=== PATIENT | female | born 1985 | race Caucasian/White ===

== ENCOUNTER 2017-03-22 01:49 | Emergency (ER) | payer MEDICARE, MEDICAID ==
[~2017-03-22] VITALS: Ht 172.7 cm; Wt 205.5 kg
[~2017-03-22 01:49] MED LIST: ADVAIR DISK28 PUFFS IN; ALBUTEROL-200 PUFFS/ IH; ALBUTEROL2.5 MG/NEB IN; ALLOPURINOL100 MG PO; AMLODIPINE10 MG PO; BUSPAR 5MG TAB5 MG PO; CELEXA PO; CLONIDINE 0.2M0.2 MG PO; COLCRYS0.6 MG GT; DULERA1 AR1 IH; FLEXERIL10 MG PO; FLONASE 50 MCG16 GM; GABAPENTIN100 M1 PO; IMITREX 25MG TA25 MG PO; INCRUSE EL62.5 MCG/A IH; KEFLEX 500MG.500 MG PO; KLONOPIN1 MG PO; LIBRIUM10 MG PO; LISINOPRIL/HCTZ1 TA3 PO; METFORMIN500 MG PO; NORCO 325 MG-51 TAB PO; NOVOLIN 70/30 710 ML SC; PATANASE0.6% NS; PREDNISONE 20MG20 MG PO; PRILOSEC40 MG PO; RANITIDINE150 M1 PO; REGLAN 5MG TABLE5 MG PO; SINGULAIR10 MG PO; SYMLIN0.6 MG/ML SC; THEO-24200 MG PO; TOPAMAX100 MG PO; TRAZODONE100 MG PO; TUDORZA PR400 MCG/Ac IH; TYLENOL W/CODEI1 TA2 PO; ZOFRAN ODT4 MG PO
[2017-03-22 03:03] LABS: LYMPH # 1.8 K/mm3 (0.7-4.5); LYMPH % 12.6 % (10-50.0)
[2017-03-22 03:12] LABS: HEMOGLOBIN 10.3 g/dL (12.2-16.2)
--- NOTE | 2017-03-22 03:45 | Emergency Room Report ---
History of Present Illness Time Seen by MD Wilson Presenting Problem in Triage Pt arrived:Wheelchair Presenting Problem:RIGHT MID QUADRANT PAIN STARTED A FEW HOURS AGO, N/V/ VOMITED TWICE. 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 N Clinical Suspician of Infection? N Mental Status: 1 - Regular (Normal Baseline) Sepsis Risk:Possible Sepsis Risk Have you (or family members/close friends) recently traveled outside the [place]? N If Yes, where/when: Have you had exposure to infectious disease within the past month? N TB? Other? Specify: Source patient, RN notes reviewed, family, old records Exam Limitations no limitations Comment pt with rt sided abd pain which pt has had in past with sl diarrhea but no rash or trauma Cardiac Chest Pain Chest pain indicative of cardiac No Timing/Duration this evening Severity moderate ALLERGIES Coded Allergies: Nuts (Food) (Severe, S-ANAPHYLAXIS 03/08/16) flaxseed (Mild, 03/08/16) latex (Mild, 03/08/16) Penicillins (08/15/16) Home Medications Active Scripts Prednisone (Prednisone 20MG) 20 MG PO BID #10 TAB Prov: 03/20/13 Ondansetron (Zofran 4MG Odt) 4 MG PO Q8HP PRN NAUSEA AND VOMITING #10 ODT Prov: 07/18/16 Reported Medications ALBUTEROL (Albuterol 0.083% Neb) 2.5 MG IN PRN Albuterol (Albuterol-Hfa Inhaler) 2 PUFFS IH PRN #1 INH [CELEXA] 1 TAB PO DAILY Trazodone Hcl (Trazodone HCl) 100 MG PO QHS Montelukast Sodium (Singulair) 10 MG PO QHS Topiramate (Topamax) 100 MG PO DAILY Sumatriptan Succinate (Imitrex 25MG Tablet) 25 MG PO PRN THEOPHYLLINE (Theophylline Anhydrous) 300 MG PO BID Clonazepam (Klonopin 1MG) 1 MG PO BID Clonidine Hydrochloride (Clonidine 0.2MG Tab) 0.1 MG PO BID Fluticasone Propionate (Flonase 50 Mcg Nasal [place]) 1 SPRAY NA BID Amlodipine Besylate (Amlodipine) 10 MG PO DAILY Allopurinol 100 MG PO TID Omeprazole (Prilosec 40mg Cap) 40 MG PO DAILY OLOPATADINE HCL (Patanase NASAL) 1 SPRAY NS BID Gabapentin (Gabapentin 100MG) 100 MG PO TID Metoclopramide Hcl (Reglan) 5 MG PO AC FLUTICASONE/SALMETEROL (Advair 500-50 Diskus) 1 PUFF IN BID UMECLIDINIUM BROMIDE (Incruse Ellipta) 62.5 MCG IH DAILY History Medical History General CAD? No Angina: No [place]: No Hypertension? Yes Hyperlipidemia? No CHF? No DVT? No PE? No COPD? No Asthma? Yes Anemia? No GERD? No Gastric ulcers? No GI Bleed? No Hernia? No Thyroid Problems? No Hypothyroidism? No CVA? No Seizures? Yes Diabetes? Yes Insulin Dependent: Yes Insulin Pump: No Home FSBS? Yes Renal Insuffiency? No End Stage Renal Disease? No UTI? No Stones? No BPH? No GB Disease: No Nephritic Syndrome? No Asplenia? No Hepatitis? No Sickle Cell Disease? No Arthritis? No Migraines? Yes Cataracts? No Glaucoma? No MRSA? No HIV? No TB? No Anxiety? No Depression? No Cancer? No More? 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 Respiratory denies cough, denies shortness of breath, denies wheezing Cardiovascular denies chest pain, denies syncope Gastrointestinal see HPI, abdominal pain, nausea Genitourinary denies: dysuria, frequency, hesitancy, hematuria. Musculoskeletal denies back pain, denies joint pain, denies joint swelling, denies neck pain Skin denies rash Psychiatric/Neurological denies headache, denies seizure Physical Exam Vital Signs Vital Signs Date Time Temp Pulse Resp B/P Pulse O2 O2 Flow FiO2 Ox Delivery Rate 03/22 0311 20 03/22 0154 97.7 104 20 153/76 94 - WBC >12,000 or <4,000 or 10% bands? 2 or more SIRS Criteria Met? B/P:153/ MAP:101 Creatinine >2.0? UA output<0.5ml/kg/hr for 2 hrs? Platelet count >100,000? Lactate >2.0mmol/1? INR >1.2 or PTT > than 60 sec? Evidence of Organ Dysfunction? Provider documented clinical suspician of infection? N Sepsis Criteria Count: 2 Sepsis Risk: Possible Sepsis Risk General Appearance no apparent distress Eye Exam - bilateral eye PERRL, bilateral eye EOMI Ear, Nose, Throat normal ENT inspection Neck limited range of motion Respiratory Status No: respiratory distress. 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 No Results/Orders Laboratory Tests 03/22/17 0255: Sodium 146 H, Potassium 3.0 L, Chloride 107, Carbon Dioxide 28, BUN 12, Creatinine 1.0, Estimated Creat Clear 262 H, Estimated GFR (MDRD) 64, Glucose 99, Calcium 8.7, Total Bilirubin 0.4, AST 12 L, ALT 18, Alkaline Phosphatase 128 H, Total Protein 7.0, Albumin 3.3 L, Globulin 3.7 H, Albumin/Globulin Ratio 0.9 L, Amylase 13 L, Lipase 98, WBC 14.1 H, RBC 4.06 L, Hgb 10.3 L, Hct 34.3 L, MCV 84.4, RDW 15.6, Plt Count 225, MPV 7.7, Gran % 83.6 H, Gran # 11.8 H, Lymphocytes % 12.6, Monocytes % 2.9, Eosinophils % 0.6, Basophils % 0.3 , Lymphocytes # 1.8, Monocytes # 0.4, Eosinophils # 0.1, Basophils # 0.1, PUBS MCHC 30.1 L, MCH 25.4 L Current Medication Orders Sig/Lola Start time Last Medication Dose Route Stop Time Status Admin Ketorolac 30 MG ONCE ONE 03/22 315 DC 03/22 Tromethamine IV 03/22 316 0311 Ondansetron HCl 4 MG ONCE ONE 03/22 315 DC 03/22 IV 03/22 316 0310 Ondansetron HCl 0 .STK-MED ONE 03/22 0308 DC .ROUTE Ketorolac 0 .STK-MED ONE 03/22 0307 DC Tromethamine .ROUTE Sodium Chloride 10 ML PRN PRN 03/22 0215 AC IV 03/23 0201 Sodium Chloride 1,000 ML .STK-MED ONE 03/22 0209 DC IV Orders Procedure Date/time Status DIET-NOTHING BY MOUTH 03/[address] ABD & PELVIS W/O CONTRAST 03/[address] SCAN REQ 03/22 020 Active IV SALINE LOCK 03/22 020 Active URINALYSIS/COMPLETE 03/22 0201 Active LIPASE 03/22 0201 Complete COMPLETE METABOLIC PANEL 03/22 0201 Complete CBC WITH AUTO DIFF 03/22 0201 Complete AMYLASE 03/22 0201 Complete XRAY/CT/US XRAY/CT/US CT abdomen, pelvis CT interpretation by discussed w/radiologist Time results known: 0342 CT Results abnormal (see report) Departure Departure Time of Disposition 034 Disposition DC Home or Self Care(routine) Clinical Impression Primary Impression: Acute flank pain Condition STABLE Patient Instructions DI for Flank Pain Additional Instructions keep apt thursday with pcp and use meds as directed Discharge Counseling Counseled pt/family regarding diagnosis, test results, medications/RX, follow up needs Prescriptions Current Visit Scripts CEPHALEXIN (Keflex 500MG Capsule) 500 MG PO Q8H #21 CAP ED Critical Care Critical Care No at 0404
[2017-03-22] MEDS ORDERED: KEFLEX 500MG.500 MG PO (04:04)
[2017-03-22 04:27] VITALS: BP 143/72
--- NOTE | 2017-03-22 09:08 | RADIOLOGY REPORT PS360 ---
CT ABD PELVIS W/O CONTRAST CLINICAL INDICATION: Right upper quadrant abdominal pain ABD PAIN ORDERING PHYSICIAN: Peri Quintero MD PATIENT AGE: 32 years COMPARISON: 09/12/2016 TECHNIQUE: Axial images obtained with sagittal and coronal reformats. PROCEDURE: Oral Contrast: None IV Contrast: None . FINDINGS: Lung bases are clear. There are old fractures of the right eighth and ninth ribs. The exam is limited secondary to patient body habitus and the field of view. The peripheral part of the liver inferiorly as well as the anterior abdominal wall is incompletely visualized. There is hepatosplenomegaly. No focal liver lesion is demonstrated however peripheral lesions may not be detected. No hydronephrosis or hydroureter. Unremarkable adrenal glands and pancreas. No intestinal obstruction or free air. No evidence of appendicitis or diverticulitis. No abnormal fluid collection is evident. No acute bony anomalies. There is mild diffuse subcutaneous edema of the lower abdomen and pelvis IMPRESSION: 1. Nondisplaced right eighth and ninth rib fractures. 2. Hepatosplenomegaly. 3. Mild anasarca
== END 2017-03-22 04:28 | disposition home or self-care (01) ==
LOC: ER 01:49
PROVIDERS: Emergency Medicine
DX: R10.9 Unspecified abdominal pain (principal); E11.9 Type 2 diabetes mellitus without complications; R56.9 Unspecified convulsions; Z79.51 Long term (current) use of inhaled steroids; Z79.899 Other long term (current) drug therapy; I10 Essential (primary) hypertension; J45.909 Unspecified asthma, uncomplicated; Z79.4 Long term (current) use of insulin
CPT/HCPCS: J2405

== ENCOUNTER 2017-04-05 18:03 | Emergency (ER) | payer MEDICARE, MEDICAID ==
[~2017-04-05] VITALS: Ht 172.7 cm; Wt 207.3 kg
--- NOTE | 2017-04-05 18:41 | Emergency Room Report ---
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 N Clinical Suspician of Infection? Y Mental Status: 1 - Regular (Normal Baseline) Sepsis Risk:Low Sepsis Risk Have you (or family members/close friends) recently traveled outside the [place]? N If Yes, where/when: Have you had exposure to infectious disease within the past month? TB? Other? Specify: 52 years old white female on her fourth visit this year because of the same complaint which is right-sided abdominal pain. She underwent 3 CT scans and the oral shows hepatomegaly and fatty liver, IN ONE CT scan showed splenomegaly. She underwent a negative ultrasound for gallbladder. Yesterday she developed RECURRENT RIGHT side of abdominal pain, associated with vomiting X 4 and diarrhea times X 4. She denies having hematemesis coffee-ground emesis is rectal bleeding or melanotic stool. He has no dysuria or hematuria. She is aware that she needs a weight reduction intervention. Source patient, RN notes reviewed, family, old records Exam Limitations no limitations ALLERGIES Coded Allergies: Nuts (Food) (Severe, S-ANAPHYLAXIS 04/05/17) flaxseed (Mild, 04/05/17) latex (Mild, 04/05/17) Penicillins (04/05/17) Home Medications Active Scripts Prednisone (Prednisone 20MG) 20 MG PO BID #10 TAB Prov: 03/20/13 CEPHALEXIN (Keflex 500MG Capsule) 500 MG PO Q8H #21 CAP Prov: 03/22/17 Ondansetron (Zofran 4MG Odt) 4 MG PO Q8HP PRN NAUSEA AND VOMITING #10 ODT Prov: 07/18/16 Reported Medications ALBUTEROL (Albuterol 0.083% Neb) 2.5 MG IN PRN Albuterol (Albuterol-Hfa Inhaler) 2 PUFFS IH PRN #1 INH [CELEXA] 1 TAB PO DAILY Trazodone Hcl (Trazodone HCl) 100 MG PO QHS Montelukast Sodium (Singulair) 10 MG PO QHS Topiramate (Topamax) 100 MG PO DAILY Sumatriptan Succinate (Imitrex 25MG Tablet) 25 MG PO PRN THEOPHYLLINE (Theophylline Anhydrous) 300 MG PO BID Clonazepam (Klonopin 1MG) 1 MG PO BID Clonidine Hydrochloride (Clonidine 0.2MG Tab) 0.1 MG PO BID Fluticasone Propionate (Flonase 50 Mcg Nasal [place]) 1 SPRAY NA BID Amlodipine Besylate (Amlodipine) 10 MG PO DAILY Allopurinol 100 MG PO TID Omeprazole (Prilosec 40mg Cap) 40 MG PO DAILY OLOPATADINE HCL (Patanase NASAL) 1 SPRAY NS BID Gabapentin (Gabapentin 100MG) 100 MG PO TID Metoclopramide Hcl (Reglan) 5 MG PO AC FLUTICASONE/SALMETEROL (Advair 500-50 Diskus) 1 PUFF IN BID UMECLIDINIUM BROMIDE (Incruse Ellipta) 62.5 MCG IH DAILY History Medical History General CAD? No Angina: No [place]: No Hypertension? Yes Hyperlipidemia? No CHF? No DVT? No PE? No COPD? No Asthma? Yes Anemia? No GERD? No Gastric ulcers? No GI Bleed? No Hernia? No Thyroid Problems? No Hypothyroidism? No CVA? No Seizures? Yes Diabetes? Yes Insulin Dependent: Yes Insulin Pump: No Home FSBS? Yes Renal Insuffiency? No End Stage Renal Disease? No UTI? No Stones? No BPH? No GB Disease: No Nephritic Syndrome? No Asplenia? No Hepatitis? No Sickle Cell Disease? No Arthritis? No Migraines? Yes Cataracts? No Glaucoma? No MRSA? No HIV? No TB? No Anxiety? No Depression? No Cancer? No More? 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 Respiratory no symptoms reported Cardiovascular no symptoms reported Gastrointestinal see HPI, abdominal pain, diarrhea, nausea, vomiting Genitourinary no symptoms reported. Musculoskeletal no symptoms reported Skin no symptoms reported Psychiatric/Neurological no symptoms reported Physical Exam Vital Signs Vital Signs Date Time Temp Pulse Resp B/P Pulse O2 O2 Flow FiO2 Ox Delivery Rate 04/05 2101 98.8 98 18 136/71 92 04/05 2008 14 04/05 1850 18 04/05 1813 98.3 89 18 137/59 98 - WBC >12,000 or <4,000 or 10% bands? 2 or more SIRS Criteria Met? B/P:137/59 MAP:85 Creatinine >2.0? UA output<0.5ml/kg/hr for 2 hrs? Platelet count >100,000? Lactate >2.0mmol/1? INR >1.2 or PTT > than 60 sec? Evidence of Organ Dysfunction? Provider documented clinical suspician of infection? Y Sepsis Criteria Count: 1 Sepsis Risk: Low Sepsis Risk General Appearance normal appearance, WD/WN Eye Exam - bilateral eye normal exam, bilateral eye PERRL, bilateral eye EOMI Ear, Nose, Throat hearing grossly normal, normal ENT inspection Neck normal inspection, non-tender, supple, full range of motion Respiratory Status Yes: trachea midline, chest symmetrical, non tender chest. No: respiratory distress. Lung Sounds bilateral: normal breath sounds, lungs clear. Cardiovascular normal exam, regular rate/rhythm, no peripheral edema, no gallop, no JVD, no murmur, no rub, normal peripheral pulses Gastrointestinal normal bowel sounds, normal exam, soft, no guarding, no rebound , tenderness, LARGE PENDULOUS ABDOMEN, THE SKIN HAS LYMPHEDEMA, TENDERNESS ON THE right UPPER QUADRANTS, NO GUARDING NO RIGIDITY, NO right LOWER QUADRANT TENDERNESS, POSITIVE BOWEL SOUNDS. 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 No Results/Orders Laboratory Tests 04/05/17 2030: Lactic Acid 1.8 04/05/17 1842: Urine Color YELLOW, Urine Appearance CLEAR, Urine pH 7.0, Ur Specific [place] 1.010, Urine Protein NEGATIVE, Urine Ketones NEGATIVE, Urine Blood NEGATIVE, Urine Nitrate NEGATIVE, Urine Bilirubin NEGATIVE, Urine Urobilinogen 4.0, Ur Leukocyte Esterase NEGATIVE, Ur Squamous Epith Cells 3-5, Urine Renal Cells 3-5, Urine Glucose NEGATIVE 04/05/171827: Sodium 139, Potassium 3.9, Chloride 104, Carbon Dioxide 29, BUN 10, Creatinine 1.1 H, Estimated Creat Clear 240 H, Estimated GFR (MDRD) 58 L, Glucose 208 H , Calcium 9.1, Total Bilirubin 0.4, AST 15, ALT 15, Alkaline Phosphatase 112, Total Protein 7.0, Albumin 3.3 L, Globulin 3.7 H, Albumin/Globulin Ratio 0.9 L, Lipase 100, WBC 14.3 H, RBC 4.25, Hgb 10.7 L, Hct 35.7 L, MCV 84.0, RDW 16.0, Plt Count 284, MPV 7.4, Gran % 86.3 H, Gran # 12.3 H, Total Counted 100, Lymphocytes % 9.7 L, Monocytes % 2.8, Eosinophils % 0.8, Basophils % 0.3, Neutrophils 85 H, Band Neutrophils 7, Lymphocytes (Manual) 8 L, Lymphocytes # 1.4, Monocytes # 0.4, Eosinophils # 0.1, Basophils # 0.1, Platelet Estimate NORMAL, Hypochromasia 3+, Poikilocytosis SL., Anisocytosis 1+, Microcytosis 1+, Rouleaux SL., PUBS MCHC 29.9 L, MCH 25.1 L Current Medication Orders Sig/Lola Start time Last Medication Dose Route Stop Time Status Admin Morphine Sulfate 4 MG ONCE ONE 04/05 2130 AC IV 04/05 2131 Promethazine HCl 25 MG ONCE ONE 04/05 2130 AC IV 04/05 2131 Sodium Chloride 25 ML ONCE ONE 04/05 2130 AC IV 04/05 2144 Trimethoprim/ 2 TABLET ONCE ONE 04/05 2130 CKDr Sulfamethoxazole PO 04/05 2131 Iopamidol 100 ML ONCE ONE 04/05 2030 UNV 04/05 IV 04/05 Sodium Chloride 10 ML ONCE ONE 04/05 2030 UNV 04/05 IV 04/05 Metronidazole 100 ML ONCE ONE 04/05 193 DC 04/05 IV 04/05 Morphine Sulfate 4 MG ONCE ONE 04/05 193 DC 04/05 IV 04/05 Sodium Chloride 1,000 ML .Q1H1M 04/05 1930 DC 04/05 IV 04/05 Sodium Chloride 10 ML PRN PRN 04/05 1930 AC IV 04/06 1921 Metronidazole 100 ML .STK-MED ONE 04/05 1929 DC IV Sodium Chloride 1,000 ML .STK-MED ONE 04/05 1929 DC IV Morphine Sulfate 0 .STK-MED ONE 04/05 1928 DC .ROUTE Ondansetron HCl 0 .STK-MED ONE 04/05 1854 DC .ROUTE Ondansetron HCl 0 .STK-MED ONE 04/05 1849 DC .ROUTE Ketorolac 0 .STK-MED ONE 04/05 1848 DC Tromethamine .ROUTE Loperamide HCl 0 .STK-MED ONE 04/05 1848 DC PO Ketorolac 30 MG ONCE ONE 04/05 184 DC 04/05 Tromethamine IV 04/05 184 185 Loperamide HCl 4 MG ONCE ONE 04/05 184 DC 04/05 PO 04/05 184 185 Ondansetron HCl 8 MG ONCE ONE 04/05 184 DC 04/05 IV 04/05 184 185 Orders Procedure Date/time Status DIET-NOTHING BY MOUTH 04/[address] ABD & PELVIS W/ CONTRAST 04/05 1941 Active URINE 04/05 1935 Complete CULTURE, BLOOD 04/05 1922 Active LACTIC ACID 04/[address] ABD/PELVIS REQ 04/05 1920 Active ABD ACUTE(MUL VIEWS) 04/05 1842 Active URINALYSIS/COMPLETE 04/05 1842 Complete LIPASE 04/05 1842 Complete CBC WITH AUTO DIFF 04/05 1842 Complete CHEM 12 PROFILE 04/05 1842 Complete DIFFERENTIAL-WBC 04/05 1828 Complete CM/EKG CM/EKG EKG rate, NSR, rhythm, no evid. of ischemic chgs, no ectopy, normal QRS, normal TN, normal EKG, no EKG for comparison, non-spec. ST/Twave chgs, ST elevation, ST depression, LBBB, RBBB, ectopy, abnormal Q waves Comments Normal sinus rhythm 81/m, normal. QRS and T waves no acute findings. Departure Departure Time of Disposition 1835 Disposition Still a Patient Clinical Impression Primary Impression: Cellulitis Secondary Impressions: Left against medical advice, Uncontrolled diabetes mellitus Condition STABLE Referrals [facility] Additional Instructions The CT scan reported no intra-abdominal pathology she had this standing on the anterior abdominal wall suggestive for cellulitis. The patient refused admission and she preferred outpatient therapy. If she is not any better she will go to [place]. The patient tolerated the first dose of antibiotic. She is that she needed to maintain diet controlled diabetes. And to return if she cannot keep her antibiotics down. She was discharged in a stable condition, she was given a copy of her CT scan report . she will sign against medical advise. Discharge Counseling Counseled pt/family regarding diagnosis, test results, medications/RX, home care, follow up needs Prescriptions Current Visit Scripts SULFAMETHOXAZOLE W/TRIMETHOPRI (Bactrim Ds Tab) 2 TABLET PO BID #40 TAB PROMETHAZINE HCL (Promethazine 25mg Tab) 25 MG PO Q6HP PRN nausea #12 TAB ED Critical Care Critical Care No If Critical Care minutes are documented, the time involved in the performance of seperately reportable procedures was not counted toward critical care time documented. I directly delivered medical care to this critically ill and/or injured patient. Timely evaluation and treatment was necessary to address the significant organ system(s) dysfunction present in this patient. at [id number]
[2017-04-05 18:47] LABS: HEMOGLOBIN 10.7 g/dL (12.2-16.2); LYMPH # 1.4 K/mm3 (0.7-4.5); LYMPH % 9.7 % (10-50.0)
[2017-04-05 19:00] LABS: URINE BILIRUBIN - DIPSTICK NEGATIVE (NEG); URINE BLOOD NEGATIVE (NEG)
[2017-04-05 19:17] LABS: NEUTROPHILS 85 % (42-76)
[2017-04-05] MEDS ORDERED: PROMETHAZINE HC25 M1 PO ×2 (21:25→21:26)
[2017-04-05] MEDS ORDERED: BACTRIM DS 8001 TA1 PO ×2 (21:25→21:26)
--- NOTE | 2017-04-05 22:00 | RADIOLOGY REPORT PS360 ---
CT ABD PELVIS W/ CONTRAST CLINICAL INDICATION: Abdominal pain and tenderness, right lower quadrant pain, abdominal swelling RLQ PAIN ORDERING PHYSICIAN: Sierra Bolton MD PATIENT AGE: 32 years COMPARISON: 03/22/2017 TECHNIQUE: Axial images obtained with sagittal and coronal reformats. PROCEDURE: Oral Contrast: None IV Contrast: None . FINDINGS: Image detail is degraded secondary to artifact related patient's body habitus. Lung bases are clear. Nondisplaced healed right eighth and ninth rib fractures. Hepatosplenomegaly stable. No radio opaque gallstone. The adrenal glands, pancreas, and kidneys are unremarkable. No intestinal obstruction or air evident. No pelvic mass or abnormal collection. The appendix is not well delineated. No evidence of appendicitis, intestinal obstruction, free air, or diverticulitis. There is diffuse stranding of the subcutaneous fat of the anterior abdominal wall in the infraumbilical area unchanged. No acute bony anomalies. IMPRESSION: 1. Stranding of the subcutaneous fat in the infraumbilical region in the intra-abdominal wall similar to the previous exam which may be due to cellulitis or anasarca. There is diffuse stranding of subcutaneous fat in the lumbar region probably due to anasarca. 2. Hepatosplenomegaly
--- NOTE | 2017-04-05 22:21 | RADIOLOGY REPORT PS360 ---
ABD ACUTE(MUL VIEWS) HISTORY: Nausea, vomiting, diarrhea NVD ORDERING PHYSICIAN: Sierra Bolton MD PATIENT AGE: 32 years COMPARISON: None FINDINGS: There is cardiomegaly with mild pulmonary venous congestion. Upright and supine views of the abdomen are very limited secondary to patient's body habitus. Bowel gas pattern is nonspecific. No definite evidence of obstruction or free air. There is some increased density in the right hilum suggesting mild underlying adenopathy. IMPRESSION: 1. Mild CHF. Possible mild right hilar adenopathy. 2. Nonspecific nonobstructive bowel gas pattern
[2017-04-05 22:58] VITALS: BP 156/88
== END 2017-04-05 23:02 | disposition still patient (30) ==
LOC: ER 18:03
PROVIDERS: Emergency Medicine
DX: R10.11 Right upper quadrant pain (principal); K76.0 Fatty (change of) liver, not elsewhere classified; E11.65 Type 2 diabetes mellitus with hyperglycemia; Z79.4 Long term (current) use of insulin; J45.909 Unspecified asthma, uncomplicated; I10 Essential (primary) hypertension; Z88.0 Allergy status to penicillin; Z91.040 Latex allergy status; Z91.018 Allergy to other foods
CPT/HCPCS: J2405

== ENCOUNTER 2017-05-08 19:01 | Emergency (ER) | payer MEDICARE, MEDICAID ==
[~2017-05-08] VITALS: Ht 172.7 cm; Wt 207.7 kg
[~2017-05-08 19:01] MED LIST changes: +BACTRIM DS 8001 TA1 PO; +PROMETHAZINE HC25 M1 PO
[2017-05-08] MEDS ORDERED: ACETAMINOPHEN-H1 TA1 PO (19:20)
--- NOTE | 2017-05-08 20:13 | Emergency Room Report ---
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 N Clinical Suspician of Infection? N Mental Status: 1 - Regular (Normal Baseline) Sepsis Risk:Low Sepsis Risk Have you (or family members/close friends) recently traveled outside the [place]? N If Yes, where/when: Have you had exposure to infectious disease within the past month? N TB? Other? Specify: Source patient, RN notes reviewed, family, old records Exam Limitations no limitations Comment pt with hx of known migraines and has pending appt with neuro - she has used meds at home but still has nguyen which started yesterday - no new sx Cardiac Chest Pain Chest pain indicative of cardiac No Timing/Duration this evening Severity moderate ALLERGIES Coded Allergies: Nuts (Food) (Severe, S-ANAPHYLAXIS 04/05/17) flaxseed (Mild, 04/05/17) latex (Mild, 04/05/17) Penicillins (04/05/17) Home Medications Active Scripts Prednisone (Prednisone 20MG) 20 MG PO BID #10 TAB Prov: 03/20/13 Ondansetron (Zofran 4MG Odt) 4 MG PO Q8HP PRN NAUSEA AND VOMITING #10 ODT Prov: 07/18/16 PROMETHAZINE HCL (Promethazine 25mg Tab) 25 MG PO Q6HP PRN nausea #6 TAB Prov: 04/05/17 PROMETHAZINE HCL (Promethazine 25mg Tab) 25 MG PO Q6HP PRN nausea #12 TAB Prov: 04/05/17 Reported Medications ALBUTEROL (Albuterol 0.083% Neb) 2.5 MG IN PRN Albuterol (Albuterol-Hfa Inhaler) 2 PUFFS IH PRN #1 INH [CELEXA] 1 TAB PO DAILY Trazodone Hcl (Trazodone HCl) 100 MG PO QHS Montelukast Sodium (Singulair) 10 MG PO QHS Topiramate (Topamax) 100 MG PO DAILY Sumatriptan Succinate (Imitrex 25MG Tablet) 25 MG PO PRN THEOPHYLLINE (Theophylline Anhydrous) 300 MG PO BID Clonazepam (Klonopin 1MG) 1 MG PO BID Clonidine Hydrochloride (Clonidine 0.2MG Tab) 0.1 MG PO BID Fluticasone Propionate (Flonase 50 Mcg Nasal [place]) 1 SPRAY NA BID Amlodipine Besylate (Amlodipine) 10 MG PO DAILY Allopurinol 100 MG PO TID Omeprazole (Prilosec 40mg Cap) 40 MG PO DAILY Gabapentin (Gabapentin 100MG) 100 MG PO TID Metoclopramide Hcl (Reglan) 5 MG PO AC FLUTICASONE/SALMETEROL (Advair 500-50 Diskus) 1 PUFF IN BID UMECLIDINIUM BROMIDE (Incruse Ellipta) 62.5 MCG IH DAILY HYDROCODONE/ACETAMINOPHEN (Hydrocodon-Acetaminophn 10-325) 1 TAB PO Q8HP PRN PAIN History Medical History General CAD? No Angina: No [place]: No Hypertension? Yes Hyperlipidemia? No CHF? No DVT? No PE? No COPD? No Asthma? Yes Anemia? No GERD? No Gastric ulcers? No GI Bleed? No Hernia? No Thyroid Problems? No Hypothyroidism? No CVA? No Seizures? Yes Diabetes? Yes Insulin Dependent: Yes Insulin Pump: No Home FSBS? Yes Renal Insuffiency? No End Stage Renal Disease? No UTI? No Stones? No BPH? No GB Disease: No Nephritic Syndrome? No Asplenia? No Hepatitis? No Sickle Cell Disease? No Arthritis? No Migraines? Yes Cataracts? No Glaucoma? No MRSA? No HIV? No TB? No Anxiety? Yes Depression? Yes Cancer? No More? 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 Respiratory denies cough, denies shortness of breath, denies wheezing Cardiovascular denies chest pain, denies palpitations, denies syncope Gastrointestinal denies abdominal pain, denies diarrhea, denies vomiting Genitourinary denies: dysuria, frequency, hesitancy, hematuria. Musculoskeletal denies back pain, denies joint pain, denies neck pain Skin denies rash Psychiatric/Neurological see HPI, headache, denies seizure Physical Exam Vital Signs Vital Signs Date Time Temp Pulse Resp B/P Pulse O2 O2 Flow FiO2 Ox Delivery Rate 05/08 2009 98.7 81 20 155/94 94 05/08 1911 98.1 80 18 162/80 99 - WBC >12,000 or <4,000 or 10% bands? 2 or more SIRS Criteria Met? B/P:155/94 MAP:107 Creatinine >2.0? UA output<0.5ml/kg/hr for 2 hrs? Platelet count >100,000? Lactate >2.0mmol/1? INR >1.2 or PTT > than 60 sec? Evidence of Organ Dysfunction? Provider documented clinical suspician of infection? N Sepsis Criteria Count: 0 Sepsis Risk: Low Sepsis Risk General Appearance no apparent distress Eye Exam - bilateral eye PERRL, bilateral eye EOMI Ear, Nose, Throat normal ENT inspection Neck supple Respiratory Status No: respiratory distress. 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 No Departure Departure Time of Disposition 2012 Disposition DC Home or Self Care(routine) Clinical Impression Primary Impression: Headache Qualifiers: Headache type: unspecified Headache chronicity pattern: acute headache Intractability: not intractable Qualified Code: R51 - Headache Condition STABLE Referrals LENNY COLE (Family) Patient Instructions DI for Headache Additional Instructions use regular meds and call your pcp for follow up Discharge Counseling Counseled pt/family regarding diagnosis, medications/RX, follow up needs ED Critical Care Critical Care No at 2018
--- OUTSIDE RECORDS SUMMARY | 2017-05-08 20:31 | External Medical Summary Rpt | CCD ---
Author Author , KENDALL Organization KENDALL Address Unknown Phone [email or web address] Care Team Providers Care Outsole Rounder Name Role Phone ABDALISIA ELIGIO, Unavailable Unavailable ABDALLAH ELIGIO ANCIRO, ZAHRA, Unavailable Unavailable ANCIRO, ZAHRA BANKERS BRA, BANKERS Unavailable Unavailable BRA DEBORA ANI, DEBORA Unavailable Unavailable ANI DEBORA ANI, DEBORA Unavailable Unavailable ANI GORDON, GORDON Unavailable Unavailable GORDON REGAN, GORDON Unavailable Unavailable REGAN DEVIN III LADONNA, Unavailable Unavailable DEVIN III LADONNA BRANDSER ESTHER, Unavailable Unavailable BRANDSER ESTHER BROWN-RAVI, Unavailable Unavailable BROWN-RAVI BROWN-RAVI LAT, Unavailable Unavailable BROWN-RAVI LAT BUDHANI IRF, BUDHANI Unavailable Unavailable IRF REDMOND DON, REDMOND DON Unavailable Unavailable WALESKA SIMEON, Unavailable Unavailable WALESKA SIMEON DANNEMAN HOL, Unavailable Unavailable DANNEMAN HOL DAVREN ESTHER, DAVREN Unavailable Unavailable ESTHER VIOLET NARCISO, VIOLET Unavailable Unavailable NARCISO NETO WAE, NETO WAE Unavailable Unavailable [facility] BARRETOZAHRA FARMER R, Unavailable Unavailable ZAHRA BARRETO R FERTIKH ELIGIO, FERTIKH Unavailable Unavailable ELIGIO DOUGLAS JAYESH, DOUGLAS JAYESH Unavailable Unavailable [facility] Unavailable Unavailable [facility] DUSTIN, Unavailable Unavailable [facility] Lissy SINGH A, Unavailable Unavailable HEDRICK-RONALD, E A YOKASTA, YOKASTA Unavailable Unavailable [facility] Un[facility] Un[facility], [facility] NORBERT KATZ, Unavailable Unavailable VENTURA WHEAT Unavailable Unavailable [facility], Unavailable Unavailable [facility] Unavailable Unavailable [facility], [facility] LE HIE, LE HIE Unavailable Unavailable [facility] Unavailable Un[facility], [facility] SANJIV FINA, SANJIV Unavailable Unavailable FINA CROOKS, KWAME DAKSHA Unavailable Unavailable Peri Quintero MD, Unavailable Unavailable Peri Quintero MD GARCIA BYR, JOSE BYR Unavailable Unavailable BRIDGES ABHINAV, Unavailable Unavailable [facility] RIDDLE JAM, RIDDLE Unavailable Unavailable JAM MEDEYINLO BREANNA, Unavailable Unavailable MEDEYINLO BREANNA PATRIA ATT, PATRIA Unavailable Unavailable ATT MILES PAT, MILES PAT Unavailable Unavailable BRO BRA, BRO Unavailable Unavailable BRA AGUILAR MAR, AGUILAR MAR Unavailable Unavailable ROBER TONY, ROBER Unavailable Unavailable TONY CONKLIN ZAYRA, CONKLIN Unavailable Unavailable ZAYRA NEILS ESTHER, NEILS ESTHER Unavailable Unavailable [facility] Unavailable Unavailable LAB, [facility], Unavailable [facility]available [facility], Unavailable Unavailable [facility] HUNTER SOP, HUNTER Unavailable Unavailable [facility] Unavailable Unavailable [facility] SANTILLAN JR, WILLIAM Unavailable JACQUE Markham JR, LISA Yuan [facility], Unavailable Unavailable [facility] ANA GULSHAN, Unavailable Unavailable ANA GULSHAN ANA GULSHAN, Unavailable Unavailable ANA GULSHAN TERESITA CHR, TERESITA CHR Unavailable Unavailable TEMPLETON CHR, TEMPLETON Unavailable Unavailable CHR TEMPLETON GAR, TEMPLETON Unavailable Unavailable GAR TEMPLETON JAM, TEMPLETON Unavailable Unavailable JAM SCHMITTER GULSHAN, Unavailable Unavailable SCHMITTER GULSHAN SILVIA TONY, SILVIA TONY Unavailable Unavailable SHARP JESUS, SHARP JESUS Unavailable Unavailable SELWYN CHRIS, Unavailable Unavailable SELWYN CHRIS [facility], Unavailable Unavailable [facility], Unavailable Unavailable [facility] Unavailable Unavailable [facility], [facility] Unavailable Unavailable [facility], Unavailable Unavailable [facility] Unavailable Unavailable [address], [facility] [address] [facility] Unavailable Unavailable PHYSICIANS, [facility] Unavailable Un[facility] Unavailable Unavailable [facility] Unavailable Unavailable PHYSICIANS, [facility] TANGVALD IV THO, Unavailable Unavailable TANGVALD IV THO [facility] Unavailable Unavailable MEDICAL, [facility] MEDICAL TIRONE LUIS ANGEL, TIRONE Unavailable Unavailable [facility] Unavailable Unavailable [facility], [facility] VON HOENE AMA, VON Unavailable Unavailable HOENE AMA CATIA PHI, Unavailable Unavailable CATIA PHI ELISEO BARDALES, Unavailable Unavailable ELISEO BARDALES WORLEY Unavailable Unavailable FARHEEN CAM, FARHEEN Unavailable [facility]available [facility] LARRY D SHAE HO, SHAE HO Unavailable Unavailable Purpose Continuity of Care Document - 06-12-2008 through 2016 Problems Code Diagnosis DOS Provider Status E66.01 Morbid 04-15-2017 (severe) obesity due to excess calories N17.9 Acute 02-18-2017 kidney failure, unspecified E11.69 Type 2 02-18-2017 diabetes mellitus with other specified complicatio n E11.9 Type 2 02-18-2017 diabetes mellitus without complicatio ns E66.9 Obesity, 02-18-2017 unspecified J44.9 Chronic 02-12-2017 obstructive pulmonary disease, unspecified N18.4 Chronic 02-12-2017 kidney disease, stage 4 (severe) Z68.44 Body mass 02-12-2017 index (bmi) 60.0-69.9, adult Z68.45 Body mass 02-12-2017 index (bmi) 70 or greater, adult J44.1 Chronic 11-25-2016 obstructive pulmonary disease with (acute) exacerbatio n J45.901 Unspecified 11-25-2016 asthma with (acute) exacerbatio n G47.33 Obstructive 11-24-2016 sleep apnea (adult) (pediatric) I10 Essential 11-24-2016 (primary) hypertensio n D649 ANEMIA 11-24-2016 [facility] UNSPECIFIED [facility] JULIO E119 TYPE 2 11-24-2016 [facility]. DIABETES [facility] MELLITUS JULIO WITHOUT COMPLICATIO NS E249 CUSHINGS 11-24-2016 ST. SYNDROME [facility] UNSPECIFIED JULIO E559 VITAMIN D 11-24-2016 ST. DEFICIENCY [facility] UNSPECIFIED JULIO E875 HYPERKALEMI 11-24-2016 ST. A [facility] JULIO I10 ESSENTIAL 11-24-2016 ST. PRIMARY [facility] HYPERTENSIO JULIO N J441 CHRONIC 11-24-2016 ST. OBSTRUCTIVE [facility] PULMONARY JULIO DZ W/EXACERBAT ION Z6845 BODY MASS 11-24-2016 ST. INDEX BMI [facility] 70 OR JULIO GREATER ADULT E6601 MORBID 11-20-2016 SEVERE [facility] OBESITY DUE PHYSICIANS TO EXCESS CALORIES G894 CHRONIC 11-20-2016 PAIN [facility] SYNDROME PHYSICIANS X08962 PAIN IN 11-20-2016 RIGHT FOOT [facility]ICIANS E1142 TYPE 2 11-18-2016 . DIABETES [facility] MELLITUS PHYSICIANS W/DIAB POLYNEUROPA THY E790 HYPERURICEM 11-18-2016 ST. IA W/O [facility] SIGNS IA & PHYSICIANS TOPHACEOUS DISEASE [id number] CHRONIC 11-18-2016 . GOUT [facility] UNSPECIFIED PHYSICIANS WITH TOPHUS J4550 SEVERE 10-23-2016 PERSISTENT [facility]HMA [facility] UNCOMPLICAT EDGE ED E1140 TYPE 2 DM 09-20-2016 . WITH [facility] DIABETIC LI NEUROPATHY UNSPECIFIED G8929 OTHER 09-20-2016 ST. CHRONIC [facility] PAIN LI J449 CHRONIC 09-20-2016 ST. OBSTRUCTIVE [facility] PULMONARY LI DISEASE UNS S90753 UNSPECIFIED 09-20-2016 ST. ASTHMA [facility] UNCOMPLICAT LI ED K219 GASTRO-ESOP 09-20-2016 ST. H REFLUX [facility] DISEASE LI WITHOUT ESOPHAGITIS R1084 GENERALIZED 09-20-2016 . ABDOMINAL [facility] PAIN LI R112 NAUSEA WITH 09-20-2016 ST. VOMITING [facility] UNSPECIFIED LI R197 DIARRHEA 09-20-2016 ST. UNSPECIFIED [facility] LI P00634 PAIN IN 09-18-2016 LEFT FOOT [facility] PHYSICIANS R1011 RIGHT UPPER 09-18-2016 QUADRANT [facility] PAIN PHYSICIANS Z6844 BODY MASS 09-18-2016 ST INDEX BMI [facility] 60.0-69.9 PHYSICIANS ADULT W03201 OTHER LONG 09-18-2016 TERM [facility] CURRENT PHYSICIANS DRUG THERAPY E669 OBESITY 09-17-2016 UNSPECIFIED [facility] PHYSICIANS G4733 OBSTRUCTIVE 09-17-2016 SLEEP [facility] APNEA ADULT PHYSICIANS PEDIATRIC E1169 TYPE 2 09-09-2016 DIABETES [place] [facility] W/OTH SPEC EDGE COMPLICATIO N E229 HYPERFUNCTI 09-09-2016 ON OF [place] [facility] EDGE UNSPECIFIED E785 HYPERLIPIDE 09-09-2016 TIFFANIE [facility] UNSPECIFIED HEALTHCARE EDGE 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 SPRAIN [place] RIGHT FOOT LI INITIAL ENCOUNTER Z6843 BODY MASS 08-04-2016 ST. INDEX BMI [facility] 50-59.9 LI ADULT Z7984 FORMATION TESTING OPERATOR 08-04-2016 [facility] HYPOGLY[facility] DRUGS D66909 PERSONAL 08-04-2016 . HISTORY OF [place] NICOTINE LI DEPENDENCE J45.51 Severe 07-23-2016 persistent asthma with (acute) exacerbatio n J45.998 Other 07-23-2016 asthma K75.81 Nonalcoholi 07-23-2016 c steatohepat itis (MUÑOZ) Z79.4 CHCF 07-23-2016 (current) use of insulin J4551 SEVERE 07-23-2016 PERSISTENT [place] ASTHMA WITH HEALTHCARE ACUTE EDGE EXACERBATIO N J9601 ACUTE 07-23-2016 RESPIRATORY [place] FAILURE HEALTHCARE WITH EDGE HYPOXIA K7581 NONALCOHOLI 07-23-2016 C [place] STEATOHEPAT HEALTHCARE ITIS EDGE D72.829 Elevated 06-06-2016 white blood cell count, unspecified R09.02 Hypoxemia 06-06-2016 E78.5 Hyperlipide 06-06-2016 tiffanie, unspecified Q00722 UNSPECIFIED 05-29-2016 ASTHMA [place] WITH ACUTE PHYSICIANS EXACERBATIO N J9691 RESPIRATORY 11-25-2015 FAILURE [place] UNSPECIFIED MED CTR [facility] WITH ST HYPOXIA Z9981 DEPENDENCE 10-09-2015 ST ON [facility] SUPPLEMENTA MED CTR [facility] L OXYGEN ST X67214 OTHER 09-24-2015 ASTHMA [facility] PHYSICIANS R079 CHEST PAIN 09-24-2015 UNSPECIFIED [facility] PHYSICIANS R609 EDEMA 09-24-2015 UNSPECIFIED [facility] PHYSICIANS R51 HEADACHE 09-04-2015 . [facility] JULIO K8050 CALCULUS BD 07-23-2015 ST W/O [facility] CHOLANGITIS PHYSICIANS /CHOLECYST W/O OBST 32304 DIAB W/O 01-01-[address] [facility] COMP TYPE MEDICAL II/UNS TYPE UNCNTRL 2518 OTH SPEC 01-01-2015 [facility] PANCREATIC MEDICAL INTERNAL SECRETION V5865 LONG-TERM 01-01-2015 [facility] USE OF HOSPITAL STEROIDS MEDICAL V5867 LONG-TERM 01-01-2015 [facility] USE OF HOSPITAL INSULIN MEDICAL 70876 OBSTRUCTIVE 12-22-2014 [facility] AP[facility] 57393 ASTHMA 12-22-2014 [facility] UNSPECIFIED PULMONARY WITH ASSOCIAT EXACERBATIO N 41419 HYPOXEMIA 12-22-2014 [facility] 3813 OTHER&UNSPE 11-13-2014 ANA C CHRONIC G[facility] NONSUPPURAT RACHEL OTITIS MEDIA 95076 UNSPECIFIED 11-13-2014 ANA GULSHAN TEMPOROMAND 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 JOINT DISORDERS 3829 UNSPECIFIED 09-26-2014 OTITIS [place] MEDIA [facility]ALTHCARE EDGE 69098 HYPERTROPHY 09-26-2014 OF [place] ADENOIDS HEALTHCARE ALONE EDGE 4760 CHRONIC 09-26-2014 ST LARYNGITIS [place] [facility] EDGE 4785 OTHER 09-26-2014 DISEASES OF [place] VOCAL HEALTHCARE CORDS EDGE 490 BRONCHITIS 09-26-2014 NOT [place] SPECIFIED HEALTHCARE ACUTE OR EDGE CHRONIC 01945 DYSPHONIA 09-26-2014 [facility] HEALTHCARE EDGE 86995 DYSPHAGIA 09-26-2014 UNSPECIFIED [place] [facility] EDGE 84573 CHRONIC 09-22-2014 ANA ADENOIDITIS GULSHAN 75011 MORBID 08-23-2014 PATIENT [facility] 83714 CHRONIC 08-23-2014 PATIENT OBSTRUCTIVE AIDS INC ASTHMA UNSPECIFIED 586 UNSPECIFIED 08-23-2014 PATIENT RENAL [facility] FAILURE 2550 CUSHINGS 07-04-2014 ST SYNDROME [facility] 0679 UNSPECIFIED 07-04-2014 ST VITAMIN D [facility] DEFICIENCY PHYSICIANS 4019 UNSPECIFIED 07-04-2014 ST ESSENTIAL [facility] HYPERTENSIO PHYSICIANS N V5869 LONG-TERM 07-04-2014 ST (CURRENT) [facility] USE OF PHYSICIANS OTHER MEDICATIONS 7038 OTHER 06-13-2014 FOOT SPECIFIED SPECIALISTS DISEASE OF OF GREATER NAIL 7295 PAIN IN 06-13-2014 FOOT SOFT SPECIALISTS TISSUES OF OF GREATER LIMB 33151 OTHER 06-13-2014 FOOT DISORDERS SPECIALISTS OF BONE AND OF GREATER CARTILAGE OTHER 79056 UNSPECIFIED 06-13-2014 FOOT SITE OF SPECIALISTS ANKLE OF GREATER SPRAIN AND STRAIN 65940 DIAB W/O 05-14-2014 ST. COMP TYPE [facility] II/UNS NOT LI STATED UNCNTRL 84977 ESOPHAGEAL 05-14-2014 ST. REFLUX [facility] LI V148 PERSONAL 05-14-2014 ST. HISTORY [facility] ALLERGY OTH LI SPEC MEDICINAL AGTS V1507 PERSONAL 05-14-2014 ST. HISTORY OF [facility] ALLERGY TO LI LATEX V1582 PERS HX 05-14-2014 ST. TOBACCO USE [facility] PRESENTING LI [place] 41848 DIAB 05-05-2014 FOOT W/NEURO SPECIALISTS MANIFESTS OF GREATER TYPE II/UNS NOT UNCNTRL 01305 UNSPECIFIED 05-05-2014 FOOT CELLULITIS SPECIALISTS AND OF GREATER ABSCESS OF TOE 7068 OTHER 05-05-2014 FOOT SPECIFIED SPECIALISTS DISEASE OF OF GREATER SEBACEOUS GLANDS 16437 ASTHMA, 04-18-2014 ST. UNSPECIFIED EV[facility] , LI UNSPECIFIED STATUS 84436 UNSPECIFIED 04-18-2014 ST. SLEEP [facility] APNEA LI V8543 BODY MASS 04-18-2014 ST. INDEX [facility] 50.0-59.9 LI ADULT 1120 CANDIDIASIS 04-12-2014 ST OF MOUTH [facility] PHYSICIANS V5889 ENCOUNTER 04-12-2014 ST FOR OTHER [facility] SPECIFIED PHYSICIANS AFTERCARE V8544 BODY MASS 04-12-2014 ST INDEX [facility] 60.0-69.9 PHYSICIANS ADULT 6202 OTHER AND 02-08-2014 RADIOLOGY UNSPECIFIED ASSOCIATES OVARIAN OF NOTH CYST 53050 DEHYDRATION 02-06-2014 [facility] 42230 LEUKOCYTOSI 02-06-2014 ST S [facility] UNSPECIFIED PHYSICIANS 5849 ACUTE 02-06-2014 ST KIDNEY [facility] FAILURE PHYSICIANS UNSPECIFIED 5939 UNSPECIFIED 02-06-2014 RADIOLOGY DISORDER ASSOCIATES OF KIDNEY OF [facility] AND URETER 71730 NAUSEA WITH 02-06-2014 ST VOMITING [facility] PHYSICIANS 86937 NAUSEA 02-06-2014 RADIOLOGY ALONE ASSOCIATES OF [facility] 77205 ABDOMINAL 02-06-2014 ST PAIN RIGHT [facility] UPPER PHYSICIANS QUADRANT 7891 HEPATOMEGAL 02-06-2014 RADIOLOGY Y ASSOCIATES OF [facility] 09288 SHORTNESS 01-16-2014 RADIOLOGY OF BREATH ASSOCIATES OF [facility] E55.9 Vitamin D 01-02-2014 deficiency, unspecified 37862 WHEEZING 01-02-2014 [facility] ANI 37758 OTHER 01-02-2014 [facility] ANI DYSPNEA AND RESPIRATORY ABNORMALITI ES 7945 NONSPECIFIC 12-26-2013 ABNORM [facility] RESULTS PHYSICIANS THYROID FUNCT STUDY 5259 UNSPECIFIED 11-27-2013 DISORDER [facility] TEETH&SUPPO PHYSICIANS RTING STRUCTURES 47239 OTHER 11-22-2013 EMERGENCY SPECIFIED CARE PHYS CARDIAC [facility] DYSRHYTHMIA S 4779 ALLERGIC 11-17-2013 RHINITIS [facility] CAUSE FT HU UNSPECIFIED 4660 ACUTE 11-13-2013 BRONCHITIS [facility] 10699 GENERALIZED 11-10-2013 TANGVALD IV ANXIETY THO DISORDER 0794 HUMAN 11-07-2013 PAPILLOMA [facility] VIRUS IN MED CTR UNDERBASTER CCE & UNS ST SITE 81632 MILD 11-07-2013 DYSPLASIA [facility] OF [facility] [address] 15142 PAP SMER 11-07-2013 CERV W/LW [facility] GRADE PHYSICIANS SQUAMOUS INTRAEPITH LES 2859 UNSPECIFIED 11-01-2013 ST ANEMIA [facility] [facility] 7867 ABNORMAL 11-01-2013 RADIOLOGY CHEST ASSOCIATES SOUNDS OF [facility] 5718 OTHER 10-21-2013 RADIOLOGY CHRONIC ASSOCIATES NONALCOHOLI OF [facility] C LIVER DISEASE 04651 ABDOMINAL 10-21-2013 RADIOLOGY PAIN, ASSOCIATES UNSPECIFIED OF [facility] SITE 88017 ABDOMINAL 10-20-2013 EMERGENCY PAIN OTHER CARE PHYS SPECIFIED [facility] SITE 1101 DERMATOPHYT 10-06-2013 FOOT OSIS OF SPECIALISTS NAIL OF GREATER 486 PNEUMONIA, 10-05-2013 ORGANISM [facility] UNSPECIFIED PHYSICIANS 31681 CHEST PAIN 09-25-2013 RADIOLOGY UNSPECIFIED ASSOCIATES OF [facility] 03719 DISPLCMT 09-22-2013 [facility] LUMBAR MAR 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 7233 CERVICOBRAC 09-22-2013 [facility] HIAL MAR SYNDROME 8398 CLOSED 09-22-2013 [facility] DISLOCATION MAR MULTIPLE&IL L-DEFINED SITES 8471 THORACIC 09-22-2013 [facility] SPRAIN AND MAR STRAIN 28862 UNSPECIFIED 09-17-2013 EMERGENCY INFECTIVE CARE PHYS OTITIS [facility] EXTERNA 462 ACUTE 09-17-2013 EMERGENCY PHARYNGITIS CARE PHYS [facility] 4871 INFLUENZA 09-14-2013 ST WITH OTHER [facility] RESPIRATORY PHYSICIANS MANIFESTATI ONS 7232 CERVICOCRAN 09-13-2013 [facility] IAL MAR SYNDROME 3899 UNSPECIFIED 09-07-2013 ST HEARING [facility] LOSS MED [facility] [facility] 470 DEVIATED 09-07-2013 ST NASAL [facility] SEPTUM [facility] V140 PERSONAL 09-07-2013 ST HISTORY OF [facility] ALLERGY TO MED CTR [facility] PENICILLIN ST 6261 SCANTY OR 09-03-2013 ST INFREQUENT [facility] MENSTRUATIO FT HU N 7842 SWELLING 08-29-2013 ST. MASS OR [facility] LUMP IN LI HEAD AND NECK V7231 ROUTINE 08-25-2013 ST GYNECOLOGIC [facility] AL PHYSICIANS EXAMINATION 42381 OBESITY 07-17-2013 ST HYPOVENTILA [facility] TION FT HU SYNDROME 46785 ASTHMA 07-17-2013 ST UNSPECIFIED [facility] WITH FT HU STATUS ASTHMATICUS 67560 ACUTE AND 07-17-2013 ST CHRONIC [facility] RESPIRATORY FT HU FAILURE 250.00 250.00 DIAB 01-03-[address] [facility] COMPL, TYPE Hospital II OR UNSPEC TYPE, NOT UNCNTRLD 401.9 401.9 01-03-2013 Luis Manuel HYPERTENSIO [facility] N NOS Hospital 493.90 493.90 01-03-2013 Luis Manuel ASTHMA, [facility] UNSPECIFIED Hospital 780.39 780.39 01-03-2013 Luis Manuel OTHER [facility] CONVULSIONS Hospital 847.0 847.0 01-03-2013 Luis Manuel SPRAIN OF [facility] NECK [facility] 883.0 883.0 OPEN 01-03-2013 Luis Manuel WOUND OF [facility] E849.0 E849.0 01-03-2013 Luis Manuel ACCIDENT IN [facility] E920.3 E920.3 01-03-2013 Luis Manuel KNIFE[facility] V14.0 V14.0 01-03-2013 Luis Manuel HX-[facility] IN ALLERGY Hospital 250.03 250.03 DIAB 11-28-[address] 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 E79.0 Hyperuricem ia without signs of inflammator y arthritis and tophaceous disease E87.5 Hyperkalemi a F31.0 Bipolar disorder, current episode hypomanic F32.9 Major depressive disorder, single episode, unspecified F33.1 Major depressive disorder, recurrent, moderate F41.1 Generalized anxiety disorder F41.9 Anxiety disorder, unspecified G43.009 Migraine without aura, not intractable , without status migrainosus G43.809 Other migraine, not intractable , without status migrainosus G43.A0 Cyclical vomiting, not intractable G89.29 Other chronic pain G89.4 Chronic pain syndrome I27.81 Cor pulmonale (chronic) J02.9 Acute pharyngitis , unspecified J44.0 Chronic obstructive pulmonary disease with acute lower respiratory infection K52.9 Noninfectiv e gastroenter itis and colitis, unspecified L03.90 CELLULITIS, UNSPECIFIED M1A.9XX1 Chronic gout, unspecified , with tophus (tophi) M25.571 Pain in right ankle and joints of right foot M79.604 Pain in right leg M79.671 Pain in right foot M79.672 Pain in left foot M79.89 Other specified soft tissue disorders M79.9 Soft tissue disorder, unspecified N91.2 Amenorrhea, unspecified R06.00 Dyspnea, unspecified R06.02 Shortness of breath R10.10 Upper abdominal pain, unspecified R10.11 RIGHT UPPER QUADRANT PAIN R10.30 Lower abdominal pain, unspecified R10.31 Right lower quadrant pain R10.84 Generalized abdominal pain R10.9 Unspecified abdominal pain R11.0 Nausea R11.2 Nausea with vomiting, unspecified R19.7 Diarrhea, unspecified R51 Headache R79.89 Other specified abnormal findings of blood chemistry S20.211A Contusion of right front wall of thorax, initial encounter S49.91XA Unspecified injury of right shoulder and upper arm, initial encounter S93.601A Unspecified sprain of right foot, initial encounter Z00.00 Encounter for general adult medical examination without abnormal findings Z23 Encounter for immunizatio n Z53.20 PROC/TRTMT NOT CRD OUT BEC PT DECISION FOR UNSP REASONS Z79.899 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 Allergies, Adverse Reactions, Alerts Type Drug Allergy Food Allergy Adverse Reaction to Substance Substance Reaction Severity PCN (penicillin) NA-NAUSEA/VOMITING Unknown Latex Unknown Unknown Flaxseed Oil Unknown Unknown NUTS (FOOD) THROAT SWELLING Unknown Clinical Alert Notifications Alert Asthma: absence of controller with ED/hospitalization Asthma: no influenza vaccine in the last 365 days Diabetes: no A1C in the last 6 months Diabetes: no eye exam in the last 365 days Diabetes: no influenza vaccine in the last 365 days Medications Na ND Rx Da Fi Fi Am Da Di Ph RX Ph St me C No te ll ll ou ys ag ar # ys at rm s nt no ma ic us Or Da si cy ia de te s n re d Sa 63 09 0 No li 80 -0 ne 70 8- Lo 10 20 ng Fl 07 13 er us 5 h Ac 10 ti ML ve Sy ri ng e SO 00 09 0 No KWAME 00 -0 -M 90 8- Lo ED 04 20 ng RO 72 13 er L 2 12 Ac 5 ti MG ve AL CE 62 09 0 No PH 75 -0 AL 60 8- Lo EX 29 20 ng IN 48 13 er 8 50 Ac 0 ti MG ve CA PS UL E SO 00 06 0 No DI 40 -1 UM 97 0- Lo 98 20 ng CH 30 13 er LO 9 RI Ac DE ti ve 0. 9% SO KWAME TI ON Sa 63 06 0 No li 80 -1 ne 70 0- Lo 10 20 ng Fl 07 13 er us 5 h Ac 10 ti ML ve Sy ri ng e ON 00 06 0 No DA 64 -1 NS 16 0- Lo ET 08 20 ng RO 02 13 er N 5 HC Ac L ti 4 ve MG /2 ML AL KE 00 06 0 No TO 40 -1 RO 93 0- Lo LA 79 20 ng C 50 13 er 30 1 Ac MG ti /M ve L AL NO 00 06 0 No VO 16 -1 LI 91 0- Lo N 83 20 ng R 31 13 er 10 1 0 Ac UN ti IT ve S/ ML AL CA 51 06 0 No OM 07 -1 ET 90 0- Lo BURKETT 89 20 ng ZI 52 13 er NE 0H Ac 25 ti MG ve TA BL ET TA KE AC 51 06 0 No ET 07 -1 AM 90 0- Lo IN 16 20 ng OP 19 13 er HE 9H N Ac W/ ti CO ve DE IN E #3 TA K SO 00 05 0 No DI 40 -1 UM 97 9- Lo 98 20 ng CH 30 13 er LO 9 RI Ac DE ti ve 0. 9% SO KWAME TI ON Sa 63 05 0 No li 80 -1 ne 70 9- Lo 10 20 ng Fl 07 13 er us 5 h Ac 10 ti ML ve Sy ri ng e NO 00 05 0 No VO 16 -1 LI 91 9- Lo N 83 20 ng R 31 13 er 10 1 0 Ac UN ti IT ve S/ ML AL ON 00 05 0 No DA 64 -1 NS 16 9- Lo ET 08 20 ng RO 02 13 er N 5 HC Ac L ti 4 ve MG /2 ML AL CA 51 05 0 No OM 07 -1 ET 90 9- Lo BURKETT 89 20 ng ZI 52 13 er NE 0H Ac 25 ti MG ve TA BL ET TA KE 00 12 01 00 12 3 KR 45 BA Ac 40 -1 -0 .0 OG 20 TE ti 60 6- 1- 00 ER 36 S ve 35 20 20 4 GW 70 08 09 PH EN 5 AR NA M N L- 34 5 53 12 01 00 30 10 KR 63 FA Ac 74 -1 -0 .0 OG 74 UL ti 60 0- 1- 00 ER 15 KN ve 13 20 20 7 ER 20 08 09 PH 5 AR DE M NN L- IS 34 R 5 63 12 01 00 30 8 KR 63 AN Ac 82 -1 -0 .0 OG 74 CI ti 40 8- 1- 00 ER 15 RO ve 05 20 20 5 64 08 09 PH DE 0 AR NN M IS L- 34 5 59 12 01 00 8. 20 KR 63 AN Ac 31 -1 -0 50 OG 74 CI ti 00 8- 1- 0 ER 15 RO ve 57 20 20 6 92 08 09 PH DE 0 AR NN M IS L- 34 5 CL 00 12 01 00 20 10 KR 63 AN Ac AR 05 -1 -0 .0 OG 74 CI ti IT 40 8- 1- 00 ER 15 RO ve HR 03 20 20 4 OM 72 08 09 PH DE YC 1 AR NN IN M IS L- 50 34 0 5 MG TA BL ET 00 12 12 00 12 3 KR 45 FA Ac 40 -0 -1 .0 OG 19 UL ti 61 1- 8- 00 ER 94 KN ve 72 20 20 4 ER 10 08 08 PH 5 AR DE M NN L- IS 34 R 5 CI 55 12 12 00 14 7 KR 63 FA Ac CA 11 -0 -1 .0 OG 70 UL ti OF 10 1- 8- 00 ER 77 KN ve LO 12 20 20 7 ER XA 70 08 08 PH CI 1 AR DE N M NN HC L- IS L 34 R 50 5 0 MG TA B Vital Signs 03-20-2013 23:46 Name Value Interpretat Reference Comment ion Range Body 97.3 [degF] Temperature BP 84 mm[Hg] Diastolic BP Systolic 155 mm[Hg] Heart 96 /min Rate/Pulse O2% 96 % Respiratory 18 /min Rate 03-20-2013 18:47 Name Value Interpretat Reference Comment ion Range Body 99.1 [degF] Temperature BP 80 mm[Hg] Diastolic BP Systolic 173 mm[Hg] Heart 124 /min Rate/Pulse O2% 97 % Respiratory 19 /min Rate 01-03-2013 22:50 Name Value Interpretat Reference Comment ion Range Body 98.8 [degF] Temperature BP 85 mm[Hg] Diastolic BP Systolic 139 mm[Hg] Heart 106 /min Rate/Pulse O2% 94 % Respiratory 18 /min Rate 12-20-2012 22:46 Name Value Interpretat Reference Comment ion Range Body 98.3 [degF] Temperature BP 48 mm[Hg] Diastolic BP Systolic 102 mm[Hg] Heart 95 /min Rate/Pulse O2% 95 % Respiratory 16 /min Rate 12-20-2012 21:47 Name Value Interpretat Reference Comment ion Range Body 98.5 [degF] Temperature 12-20-2012 21:15 Name Value Interpretat Reference Comment ion Range BP 58 mm[Hg] Diastolic BP Systolic 100 mm[Hg] Heart 100 /min Rate/Pulse O2% 96 % Respiratory 20 /min Rate 11-28-2012 05:48 Name Value Interpretat Reference Comment ion Range BP 64 mm[Hg] Diastolic BP Systolic 91 mm[Hg] Heart 110 /min Rate/Pulse O2% 95 % Respiratory 20 /min Rate 11-28-2012 04:23 Name Value Interpretat Reference Comment ion Range BP 55 mm[Hg] Diastolic BP Systolic 104 mm[Hg] Heart 108 /min Rate/Pulse O2% 95 % Respiratory 20 /min Rate Results Labs Lab Lab Date Result Refere Interp Status Commen Order Detail nces retati t Range on COMPREHENSIVE METABOLIC PANEL (03-20-2013 18:28) Glucose 487 74-106 complet 013 mg/dL ed Bld-mCn 18:28 c BUN 24 7-18 complet Bld-mCn 013 mg/dL ed c 18:28 Creat 1.5 0.6-1.0 complet SerPl-m 013 mg/dL ed Cnc 18:28 ESTIMAT 134 50-200 complet ED 013 ML/MIN ed CREATIN 18:28 INE CLEARAN CE GFR 41 59- complet (ESTIMA 013 ML/MIN ed ANDERS) 18:28 Sodium 135 136-145 complet SerPl-s 013 mmoL/L ed Cnc 18:28 Potassi 4.8 3.5-5.1 complet um 013 mmoL/L ed SerPl-s 18:28 Cnc Chlorid 96 98-107 complet e 013 mmoL/L ed SerPl-s 18:28 Cnc CO2 28 21.0-32 complet SerPl-s 013 mmoL/L .0 ed Cnc 18:28 Calcium 8.8 8.5-10. complet 013 mg/dL 1 ed SerPl-m 18:28 Cnc Prot 6.5 6.4-8.2 complet SerPl-m 013 gm/dL ed Cnc 18:28 Albumin 3.5 3.4-5.0 complet 013 gm/dL ed SerPl-m 18:28 Cnc Globuli 09-08-2 3.0 1.3-3.2 complet n 013 gm/dL ed Ser-mCn 18:28 c Albumin 03-20-2 1.2 UNK 1.1-1.8 complet /Glob 013 ed SerPl-m 18:28 Rto Bilirub 03-20-2 0.3 0.2-1.0 complet 013 mg/dL ed SerPl-m 18:28 Cnc AST 03-20-2 14 U/L 15-37 complet SerPl-c 013 ed Cnc 18:28 ALT 08-2 74 U/L 30-65 complet SerPl-c 013 ed Cnc 18:28 ALP 08-2 80 U/L 50-136 complet SerPl-c 013 ed Cnc 18:28 CBC with AUTO DIFF (03-20-2013 18:28) WBC # 08-2 24.7 4.8-10. High complet Bld 013 K/MM3 8 alert ed Auto 18:28 RBC # 08-2 4.80 4.2-5.4 complet Bld 013 M/mm3 ed Auto 18:28 Hgb -08-2 13.7 12.2-16 complet Bld-mCn 013 g/dL .2 ed c 18:28 Hct Fr 03-20-2 44.4 % 37.0-47 complet Bld 013 .0 ed 18:28 MCV RBC 08-2 92.5 fl 82.2-97 complet 013 .8 ed 18:28 MCH RBC 08-2 28.6 pg 27-31.2 complet Qn 013 ed Auto 18:28 MEAN 03-20-2 30.9 31.8-35 complet CORPUSC 013 g/dl .4 ed ULAR 18:28 HGB CONC RDW RBC 08-2 16.2 % 11.5-17 complet Auto 013 .5 ed 18:28 Platele 08-2 360 142-424 complet t Bld 013 K/mm3 ed Ql 18:28 Manual MEAN 08-2 7.6 fl 7.4-10. complet PLATELE 013 4 ed T 18:28 VOLUME Granulo 08-2 90.4 % 37.0-80 complet cytes 013 .0 ed Fr Bld 18:28 Auto LYMPH % 08-2 6.9 % 10-50.0 complet 013 ed 18:28 Monocyt 09-08-2 2.5 % 1.7-9.3 complet es Fr 013 ed Bld 18:28 Auto Eosinop 09-08-2 0.1 % 0.1-12. complet hil Fr 013 0 ed Bld 18:28 Auto Basophi 09-08-2 0.2 % 0.1-2.0 complet ls Fr 013 ed Bld 18:28 Auto Granulo 09-08-2 22.3 1.8-7.8 complet cytes # 013 K/mm3 ed Bld 18:28 Auto Lymphoc 09-08-2 1.7 0.7-4.5 complet ytes Fr 013 K/mm3 ed Bld 18:28 Auto Monocyt 09-08-2 0.6 0.1-1.0 complet es # 013 K/mm3 ed Bld 18:28 Auto Eosinop 09-08-2 0.0 0.0-0.4 complet hil # 013 K/mm3 ed Bld 18:28 Auto Basophi 09-08-2 0.0 0-0.2 complet ls # 013 K/MM3 ed Bld 18:28 Auto COMPREHENSIVE METABOLIC PANEL (12-20-2012 20:35) Glucose 501 74-106 High complet 013 mg/dL alert ed Bld-mCn 20:35 c BUN 15 7-18 complet Bld-mCn 013 mg/dL ed c 20:35 Creat 1.3 0.6-1.0 complet SerPl-m 013 mg/dL ed Cnc 20:35 ESTIMAT 158 50-200 complet ED 013 ML/MIN ed CREATIN 20:35 INE CLEARAN CE GFR 49 59- complet (ESTIMA 013 ML/MIN ed ANDERS) 20:35 Sodium 12-20- 131 136-145 complet SerPl-s 013 mmoL/L ed Cnc 20:35 Potassi 4.5 3.5-5.1 complet um 013 mmoL/L ed SerPl-s 20:35 Cnc Chlorid 93 98-107 complet e 013 mmoL/L ed SerPl-s 20:35 Cnc CO2 30 21.0-32 complet SerPl-s 013 mmoL/L .0 ed Cnc 20:35 Calcium 06-10-2 9.3 8.5-10. complet 013 mg/dL 1 ed SerPl-m 20:35 Cnc Prot 06-10-2 7.1 6.4-8.2 complet SerPl-m 013 gm/dL ed Cnc 20:35 Albumin 06-10-2 3.3 3.4-5.0 complet 013 gm/dL ed SerPl-m 20:35 Cnc Globuli 06-10-2 3.8 1.3-3.2 complet n 013 gm/dL ed Ser-mCn 20:35 c Albumin -10-2 0.9 UNK 1.1-1.8 complet /Glob 013 ed SerPl-m 20:35 Rto Bilirub -10-2 0.2 0.2-1.0 complet 013 mg/dL ed SerPl-m 20:35 Cnc AST -10-2 184 U/L 15-37 complet SerPl-c 013 ed Cnc 20:35 ALT 10-2 118 U/L 30-65 complet SerPl-c 013 ed Cnc 20:35 ALP 10-2 117 U/L 50-136 complet SerPl-c 013 ed Cnc 20:35 Amylase SerPl-cCnc (12-20-2012 20:35) Amylase 06-10-2 15 U/L 25-115 complet 013 ed SerPl-c 20:35 Cnc LIPASE (12-20-2012 20:35) LIPASE -10-2 228 U/L 73-393 complet 013 ed 20:35 CBC with AUTO DIFF (12-20-2012 20:35) WBC # 06-10-2 15.9 4.8-10. complet Bld 013 K/MM3 8 ed Auto 20:35 RBC # 06-10-2 5.17 4.2-5.4 complet Bld 013 M/mm3 ed Auto 20:35 Hgb -10-2 13.7 12.2-16 complet Bld-mCn 013 g/dL .2 ed c 20:35 Hct Fr 10-2 43.4 % 37.0-47 complet Bld 013 .0 ed 20:35 MCV RBC 06-10-2 84.0 fl 82.2-97 complet 013 .8 ed 20:35 MCH RBC -10-2 26.5 pg 27-31.2 complet Qn 013 ed Auto 20:35 MEAN 06-10-2 31.5 31.8-35 complet CORPUSC 013 g/dl .4 ed ULAR 20:35 HGB CONC RDW RBC 06-10-2 14.6 % 11.5-17 complet Auto 013 .5 ed 20:35 Platele 06-10-2 377 142-424 complet t Bld 013 K/mm3 ed Ql 20:35 Manual MEAN 06-10-2 7.9 fl 7.4-10. complet PLATELE 013 4 ed T 20:35 VOLUME Granulo 06-10-2 71.0 % 37.0-80 complet cytes 013 .0 ed Fr Bld 20:35 Auto LYMPH % 06-10-2 22.8 % 10-50.0 complet 013 ed 20:35 Monocyt 06-10-2 2.5 % 1.7-9.3 complet es Fr 013 ed Bld 20:35 Auto Eosinop 06-10-2 3.1 % 0.1-12. complet hil Fr 013 0 ed Bld 20:35 Auto Basophi 06-10-2 0.5 % 0.1-2.0 complet ls Fr 013 ed Bld 20:35 Auto Granulo 06-10-2 11.3 1.8-7.8 complet cytes # 013 K/mm3 ed Bld 20:35 Auto Lymphoc 06-10-2 3.6 0.7-4.5 complet ytes Fr 013 K/mm3 ed Bld 20:35 Auto Monocyt 06-10-2 0.4 0.1-1.0 complet es # 013 K/mm3 ed Bld 20:35 Auto Eosinop 06-10-2 0.5 0.0-0.4 complet hil # 013 K/mm3 ed Bld 20:35 Auto Basophi 06-10-2 0.1 0-0.2 complet ls # 013 K/MM3 ed Bld 20:35 Auto B-HCG Ur Ql (12-20-2012 20:25) B-HCG 06-10-2 NEGATIV NEG complet Ur Ql 013 E ed 20:25 URINALYSIS/COMPLETE (12-20-2012 20:25) URINE 06-10-2 YELLOW YELLOW complet COLOR 013 ed 20:25 URINE 06-10-2 CLEAR CLEAR complet APPEARA 013 ed NCE 20:25 URINE 06-10-2 3+ NEG complet GLUCOSE 013 ed - 20:25 DIPSTIC K URINE 06-10-2 NEGATIV NEG complet BILIRUB 013 E ed IN - 20:25 DIPSTIC K URINE 06-10-2 NEGATIV NEG complet KETONE 013 E mg/dL ed 20:25 URINE 06-10-2 Less 1.005-1 complet SPECIFI 013 than or .030 ed C 20:25 equal GRAVITY to 1.005 URINE 06-10-2 2+ NEG complet BLOOD 013 ed 20:25 URINE 06-10-2 6.0 UNK 5.0-8.5 complet PH 013 ed 20:25 URINE 06-10-2 NEGATIV NEG complet PROTEIN 013 E mg/dL ed - 20:25 DIPSTIC K URINE 06-10-2 0.2 NEG complet UROBILI 013 E.U./dL ed NOGEN - 20:25 DIPSTIC K URINE 06-10-2 NEGATIV NEG complet NITRATE 013 E ed - 20:25 DIPSTIC K URINE 06-10-2 NEGATIV NEG complet LEUK 013 E ed ESTERAS 20:25 E URINE 06-10-2 3-5 0 complet RBC 013 rbc/hpf ed 20:25 URINE 06-10-2 OCC O complet WBC 013 wbc/hpf ed 20:25 URINE 06-10-2 3-5 0-5 complet SQUAMOU 013 #/hpf ed S CELLS 20:25 COMPREHENSIVE METABOLIC PANEL (11-28-2012 03:45) Glucose 19-2 513 74-106 High complet 013 mg/dL alert ed Bld-mCn 03:45 c BUN 11-28-2 11 7-18 complet Bld-mCn 013 mg/dL ed c 03:45 Creat 11-28-2 1.3 0.6-1.0 complet SerPl-m 013 mg/dL ed Cnc 03:45 ESTIMAT 19-2 161 50-200 complet ED 013 ML/MIN ed CREATIN 03:45 INE CLEARAN CE GFR 11-28-2 49 59- complet (ESTIMA 013 ML/MIN ed ANDERS) 03:45 Sodium 11-28-2 128 136-145 complet SerPl-s 013 mmoL/L ed Cnc 03:45 Potassi 11-28-2 3.9 3.5-5.1 complet um 013 mmoL/L ed SerPl-s 03:45 Cnc Chlorid 19-2 93 98-107 complet e 013 mmoL/L ed SerPl-s 03:45 Cnc CO2 19-2 28 21.0-32 complet SerPl-s 013 mmoL/L .0 ed Cnc 03:45 Calcium 11-28-2 8.5 8.5-10. complet 013 mg/dL 1 ed SerPl-m 03:45 Cnc Prot -19-2 7.4 6.4-8.2 complet SerPl-m 013 gm/dL ed Cnc 03:45 Albumin 11-28-2 3.4 3.4-5.0 complet 013 gm/dL ed SerPl-m 03:45 Cnc Globuli 11-28-2 4.0 1.3-3.2 complet n 013 gm/dL ed Ser-mCn 03:45 c Albumin 11-28-2 0.9 UNK 1.1-1.8 complet /Glob 013 ed SerPl-m 03:45 Rto Bilirub 11-28-2 0.2 0.2-1.0 complet 013 mg/dL ed SerPl-m 03:45 Cnc AST 11-28-2 59 U/L 15-37 complet SerPl-c 013 ed Cnc 03:45 ALT 11-28-2 80 U/L 30-65 complet SerPl-c 013 ed Cnc 03:45 ALP 11-28-2 110 U/L 50-136 complet SerPl-c 013 ed Cnc 03:45 ACETONE, SERUM (11-28-2012 03:45) ACETONE 11-28-2 NONE NOT complet , SERUM 013 DETECTE DETECTD ed 03:45 D CBC with AUTO DIFF (11-28-2012 03:45) WBC # 19-2 16.3 4.8-10. complet Bld 013 K/MM3 8 ed Auto 03:45 RBC # 11-28-2 5.14 4.2-5.4 complet Bld 013 M/mm3 ed Auto 03:45 Hgb 11-28-2 13.4 12.2-16 complet Bld-mCn 013 g/dL .2 ed c 03:45 Hct Fr 43.5 % 37.0-47 complet Bld 013 .0 ed 03:45 MCV RBC 11-28-2 84.6 fl 82.2-97 complet 013 .8 ed 03:45 MCH RBC 05-19-2 26.2 pg 27-31.2 complet Qn 013 ed Auto 03:45 MEAN 05-19-2 30.9 31.8-35 complet CORPUSC 013 g/dl .4 ed ULAR 03:45 HGB CONC RDW RBC 05-19-2 14.5 % 11.5-17 complet Auto 013 .5 ed 03:45 Platele 05-19-2 419 142-424 complet t Bld 013 K/mm3 ed Ql 03:45 Manual MEAN 05-19-2 7.6 fl 7.4-10. complet PLATELE 013 4 ed T 03:45 VOLUME Granulo 05-19-2 67.4 % 37.0-80 complet cytes 013 .0 ed Fr Bld 03:45 Auto LYMPH % 05-19-2 25.6 % 10-50.0 complet 013 ed 03:45 Monocyt 05-19-2 3.1 % 1.7-9.3 complet es Fr 013 ed Bld 03:45 Auto Eosinop 05-19-2 3.5 % 0.1-12. complet hil Fr 013 0 ed Bld 03:45 Auto Basophi 05-19-2 0.5 % 0.1-2.0 complet ls Fr 013 ed Bld 03:45 Auto Granulo 05-19-2 11.0 1.8-7.8 complet cytes # 013 K/mm3 ed Bld 03:45 Auto Lymphoc 05-19-2 4.2 0.7-4.5 complet ytes Fr 013 K/mm3 ed Bld 03:45 Auto Monocyt 05-19-2 0.5 0.1-1.0 complet es # 013 K/mm3 ed Bld 03:45 Auto Eosinop 05-19-2 0.6 0.0-0.4 complet hil # 013 K/mm3 ed Bld 03:45 Auto Basophi 05-19-2 0.1 0-0.2 complet ls # 013 K/MM3 ed Bld 03:45 Auto B-HCG Ur Ql (11-28-2012 03:40) B-HCG 05-19-2 NEGATIV NEG complet Ur Ql 013 E ed 03:40 URINALYSIS/COMPLETE (11-28-2012 03:40) URINE 05-19-2 YELLOW YELLOW complet COLOR 013 ed 03:40 URINE 05-19-2 CLEAR CLEAR complet APPEARA 013 ed NCE 03:40 URINE 05-19-2 3+ NEG complet GLUCOSE 013 ed - 03:40 DIPSTIC K URINE 05-19-2 NEGATIV NEG complet BILIRUB 013 E ed IN - 03:40 DIPSTIC K URINE 05-19-2 NEGATIV NEG complet KETONE 013 E mg/dL ed 03:40 URINE 05-19-2 1.010 1.005-1 complet SPECIFI 013 UNK .030 ed C 03:40 GRAVITY URINE 05-19-2 NEGATIV NEG complet BLOOD 013 E ed 03:40 URINE 05-19-2 6.0 UNK 5.0-8.5 complet PH 013 ed 03:40 URINE 05-19-2 NEGATIV NEG complet PROTEIN 013 E mg/dL ed - 03:40 DIPSTIC K URINE 05-19-2 0.2 NEG complet UROBILI 013 E.U./dL ed NOGEN - 03:40 DIPSTIC K URINE 05-19-2 NEGATIV NEG complet NITRATE 013 E ed - 03:40 DIPSTIC K URINE 05-19-2 NEGATIV NEG complet LEUK 013 E ed ESTERAS 03:40 E URINE 05-19-2 OCC O complet WBC 013 wbc/hpf ed 03:40 URINE 05-19-2 5-10 0-5 complet SQUAMOU 013 #/hpf ed S CELLS 03:40 Procedures Procedure DOS Code Location Performer Comment INSERTION [id number] [facility] INFUSION 7 [place] DEVC JULIO KIM SUPERIOR VENA CAVA PERQ THERAPEUT [address]56 [facility] IC 7 [facility] PROPHYLAC TIC/DX HEALTHCAR HEALTHCAR INJECTION E EDGE E EDGE SUBQ/IM THERAPEUT [address]34[address] [facility]. IC 7 [facility] PROPHYLAC LI LI TIC/DX INJECTION SUBQ/[place] [address] [facility] LIPASE [address] [place] [address] [facility] LI LI BASIC [address] [facility] METABOLIC [address] [place] [address] PANEL LI LI CALCIUM TOTAL BLOOD 13360 [facility]. COUNT [address] [place] [address] COMPLETE LI LI AUTO&AUTO DIFRNTL WBC HEPATIC 54191 [facility]. FUNCTION 7 [place] PANEL LI LI COLLECTIO 50866 [facility]. N VENOUS 7 [place] BLOOD LI LI VENIPUNCT URE COLLECTIO 25601 [facility] N VENOUS 7 [place] [place] BLOOD VENIPUNCT HEALTHCAR HEALTHCAR URE E EDGE E EDGE LIPID 97569 [facility] PANEL 7 [place] HEALTHCAR HEALTHCAR E EDGE E EDGE MRI BRAIN 09285 [facility] BRAIN 7 [facility] STEM W/O W/CONTRAS HEALTHCAR HEALTHCAR [place] [address] [facility] GLYCATED 7 [facility] PROTEIN HEALTHCAR HEALTHCAR E EDGE E EDGE 25 15905 [facility] HYDROXY [facility] INCLUDES FRACTIONS HEALTHCAR HEALTHCAR IF E VAL E VAL PERFORMED THERAPEUT 08854 [facility] IC 7 [place] [place] PROPHYLAC TIC/DX HEALTHCAR HEALTHCAR INJECTION E EDGE E EDGE SUBQ/IM HEMOGLOBI 86542 [facility] N 7 [place] GLYCOSYLA ANDERS A1C HEALTHCAR HEALTHCAR E EDGE E EDGE GONADOTRO 10258 [facility] PIN 7 [facility] [place] [address] [facility] AMYLASE 7 [facility] INC THERAPEUT 02839 [facility] IC 7 [facility] PROPHYLAC INC INC TIC/DX INJECTION SUBQ/IM INJECTION J0595 [facility] 7 [facility] BUTORPHAN INC INC OL TARTRATE [address] [place] [address] [facility] LIPASE 7 [place] [address] [facility] ABDOMEN & 7 [facility] PELVIS INC INC W/O CONTRAST MATERIAL URNLS DIP 87680 [facility] STICK/TAB INC INC LET REAGENT AUTO MICROSCOP Y BLOOD 07630 [facility] COUNT 7 [facility] COMPLETE INC INC AUTO&AUTO DIFRNTL WBC COMPREHEN 62414 [facility] SIVE 7 [facility] METABOLIC INC INC PANEL THERAPEUT [address] IC 7 [facility] PROPHYLAC TIC/DX HEALTHCAR HEALTHCAR INJECTION E EDGE E EDGE SUBQ/IM RADEX [address] [facility] 7 [place] COMPLETE IL LI MINIMUM [address] FOOT 7 [facility] COMPLETE LI LI MINIMUM 3 VIEWS GONADOTRO 32467 [facility] PIN 7 [facility] CHORIONIC INC INC QUALITATI VE INJECTION J2405 [facility] ISSA 7 [facility] ONDANSETR INC INC ON HCL PER [address] [place] [address] [facility] LACTATE 7 [facility] INC INC URNLS DIP 53275 [facility] ISSA 7 [facility] STICK/TAB INC INC [place] [address] [facility] LIPASE 7 [facility] INC INC THER 94452 [facility] PROPH/DX 7 [facility] NJX EA INC INC SEQL IV PUSH SBST/DRUG FAC BLOOD 83521 [facility] COUNT 7 [facility] COMPLETE INC INC AUTO&[place] [address] [facility] ISS[facility] INFUSION 7 [facility] THERAPY/P INC INC ROPHYLAXI S /DX 1ST TO 1 HR THERAPEUT 77765 [facility] IC 7 [facility] INJECTION INC INC IV PUSH EACH NEW DRUG COLLECTIO 09976 [facility] N VENOUS 7 [facility] BLOOD INC INC VENIPUNCT URE COMPREHEN 61919 [facility] SIVE 7 [facility] METABOLIC INC INC PANEL CULTURE 64284 [facility] BACTERIAL 7 [facility] BLOOD INC INC AEROBIC W/ID ISOLATES PRESSURIZ [address] ED/NONPRE 6 [facility] SSURIZED MED [facility] MED CTR INHALATIO [facility] N TREATMENT CPAP [address] VENTILATI 6 [facility] ON CPAP MED CTR MED CTR INITIATIO UNDER[address] [facility] [address] N&[facility] [facility] OBSERVATI 6 [facility] ON MED CTR MED CTR SERVICE UNDERBASTER [facility] [address] ST PER HOUR THERAPEUT [address] IC 6 [facility] PROPHYLAC MED CTR MED CTR TIC/DX UNDERBASTER [facility] ST INJECTION SUBQ/IM NONINVASI [address] VE 6 [facility] EAR/PULSE MED CTR MED CTR OXIMETRY [facility]ERBASTER [facility] ST MULTIPLE DETER GLUC BLD [address] GLUC MNTR 6 [facility] DEV MED CTR MED CTR CLEARED [facility] [address] ST FDA SPEC HOME USE GLUC BLD [address] GLUC MNTR 6 [facility] DEV MED CTR MED CTR CLEARED UNDER[facility] ST UND[address] ST FDA SPEC HOME USE NONINVASI [address] ST ST VE 6 [facility] EAR/PULSE MED CTR MED CTR OXIMETRY UNDERBASTER ST UND[address]STER ST MULTIPLE DETER THERAPEUT [address] IC 6 [facility] PROPHYLAC MED CTR MED CTR TIC/DX UNDERBASTER [facility] ST INJECTION SUBQ/IM THER [address] PROPH/DX 6 [facility] NJX EA MED CTR MED CTR SEQL IV UNDERBASTER [facility] ST PUSH SBST/DRUG [facility] G[address] ST ST OBSERVATI 6 [facility] ON MED [facility] MED [facility] SERVICE [address] [facility] [address] ST PER HOUR CPAP [address] VENTILATI 6 [facility] ON CPAP MED CTR MED CTR INITIATIO UNDERBASTER ST UND[address]STER ST N&MGMT PRESSURIZ [address] ED/NONPRE 6 [facility] SSURIZED MED CTR MED CTR INHALATIO UNDERBASTER ST [facility] N TREATMENT CPAP [address] VENTILATI 6 [facility] ON CPAP MED CTR MED CTR INITIATIO UNDER[facility] [facility] UND[address] ST N&MGMT PRESSURIZ [address] ED/NONPRE 6 [facility] SSURIZED MED CTR MED CTR INHALATIO [facility] N T[facility]MENT [facility] G[address] ST ST OBSERVATI 6 [facility] ON MED CTR MED CTR SERVICE UNDERBASTER ST UND[address] PER HOUR THER [address] PROPH/DX 6 [facility] NJX EA MED CTR MED CTR SEQL IV UNDERBASTER [facility] UND[address] ST PUSH SBST/DRUG FAC THERAPEUT [address] IC 6 [facility] PROPHYLAC MED CTR MED CTR TIC/DX UNDERBASTER ST UND[address] ST INJECTION SUBQ/IM GLUC BLD [address] GLUC MNTR 6 [facility] DEV MED CTR MED CTR CLEARED UNDERBASTER [facility] [address] ST FDA SPEC HOME USE [address] HYDROXY 6 [facility] INCLUDES MED CTR MED CTR FRACTIONS UNDERBASTER ST UND[address] ST IF PERFORMED NONINVASI [address] ST ST VE 6 [facility] EAR/PULSE MED CTR MED CTR OXIMETRY UNDERBASTER ST [address] ST MULTIPLE DETER NONINVASI [address] VE 6 [facility] EAR/PULSE MED CTR MED CTR OXIMETRY UNDERBASTER ST UND[address] ST MULTIPLE DETER THER [address] PROPH/DX 6 [facility] NJX IV MED CTR MED CTR PUSH UNDERBASTER ST UNDER[facility]STER ST SINGLE/1S T SBST/DRUG GONADOTRO [address] PIN 6 [facility] CHORIONIC MED CTR MED CTR UNDERBASTER ST UND[address] ST QUALITATI VE RADIOLOGI [address] C EXAM 6 [facility] CHEST 2 MED CTR MED CTR VIEWS [facility] [facility] [address] ST FRONTAL&L ATERAL GLUC BLD [address] GLUC MNTR 6 [facility] DEV MED CTR MED CTR CLEARED UNDERBASTER ST [facility] [facility] FDA SPEC HOME USE [place] [address] ROUTINE 6 [facility] ECG MED CTR MED CTR W/LEAST UNDERBASTER ST UNDERBASTER ST 12 LDS TRCG ONLY W/O I&R THER [address] PROPH/DX 6 [facility] NJX EA MED CTR MED CTR SEQL IV UNDERBASTER ST UND[address] ST PUSH SBST/DRUG FAC BASIC [address] METABOLIC 6 [facility] PANEL MED CTR MED CTR CALCIUM [facility] [facility] OBSERVATI 6 [facility] ON MED CTR MED CTR SERVICE UNDERBASTER ST UND[address] ST PER HOUR THERAPEUT [address] IC 6 [facility] INJECTION MED CTR MED CTR IV PUSH UNDERBASTER ST UNDERBASTER ST EACH NEW DRUG PRESSURIZ [address] ED/NONPRE 6 [facility] SSURIZED MED CTR MED CTR INHALATIO UNDERBASTER ST UND[address]STER ST N TREATMENT BLOOD [address] COUNT 6 [facility] COMPLETE MED CTR MED CTR AUTO&AUTO UNDERBASTER ST UNDER[address]STER ST DIFRNTL WBC COLLECTIO [address] N VENOUS 6 [facility] BLOOD [facility] MED CTR VENIPUNCT UNDERBASTER ST UNDERBASTER ST URE DRUG [address] SCREEN 6 [facility] QUANTITAT [facility] MED CTR RACHEL UNDERBASTER ST UNDERBASTER ST THEOPHYLL INE OBSERVATI 67398 ST BANKERS ON CARE 6 [facility] B[facility] DISCHARGE PHYSICIAN MANAGEMEN S T SBSQ [address] [facility] BANKERS OBSERVATI 6 [facility] BRA ON CARE/DAY PHYSICIAN 25 S MINUTES INITIAL [address] [facility] OBSERVATI 6 [facility] BRA ON CARE/DAY PHYSIC[place] [address] [place] [address] HEAD/BRAI 6 [facility] N W/O & JULIO KIM W/CONTRAS T MATERIAL CREATININ [address] E BLOOD 6 [facility] JULIO JULIO RADEX [address] FOOT 5 [facility] COMPLETE [facility] MED CTR MINIMUM [address] VIEWS SBSQ 13991 [facility] 5 [place] [facility] 35 MEDICAL MEDICAL MINUTES INITIAL 99178 [facility] INPATIENT 5 [facility] CONSULT PULMONARY NEW/ESTAB ASSOCIAT PT 80 MIN FULL FACE A7030 CAPRICESEGUN [facility] MASK 5 HOSP HOSP USED EQUIP EQUIP W/POS ARWAY PRESS DEVICE EA FILTER A7038 [facility] DISPBL 5 HOSP HOSP USED EQUIP EQUIP W/POS ARWAY PRESSURE DEVICE TUBING A7037 RAFITA [facility] USED WITH 5 HOSP HOSP POSITIVE EQUIP EQUIP AIRWAY PRESSURE DEVICE FACE MASK A7031 [facility]S [facility] 5 HOSP HOSP INTERFACE EQUIP EQUIP REPLCMT FULL FACE MASK EA PRESSURIZ [address] ED/NONPRE 5 EVENSRUBEN HORNER SSURIZED INHALATIO HEALTHCAR HEALTHCAR N E EDGE E EDGE TREATMENT O2 CONC 1 E1390 PATIENT PATIENT DEL PORT 5 AIDS INC AIDS INC 85%/>02 CONC AT PRSC FLW RATE O2 CONC 1 E1390 PATIENT PATIENT DEL PORT 5 AIDS INC AIDS INC 85%/>02 CONC AT PRSC FLW RATE FACE MASK A7031 ROTHSEGUN ROTHERTS 4 HOSP HOSP INTERFACE EQUIP EQUIP REPLCMT FULL FACE MASK EA TUBING A7037 RAFITA VASQUESERTS USED WITH 4 HOSP HOSP POSITIVE EQUIP EQUIP AIRWAY PRESSURE DEVICE FILTER A7038 [facility] DISPBL 4 HOSP HOSP USED EQUIP EQUIP W/POS ARWAY PRESSURE DEVICE FILTER A7039 [facility]ITA [facility] NON 4 HOSP HOSP DISPBL EQUIP EQUIP USED W/POS ARWAY PRESS DEVICE FULL FACE A7030 RAFITA [facility] MASK 4 HOSP HOSP USED EQUIP EQUIP W/POS ARWAY PRESS DEVICE EA HEADGEAR A7035 RAFITA [facility] USED 4 HOSP HOSP W/POSITIV EQUIP EQUIP E AIRWAY PRESSURE DEVICE O2 CONC 1 E1390 PATIENT PATIENT DEL PORT 4 AIDS INC AIDS INC 85%/>02 CONC AT PRSC FLW RATE O2 CONC 1 E1390 PATIENT PATIENT DEL PORT 4 AIDS INC AIDS INC 85%/>02 [place] [address] [facility] INFUSION 4 [facility] HYDRATION LI LI EACH ADDITIONA L HOUR GLUC BLD [address] [facility]. GLUC MNTR 4 [facility] DEV LI LI CLEARED FDA SPEC HOME USE COLLECTIO [address] [facility] [address] N VENOUS 4 [facility] BLOOD LI LI VENIPUNCT URE COMPREHEN [address] SIVE 4 [facility] METABOLIC LI LI PANEL O2 CONC 1 E1390 PATIENT PATIENT DEL PORT 4 AIDS INC AIDS INC 85%/>02 CONC AT PRSC FLW RATE RADEX 96269 [facility] ANKLE 4 [facility] COMPLETE LI LI MINIMUM 3 VIEWS O2 CONC 1 E1390 PATIENT PATIENT DEL PORT 4 AIDS INC AIDS INC 85%/>02 CONC AT PRSC FLW RATE INITIAL 25066 [facility] INPATIENT 4 [facility] ELIGIO CONSULT NEW/ESTAB PHYSICIAN PT 80 S MIN BASIC 45061 [facility] METABOLIC 4 [facility] PANEL MED CTR MED CTR CALCIUM UNDERBASTER ST UNDERBASTER [facility] [address] [place] DISCHARGE 4 [facility] DAY MANAGEMEN PHYSICIAN T 30 S MIN/< HOSPITAL [address] ST DISCHARGE 4 [facility] DAY MANAGEMEN PHYSICIAN PHYSICIAN T 30 S S MIN/< [place] PELVIC 83331 RADIOLOGY DEVIN 4 III LADONNA NONOBSTET ASSOCIATE SHAUN [place] [address] RADIOLOGY DEVIN TRANSVAGI 4 III LADONNA NAL ASSOCIATE S OF NOT HEPATOBIL 98305 RADIOLOGY ROBER IARY SYST 4 TONY IMAGING [place]OCI[place] [address] RADIOLOGY ADALI ABDOMINAL 4 BRA REAL ASSOCIATE TIME S [place] NOTH W/[place] [address] RADIOLOGY ROBER RETROPERI 4 TONY TONEAL ASSOCIATE REAL TIME S OF NOTH W/IMAGE COMPLETE INITIAL 09194 [facility] IN[facility] 4 [facility] PHI CONSULT NEW/ESTAB PHYSICIAN PT 80 S MIN RADIOLOGI 30229 RADIOLOG[facility] [place] C EXAM 4 GAR CHEST 2 ASSOCIATE VIEWS S OF NOTH FRONTAL&L ATERAL EXCISION 70639 FOOT TIRONE NAIL 4 SPECIALIS LUIS ANGEL MATRIX TS OF PERMANENT GREATER REMOVAL RADIOLOGI 44421 DEBORA DEBORA C 4 ANI ANI EXAMINATI ON CHEST SINGLE VIEW FRONTAL ECG 36560 ABDALLAH ABDALLAH ROUTINE 4 ELIGIO ELIGIO ECG W/LEAST 12 LDS I&R ONLY GLUC BLD 73607 [facility] GLUC MNTR 4 [facility] GIANNA DEV CLEARED PHYSICIAN FDA SPEC S HOME USE EXCISION [id number] FOOT TIRONE NAIL 4 SPECIALIS LUIS ANGEL MATRIX TS OF PERMANENT GREATER REMOVAL MEDICAL [address] [facility] NUTRITION 4 [facility] GIANNA THERAPY GRP2/ PHYSICIAN INDIV EA S 30 MD SBSQ [address] CARE/DAY 25 PHYSICIAN MINUTES S INITIAL 95317 [facility] 4 [place] CARE/DAY 70 PHYSICIAN MINUTES S RADIOLOGI 97042 RADIOLOGY WALESKA C EXAM 4 SIMEON CHEST 2 ASSOCIATE VIEWS S OF NOT FRONTAL&L ATERAL POLYSOM 75487 RIDDLE 6/>YRS 4 [facility] JAM SLEEP MED CTR W/CPAP 4/> ADDL CHUY ATTND ALLERGEN [address] SPECIFIC 4 [facility] IGE FT FT KARLA/SEMI [facility] KARLA EA ALLERGEN COLLECTIO [address] N VENOUS 4 [facility] BLOOD FT FT VENIPUNCT [facility] URE ANTIBODY [address] REYNALDO 4 [facility] FT FT [facility] COLLECTIO 08002 ONCOLOGY TERESITA CHR N VENOUS 4 HEMATOLOG BLOOD Y CARE VENIPUNCT INC URE BLOOD 63790 ONCOLOGY TERESITA CHR COUNT 4 HEMATOLOG COMPLETE Y CARE AUTO&AUTO INC DIFRNTL WBC RADIOLOGI 85635 RADIOLOGY GARCIA BYR C EXAM 4 CHEST 2 ASSOCIATE VIEWS S OF NOTH FRONTAL&L ATERAL ECG 85121 ST HULLER ROUTINE 4 [facility] RAL ECG MED CTR W/LEAST 12 LDS I&R ONLY COLPOSCOP 47031 ST [place] Y CERVIX 4 [facility] AMA BX CERVIX & [place] [address] [place] BRIDGES SURG 4 [facility] ABHINAV PATHOLOGY MED CTR GROSS&ZAYRA ROSCOPIC EXAM URINE 42423 ST VON HO[place] 4 [facility] AMA TEST VISUAL PHYSICIAN COLOR S CMPRSN METHS BONE 17620 RADIOLOGY SCHMITTER MARROW 4 [place] BIOPSY ASSOCIATE NEEDLE/TR S OF NOT OCAR BLOOD 12349 ST KWAME DAKSHA SMEAR 4 [facility] PERIPHERA MED CTR L INTERP PHYS W/WRIT REPORT BONE [address] MARROW 4 [facility] SMEAR MED CTR MED CTR INTERPRET UNDERBASTER ST UNDERBASTER ST ATION INJECTION J3010 ST ST FENTANYL 4 [facility] EVENS CITRATE MED CTR MED CTR 0.[address] [address] RADIOLOGY SCHMITTER GUIDANCE 4 [place] NEEDLE ASSOCIATE PLACEMENT S OF NOTH MODERATE 01708 RADIOLOGY SCHMITTER SEDATJ 4 [place] SAME ASSOCIATE PHYS/QHP S OF NOTH 5/>YRS INIT [address] ANALYZE 4 [facility] MED CTR MED CTR CELLS UNDERBASTER ST UNDERBASTER ST BLOOD [address] COUNT 4 [facility] HORNER COMPLETE MED CTR MED CTR AUTO&AUTO UNDERBASTER ST UNDERBASTER ST DIFRNTL WBC GLUC BLD [address] GLUC MNTR 4 [facility] EVENS DEV MED CTR MED CTR CLEARED UNDERBASTER ST UNDERBASTER ST FDA SPEC HOME USE RADIOLOGI 40507 RADIOLOGY SCHMITTER C EXAM 4 [place]AN CHEST 2 ASSOCIATE VIEWS S OF NOTH FRONTAL&[place] [address] SURG 4 [facility] HORNER PATHOLOGY MED CTR MED CTR UNDERBASTER ST UNDERBASTER ST GROSS&ZAYRA ROSCOPIC EXAM DECALCIFI [address] CATION 4 [facility] EVENS PROCEDURE MED CTR MED CTR UNDERBASTER ST UNDERBASTER ST IMHISTOCH [address] EM/CYTCHM 4 [facility] EVENS 1ST MED CTR MED CTR ANTIBODY UNDERBASTER ST UNDERBASTER ST STAIN PROCEDURE FLOW [address] CYTOMETRY 4 [facility] EVENS CELL MED CTR MED CTR SURF UNDERBASTER ST UNDERBASTER ST MARKER TECHL ONLY EA BN MARROW G0364 RADIOLOGY SCHMITTER ASPIR 4 [place] PRFRM ASSOCIATE W/BX SAME S OF NOTH INCI SAME DOS FLOW [address] CYTOMETRY 4 [facility] EVENS CELL MED CTR MED CTR SURF UNDERBASTER ST UNDERBASTER ST MARKER TECHL ONLY 1ST TISS CUL [address] HAKAN 4 [facility] EVENS DISORDERS MED CTR MED CTR BONE UNDERBASTER ST UNDERBASTER ST MARROW BLOOD CELLS PRESSURIZ [address] ED/NONPRE 4 [facility] SSURIZED MED CTR MED CTR INHALATIO UNDERBASTER ST UNDERBASTER ST N TREATMENT FLOW 09869 ST KWAME DAKSHA CYTOMETRY 4 [facility] MED CTR INTERPRET ATION 16/> MARKERS SPCL STN [address] 2 I&R 4 [facility] EXCPT MED CTR MED CTR MICROORG/ UNDERBASTER ST UNDERBASTER ST ENZYME/IM CYT INJECTION J2270 ST ST MORPHINE 4 [facility] SULFATE MED CTR MED CTR UP TO [address] MG INJECTION J2250 ST ST 4 [facility]ENS EV[facility] MIDAZOLAM MED CTR MED CTR HCL PER UNDERBASTER ST UNDERBASTER ST 1 MG BLD GLU A4253 LIBERATOR LIBERATOR TEST/REAG 4 MEDICAL MEDICAL T STRIPS SUPPLY SUPPLY HOME BLD INC INC GLU MON-[address] RIDDLE 6/>YRS 4 [facility] JAM SLEEP 4/> MED CTR ADDL CHUY ATTND BLOOD 04646 ONCOLOGY ONCOLOGY COUNT 4 HEMATOLOG HEMATOLOG COMPLETE Y CARE Y CARE AUTO&[place] [address] RADIOLOGY BRANDSER ABDOMEN & 4 ESTHER PELVIS ASSOCIATE W/O S OF NOTH CONTRAST MATERIAL PURE TONE 53879 RUBINSTEI RUBINSTEI 4 N GULSHAN N GULSHAN AUDIOMETR Y AIR & BONE TYMPANOME 54358 SAWYERTEShun JACQUESTEShun TRY 4 N GULSHAN N GULSHAN EXCISION 68406 FOOT TIRONE NAIL 4 SPECIALIS LUIS ANGEL MATRIX TS OF PERMANENT GREATER REMOVAL SBSQ [address] IRF CARE/DAY 25 PHYSICIAN MINUTES S HOSPITAL [address] MANAGEMEN PHYSICIAN T 30 S MIN/< SBSQ [address] IRF CARE/DAY 35 PHYSICIAN MINUTES S SBSQ [address] CARE/DAY 25 PHYSICIAN MINUTES S SBSQ [address] CARE/DAY 25 PHYSICIAN MINUTES S SBSQ [address] IRF CARE/DAY 35 PHYSICIAN MINUTES S SBSQ [address] IRF CARE/DAY 35 PHYSICIAN MINUTES S SBSQ [address] IRF CARE/DAY 35 PHYSICIAN MINUTES S SBSQ [address] BREANNA CARE/DAY 25 PHYSICIAN MINUTES S SBSQ [address] BREANNA CARE/DAY 25 PHYSICIAN MINUTES S SBSQ [address] SOP CARE/DAY 25 PHYSICIAN MINUTES S INITIAL 99766 [facility] INPATIENT 4 [facility] BREANNA CONSULT NEW/ESTAB PHYSICIAN PT 80 S MIN INITIAL 34935 ONCOLOGY TERESITA CHR INPATIENT 4 HEMATOLOG CONSULT Y CARE NEW/ESTAB INC PT 80 MIN SBSQ [address] SOP CARE/DAY 25 PHYSICIAN MINUTES S INITIAL [address] CARE/DAY 70 PHYSICIAN MINUTES S CRITICAL 29797 EMERGENCY SELWYN CARE 4 CARE CHRIS ILL/INJUR PHYS ED [facility] PATIENT INIT 30-74 MIN RADIOLOGI 15184 RADIOLOGY TEMPLETON C 4 JAM EXAMINATI ASSOCIATE ON CHEST S OF NOT SINGLE VIEW FRONTAL CHIROPRAC 57753 SPERBECK SPERBECK TIC 4 MAR MAR MANIPULAT RACHEL [place] SPINAL 3-[address] [facility] [address] D[facility]AS JAYESH DISCHARGE 4 EVENS DAY MANAGEMEN PHYSICIAN T 30 S MIN/< CHIROPRAC 99310 SPERBECK SPERBECK TIC 4 MAR MAR MANIPLTV TX EXTRASPIN AL 1/> REGION SBSQ [address] ST DOUGLAS [facility] 4 [facility]/DAY 25 PHYSICIAN MINUTES S RADIOLOGI 83704 RADIOLOGY GARCIA BYR C EXAM 4 CHEST 2 ASSOCIATE VIEWS S OF NOT FRONTAL&L ATERAL CHIROPRAC 47299 SPERBECK SPERBECK TIC 4 MAR MAR MANIPULAT RACHEL TX SPINAL 3-4 [facility] CHIROPRAC 62055 SPERBECK SPERBECK TIC 4 MAR MAR MANIPLTV TX EXTRASPIN AL 1/> [facility] IAADIADOO 98274 ST DOUGLAS JAYESH 4 [facility]ENS INFLUENZA PHYSICIAN S IAADIADOO 47937 ST DOUGLAS JAYESH 4 EVENS STREPTOCO CCUS PHYSICIAN GROUP A S CHIROPRAC 83163 SPERBECK SPERBECK TIC 4 MAR MAR MANIPLTV TX EXTRASPIN AL 1/> REGION CHIROPRAC 20677 SPERBECK SPERBECK TIC 4 MAR MAR MANIPULAT RACHEL [place] SPINAL 3-4 [facility] EXCISION 96637 FOOT TIRONE NAIL 4 SPECIALIS LUIS ANGEL MATRIX TS OF PERMANENT GREATER REMOVAL INJECTION J2250 ST ST 4 [facility] MIDAZOLAM MED CTR MED CTR HCL PER UNDERBASTER ST UNDERBASTER ST [address] 4 [facility] EVENS ACETAMINO MED CTR MED CTR PHEN [address] MG PRESSURIZ [address] ED/NONPRE 4 [facility] SSURIZED MED CTR MED CTR INHALATIO UNDERBASTER ST UNDERBASTER ST N TREATMENT ANES [address] XTRNL MID 4 [facility] EVENS & INNER MED CTR MED CTR EAR W/BX UNDERBASTER ST UNDERBASTER ST TYMPANOTO MY TYMPANOST [address] ELISHA 4 [facility] GENERAL MED CTR MED CTR ANESTHESI UNDERBASTER ST UNDERBASTER ST A URINE [address] 4 [facility] MED CTR VISUAL UNDERBASTER ST UNDERBASTER ST COLOR CMPRSN METHS GLUC BLD [address] GLUC MNTR 4 [facility] DEV [facility] MED CTR CLEARED UNDERBASTER ST UNDERBASTER ST FDA SPEC HOME USE INJECTION J1100 ST ST [facility] CTR SONE UNDERBASTER ST UNDERBASTER ST SODIUM PHOSPHATE [address] HYDROCORT 4 [facility] ISONE [facility] MED CTR SODIUM UNDERBASTER ST UNDERBASTER ST SUCCINATE TO [address] IN[address] 4 [facility] ONDANSETR MED CTR MED CTR ON HCL UNDERBASTER ST UNDERBASTER ST [place] 1 [place] [address] PROLACTIN 4 [place] [address] TESTOSTER 4 EVENS EVENS ONE TOTAL FT FT HU LUI GONADOTRO [address] PIN 4 [facility] EVENS LUTEINIZI FT FT NG HU HU HORMONE GONADOTRO [address] PIN 4 [facility]ENS EVENS FOLLICLE [place] [address] RADIOLOGY PATRIA TRANSVAGI 4 ATT NAL ASSOCIATE S OF [facility] COLLECTIO [address] N VENOUS 4 EVENS EVENS BLOOD FT FT VENIPUNCT HU LUI URE US PELVIC 24206 RADIOLOGY PATRIA 4 ATT NONOBSTET ASSOCIATE SHAUN S OF [facility] REAL-TIME IMAGE COMPLETE CHIROPRAC 39855 SPERBECK SPERBECK TIC 4 MAR MAR MANIPLTV TX EXTRASPIN AL 1/> [facility] CHIROPRAC 29441 SPERBECK SPERBECK TIC 4 MAR MAR MANIPULAT RACHEL TX SPINAL 3-4 [facility] [place] BRAIN [address] BRAIN 4 [facility] CHOUTH STEM W/O LI LI W/CONTRAS T MATERIAL INJ A[address] GADOBENAT 4 EVENS EVENS E LI LI DIMEGLUMI NE MULTIHANC E PER ML CHIROPRAC 44255 SPERBECK SPERBECK TIC 4 MAR MAR MANIPLTV TX EXTRASPIN AL 1/> [facility] MEDICAL [address]60 ST NETO WAE NUTRITION 4 [facility] THERAPY GRP2/ PHYSICIAN INDIV EA S 30 MD CHIROPRAC 81442 SPERBECK SPERBECK TIC 4 MAR MAR MANIPULAT RACHEL [place] SPINAL 3-[address] TION RATE 4 [facility] HORNER RBC LI LI AUTOMATED CREATININ [address] E BLOOD 4 [facility] CHOUTH LI LI HEMOGLOBI [address] N 4 [facility] HORNER GLYCOSYLA LI LI ANDERS A1C CT SOFT 89290 RADIOLOGY GARCIA BYR TISSUE 4 NECK ASSOCIATE W/CONTRAS S OF NOTH T MATERIAL LOCM Q9967 ST. ST. 300-399 4 [facility] HORNER MG/ML LI LI IODINE CONCENTRA TION PER ML BLOOD [address] COUNT 4 [facility] HORNER COMPLETE LI LI AUTOMATED CYTP 32900 [facility] [place] DON CERVICAL/ 4 [facility] VAGINAL MED CTR REQ INTERP PHYSICIAN CYTP C/V [address] AUTO THIN 4 [facility] HORNER LYR MED CTR MED CTR PREPJ SCR UNDERBASTER ST UNDERBASTER ST MNL RESCR PHYS BLD GLU A4253 LIBERATOR LIBERATOR TEST/REAG 4 MEDICAL MEDICAL T STRIPS SUPPLY SUPPLY HOME BLD INC INC GLU MON-50 NORMAL A4256 LIBERATOR LIBERATOR LOW AND 4 MEDICAL MEDICAL HIGH SUPPLY SUPPLY CALIBRATO INC INC R SOLUTION/ CHIPS LANCETS A4259 LIBERATOR LIBERATOR PER BOX 4 MEDICAL MEDICAL OF 100 SUPPLY [facility] 55552 SPERBECK SPERBECK TIC 4 MAR MAR MANIPLTV TX EXTRASPIN AL 1/> [facility] A4258 LIBERATOR LIBERATOR WERED 4 MEDICAL FLEET ADMINISTRATOR SUPPLY SUPPLY FOR INC INC LANCET EACH CHIROPRAC 93374 SPERBECK SPERBECK TIC 4 MAR MAR MANIPULAT RACHEL TX SPINAL 3-[address] NETO WAE &TRAINING 4 [facility] SELF-MGMT PHYSICIAN NONPHYS S 1 PT CHIROPRAC 47043 SPERBECK SPERBECK TIC 4 MAR MAR MANIPLTV TX EXTRASPIN AL 1/> [facility] CHIROPRA 82223 SPERBECK SPERBECK TIC 4 MAR MAR MANIPULAT RACHEL TX SPINAL 3-4 [facility] TYMPANOME 23173 RUBINSTEI RUBINSTEI TRY 4 N GULSHAN N GULSHAN PURE TONE 51469 RUBINSTEI RUBINSTEI 4 N GULSHAN N GULSHAN AUDIOMETR Y AIR & BONE CHIROPRAC 30448 SPERBECK SPERBECK TIC 4 MAR MAR MANIPULAT RACHEL TX SPINAL 3-4 [facility] CHIROPRA 04955 SPERBECK SPERBECK TIC 4 MAR MAR MANIPLTV TX EXTRASPIN AL 1/> REGION CHIROPRAC 17940 SPERBECK SPERBECK TIC 4 MAR MAR MANIPLTV TX EXTRASPIN AL 1/> REGION CHIROPRAC 53392 SPERBECK SPERBECK TIC 4 MAR MAR MANIPULAT RACHEL TX SPINAL 3-4 [facility] CHIROPRAC 20555 SPERBECK SPERBECK TIC 4 MAR MAR MANIPULAT RACHEL TX SPINAL 3-4 [facility] CHIROPRAC 98572 SPERBECK SPERBECK TIC 4 MAR MAR MANIPLTV TX EXTRASPIN AL 1/> REGION CHIROPRAC 50577 SPERBECK SPERBECK TIC 4 MAR MAR MANIPLTV TX EXTRASPIN AL 1/> REGION CHIROPRA 74632 SPERBECK SPERBECK TIC 4 MAR MAR MANIPULAT RACHEL TX SPINAL 3-4 [facility] CHIROPRA 64424 SPERBECK SPERBECK TIC 4 MAR MAR MANIPULAT RACHEL TX SPINAL 3-4 [facility] CHIROPRA 30574 SPERBECK SPERBECK TIC 4 MAR MAR MANIPLTV TX EXTRASPIN AL 1/> REGION CHIROPRA 77406 SPERBECK SPERBECK TIC 4 MAR MAR MANIPLTV TX EXTRASPIN AL 1/> REGION CHIROPRA 32144 SPERBECK SPERBECK TIC 4 MAR MAR MANIPULAT RACHEL TX SPINAL 3-4 [facility] SBSQ 57079 [facility] 4 [place] BREANNA CARE/DAY 25 PHYSICIAN MINUTES S SBSQ [address] BREANNA CARE/DAY 35 PHYSICIAN MINUTES S SBSQ 36975 [facility] 4 [place] FINA CARE/DAY 25 PHYSICIAN MINUTES S CENTRAL 3897 ST VENOUS 4 [facility] CATHETER FT FT PLACEMENT HU LUI WITH GUIDANCE [facility] 41208 [facility] 4 [place] YEAR LAT CARE/DAY 35 PHYSICIAN MINUTES S NON-INVAS [address]390 ST RACHEL 4 [facility] MECHANICA FT FT L HU LUI VENTILATI ON INITIAL 62872 [facility] INPATIENT 4 [facility] FINA CONSULT NEW/ESTAB PHYSICIAN PT 80 S MIN RADIOLOGI 54803 RADIOLOGY NEILS ESTHER C EXAM 4 CHEST 2 ASSOCIATE VIEWS S OF NOTH FRONTAL&L ATERAL OPHTH 79041 [facility] SANTILL[facility] 8 JR, JR, XM&EVAL LISA BELLO NEW PT 1/> VST DETERMINA 76497 JACQUE SANTILLAN TION 8 JR, JR, REFRACTIV LISA Yuan [facility] PRESSURIZ 72287 URGENT ANCIRO, ED/NONPRE 8 MEDICAL ZAHRA SSURIZED CARE INHALATIO N TREATMENT RADIOLOGI 20206 [facility] 8 VILLAV, E EXAMINATI RADIOLOGY A ON CHEST ASSOC SINGLE VIEW FRONTAL URNLS DIP 72158 LAB FAZAL LAB FAZAL 8 AMERIC AMERIC STICK/TAB HOLDING HOLDING LET REAGENT AUTO MICROSCOP Y BLOOD 27853 LAB FAZAL LAB FAZAL COUNT 8 AMERIC AMERIC COMPLETE HOLDING HOLDING AUTO&AUTO DIFRNTL WBC URINE 04556 [facility], 8 CLINIC ZAHRA R TEST PSC VISUAL COLOR CMPRSN METHS CONIZATIO 42681 LADIES BARRETO, N CERVIX 8 CLINIC ZAHRA R W/WO D&C PSC RPR ELTRD EXC LEVEL V 89766 PATHOLOGY PATHOLOGY SURG 8 & & PATHOLOGY CYTOLOGY CYTOLOGY LAB LAB GROSS&ZAYRA ROSCOPIC EXAM CLOSURE 86.59 M. Quang BLANDON & Ingrid BAILEY SUBCUTANE OUS NEC Encounters Encounter Start End Date Code Location Performer Type Date [facility] ST[facility] - 7 7 [facility] INPATIENT ELGIN OFFICE 60305 [facility] 7 7 [facility] T VISIT 15 PHYSICIAN MINUTES S OFFICE 92831 [facility] 7 7 [facility] T VISIT 15 PHYSICIAN MINUTES [facility] 7 7 [facility] OUTPATIEN [facility] EDGE EMERGENCY 30678 [facility] 7 7 [facility] DEPARTMEN LI T VISIT LOW/MODER SEVERITY [facility]OSPITAL ST[facility] - 7 7 [facility] OUTPATIEN LI T OFFICE 54371 [facility] 7 7 [facility] T NEW 45 MINUTES PHYSICIAN S OFFICE 73120 [facility] 7 7 [facility] YEAR T VISIT 15 PHYSICIAN MINUTES [facility] 7 7 [facility] [address] [facility] 7 7 [facility] T VISIT 25 PHYSICIAN MINUTES S EMERGENCY 39823 [facility] MANUEL 7 7 [facility] T VISIT HIGH/URGE NT SEVERITY HOSPITAL LUIS MANUEL - 7 7 [facility] - 7 7 [facility] OUTPATIEN [facility] 37746 [facility] 7 7 [facility] T VISIT MODERATE SEVERITY [facility] - 7 7 [facility] INPATIENT [facility] 23537 LUIS MANUEL 7 7 [facility] T VISIT MODERATE SEVERITY HOSPITAL LUIS MANUEL - 7 7 [facility] OFFICE 78527 [facility] OUTPATIEN 6 6 [facility] YEAR LAT T VISIT 15 PHYSICIAN MINUTES [facility] ST - 6 6 [facility] OUTPATIEN MED CTR T UNDERBASTER [facility] EMERGENCY 13390 ST 6 6 [facility] VISIT UNDERBASTER HIGH/URGE NT SEVERITY HOSPITAL ST - 6 6 [facility] INPATIENT MED CTR UNDERBASTER ST OFFICE 43333 [facility] OUTPATIEN 6 6 [facility] GRE T VISIT 15 PHYSICIAN [address] [facility] - 6 6 [facility] INPATIENT MED CTR UNDERBASTER ST OFFICE 51491 [facility] OUTPATIEN 6 6 [facility] T VISIT [address] - 6 6 [facility] OUTPATIEN JULIO T OFFICE 93969 [facility] 6 6 [facility] T VISIT [address] - 5 5 [facility] OUTPATIEN MED CTR T UNDERBASTER [facility] EMERGENCY [address] ST 5 5 [facility] DEPARTMEN MED CTR T VISIT UNDERBASTER ST MODERATE SEVERITY OFFICE 78899 RUBINSTEI RUBINSTEI OUTPATIEN 5 5 N GULSHAN N GULSHAN T VISIT [address] - 5 5 [facility] OUTPATIEN T HEALTHCAR E EDGE OFFICE 25484 RUBINSTEI RUBINSTEI OUTPATIEN 5 5 N GULSHAN N GULSHAN T VISIT [address] [place] OUTPATIEN 4 4 [facility] REGAN T VISIT 15 PHYSICIAN MINUTES S OFFICE 19408 [facility] [place] OUTPATIEN 4 4 SPECIALIS LUIS ANGEL T VISIT TS OF 15 GREATER MINUTES OFFICE [address] [facility] HERMILLER OUTPATIEN 4 4 [facility] GIANNA T VISIT [address] ACCESS 4 4 [facility] LI OFFICE 13064 FOOT TIRONE OUTPATIEN 4 4 SPECIALIS LUIS ANGEL T VISIT TS OF 15 GREATER MINUTES EMERGENCY 18222 ST. 4 4 [facility] DEPARTMEN LI T VISIT MODERATE SEVERITY CRITICAL ST. ACCESS 4 4 [facility] LI OFFICE 64774 ST [facility] OUTPATIEN 4 4 [facility] YEAR LAT T VISIT 25 PHYSICIAN MINUTES S OFFICE 201[address] [facility] OUTPATIEN 4 4 [facility] JAM T VISIT MED CTR [address] - OTHER 4 4 [facility] MED CTR UNDERBASTER ST OFFICE [address] [facility] 4 4 [facility] REGAN T VISIT 25 PHYSICIAN MINUTES S OFFICE [address] HERMILLER CONSULTAT 4 4 EVENS GIANNA ION NEW/ESTAB PHYSICIAN PATIENT S 60 MIN OFFICE 76717 RUBINSTEI RUBINSTEI OUTPATIEN 4 4 N GULSHAN N GULSHAN T VISIT 40 MINUTES OFFICE 88025 RUBINSTEI RUBINSTEI OUTPATIEN 4 4 N GULSHAN N GULSHAN T VISIT [address] AGUILAR MAR OUTPATIEN 4 4 EVENS T NEW 45 MINUTES PHYSICIAN S EMERGENCY 55903 ST GALLATIN 4 4 [facility]ENS DUSTIN DEPARTMEN T VISIT PHYSICIAN MODERATE S SEVERITY EMERGENCY 81018 EMERGENCY SELWYN DEPT 4 4 CARE CHRIS VISIT PHYS HIGH [facility]VER[facility] - 4 4 [facility] OUTPATIEN FT T HU OFFICE 77264 ONCOLOGY TERESITA CHR OUTPATIEN 4 4 HEMATOLOG T VISIT Y CARE 15 INC MINUTES EMERGENCY 875[address] ST DANNEMAN 4 4 [facility] HOL DEPARTMEN MED CTR T VISIT HIGH/URGE NT SEVERITY OFFICE 0[address]14 [facility] OUTPATIEN 4 4 [facility] JAM T VISIT MED CTR [address]ES [address] BUDBRADLEYI OUTPATIEN 4 4 [facility] IRF T VISIT [address] - 4 4 [facility] OUTPATIEN MED CTR T UNDERBASTER [facility] ST - 4 4 [facility] OUTPATIEN MED CTR T UNDERBASTER OFFICE 51356 FOOT TIRONE OUTPATIEN 4 4 SPECIALIS LUIS ANGEL T VISIT TS OF [address] - 4 4 [facility] OUTPATIEN FT T HU OFFICE 88628 ONCOLOGY TERESITA CHR OUTPATIEN 4 4 HEMATOLOG T VISIT Y CARE 25 INC MINUTES OFFICE 19693 RUBINSTEI RUBINSTEI OUTPATIEN 4 4 N GULSHAN N GULSHAN T VISIT 40 MINUTES EMERGENCY 68371 EMERGENCY LE HIE DEPT 4 4 CARE VISIT PHYS HIGH NORTHERN SEVERITY& THREAT FUNCJ EMERGENCY 71017 EMERGENCY SHAE HO DEPT 4 4 CARE VISIT PHYS HIGH NORTHERN SEVERITY& THREAT FUNCJ EMERGENCY 69251 EMERGENCY [facility] JESUS 4 4 CARE DEPARTMEN PHYS T VISIT NORTHERN HIGH/URGE NT SEVERITY OFFICE 36[address] ST DOUGLAS JAYESH OUTPATIEN 4 4 [facility] T VISIT 25 PHYSICIAN MINUTES S OFFICE [address] [facility] CONSULTAT 4 4 [facility] JAM ION MED CTR NEW/ESTAB PATIENT [address] - 4 4 [facility] OUTPATIEN MED CTR T [facility] ST - 4 4 [facility] OUTPATIEN [facility] - 4 4 [facility] OUTPATIEN LI T OFFICE [address] [facility] DOUGLAS JAYESH OUTPATIEN 4 4 [facility] T VISIT [address] PHYSIC[address]. - 4 4 [facility] OUTPATIEN LI T INITIAL [address] VIOLET PREVENTIV 4 4 [facility] Yuan MEDICINE PHYSICIAN NEW PT S AGE [id number] [facility] ST - 4 4 [facility] OUTPATIEN MED CTR T UNDERBASTER OFFICE 64929 FOOT TIRONE OUTPATIEN 4 4 SPECIALIS LUIS ANGEL T NEW 30 TS OF MINUTES GREATER OFFICE 09245 RUBINSTEI RUBINSTEI OUTPATIEN 4 4 N GULSHAN N GULSHAN T NEW [address] DOUGLAS JAYESH OUTPATIEN 4 4 [facility] T NEW 45 MINUTES PHYSICIAN S OFFICE 94731 [facility] OUTPATI[facility] 4 4 MAR MAR T NEW [address] - 4 4 [facility] EMERGENCY 57619 EMERGENCY DAVREN DEPT 4 4 CARE ESTHER VISIT PHYS HIGH NORTHERN SEVERITY& THREAT FUNCJ Emergency JAYSON Quintero MD (ER) 3 18:09 3 23:50 [facility] Emergency JAYSON Quintero MD (ER) 3 22:37 3 22:51 [facility] Emergency JAYSNO Quintero MD (ER) 3 20:08 3 22:59 [facility] Emergency JAYSON Quintero MD (ER) 3 03:48 3 05:48 [facility] OFFICE 58145 URGENT ANCIRO, OUTPATIEN 8 8 MEDICAL ZAHRA T NEW 30 CARE MINUTES EMERGENCY 27948 [facility], 8 8 [facility] T VISIT PHYS INC HIGH/URGE NT [facility] - 8 8 [place] OUTPATIEN D T [facility] OFFICE 74435 JAMES HINSON OUTPATIEN 8 8 CLINIC , T [facility]ISIT [facility] 15 D MINUTES
--- OUTSIDE RECORDS SUMMARY | 2017-05-08 20:31 | External Medical Summary Rpt | CCD ---
Author Author , KENDALL Organization KENDALL Address Unknown Phone [email or web address] Care Team Providers Care Cut Tobacco Bulker Name Role Phone ABDALISIA ELIGIO, Unavailable Unavailable [...] Unavailable Unavailable [facility] Unavailable Unavailable [facility], [facility] DUSTIN, Unavailable Unavailable [facility] Lissy SINGH A, Unavailable Unavailable HEDRICK-RONALD, E [...] MAR [facility], Unavailable Unavailable [facility] Unavailable Unavailable HU, [facility] HU [facility] Unavailable Unavailable [facility], [facility], Unavailable Unavailable [facility] Unavailable Unavailable REGISTERED RESPIRATORY TECHNICIAN ST[facility] REGISTERED RESPIRATORY TECHNICIAN [facility] Unavailable Unavailable PH[facility]ICIANS, [facility] Unavailable Unavailable [place], Unavailable [facility] Unavailable Unavailable PHYSICIANS, [facility] TANGVALD IV THO, Unavailable Unavailable TANGVALD IV THO [facility] Unavailable Unavailable MEDICAL, [facility] MEDICAL TIRONE LUIS ANGEL, TIRONE Unavailable Unavailable LUIS ANGEL [facility] Unavailable Unavailable [facility], [facility] VON HOENE AMA, VON Unavailable Unavailable HOENE AMA CATIA PHI, Unavailable Unavailable CATIA PHI ELISEO BARDALES, Unavailable Unavailable ELISEO BARDALES WORLEY Unavailable Unavailable FARHEEN CAM, FARHEEN Unavailable Unavailable [facility] Un[facility] LARRY D SHAE HO, SHAE HO Unavailable [...] G894 CHRONIC 11-20-2016 PAIN [facility] SYNDROME PHYSICIANS Q87265 PAIN IN 11-20-2016 RIGHT FOOT [facility] E1142 TYPE 2 11-18-2016 . DIABETES [facility] MELLITUS PHYSICIANS W/DIAB POLYNEUROPA THY E790 HYPERURICEM 11-18-2016 ST. IA W/O [facility] SIGNS IA & PHYSICIANS TOPHACEOUS DISEASE [id number] CHRONIC 11-18-2016 . GOUT [facility] UNSPECIFIED PHYSICIANS WITH TOPHUS J4550 SEVERE 10-23-2016 PERSISTENT [facility] UNCOMPLICAT EDGE ED E1140 TYPE 2 DM 09-20-2016 . WITH [facility] DIABETIC LI NEUROPATHY UNSPECIFIED G8929 OTHER 09-20-2016 ST. CHRONIC [facility] PAIN LI J449 CHRONIC 09-20-2016 ST. OBSTRUCTIVE [facility] PULMONARY LI DISEASE UNS D01330 UNSPECIFIED 09-20-2016 ST. ASTHMA [facility] UNCOMPLICAT LI ED K219 GASTRO-ESOP 09-20-2016 ST. H REFLUX [facility] DISEASE LI WITHOUT ESOPHAGITIS R1084 GENERALIZED 09-20-2016 . ABDOMINAL [facility] PAIN LI R112 NAUSEA WITH 09-20-2016 ST. VOMITING [facility] UNSPECIFIED LI R197 DIARRHEA 09-20-2016 ST. UNSPECIFIED [facility] LI U85947 PAIN IN 09-18-2016 LEFT FOOT [facility] PHYSICIANS R1011 RIGHT UPPER 09-18-2016 QUADRANT EEVNS PAIN PHYSICIANS Z6844 BODY MASS 09-18-2016 ST INDEX BMI [facility] 60.0-69.9 PHYSICIANS ADULT Y70610 OTHER LONG 09-18-2016 TERM [facility] CURRENT PHYSICIANS DRUG THERAPY E669 OBESITY 09-17-2016 UNSPECIFIED [facility] PHYSICIANS G4733 OBSTRUCTIVE 09-17-2016 SLEEP [facility] APNEA ADULT PHYSICIANS PEDIATRIC E1169 TYPE 2 09-09-2016 DIABETES [facility] MELLITUS [facility]ALTHCARE W/OTH SPEC EDGE COMPLICATIO N E229 HYPERFUNCTI 09-09-2016 ON OF D[facility]TER PITUITARY HEALTHCARE GLAND EDGE UNSPECIFIED E785 HYPERLIPIDE 09-09-2016 TIFFANIE [facility] UNSPECIFIED HEALTHCARE EDGE 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 SPRAIN DEXTER RIGHT FOOT LI INITIAL ENCOUNTER Z6843 BODY MASS 08-04-2016 ST. 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 [facility] HYPOGLYCEMI C DRUGS O48654 PERSONAL 08-04-2016 . HISTORY OF DEXTER NICOTINE LI DEPENDENCE J45.51 Severe 07-23-2016 persistent asthma with (acute) exacerbatio n J45.998 Other 07-23-2016 asthma K75.81 Nonalcoholi 07-23-2016 c steatohepat itis (MUÑOZ) Z79.4 snf 07-23-2016 (current) use of insulin J4551 SEVERE 07-23-2016 PERSISTENT DEXTER ASTHMA WITH HEALTHCARE ACUTE EDGE EXACERBATIO N J9601 ACUTE 07-23-2016 RESPIRATORY D[facility] FAILURE HEALTHCARE WITH EDGE HYPOXIA K7581 NONALCOHOLI 07-23-2016 C DEXTER STEATOHEPAT HEALTHCARE ITIS EDGE D72.829 Elevated 06-06-2016 white blood cell count, unspecified R09.02 Hypoxemia 06-06-2016 E78.5 Hyperlipide 06-06-2016 tiffanie, unspecified K02455 UNSPECIFIED 05-29-2016 ASTHMA [facility]TER WITH ACUTE PHYSICIANS EXACERBATIO N J9691 RESPIRATORY 11-25-2015 FAILURE [facility] UNSPECIFIED MED CTR REGISTERED RESPIRATORY TECHNICIAN WITH ST HYPOXIA Z9981 DEPENDENCE 10-09-2015 ST ON [facility] SUPPLEMENTA MED CTR REGISTERED RESPIRATORY TECHNICIAN L OXYGEN ST K94748 OTHER 09-24-2015 ASTHMA [facility] PHYSICIANS R079 CHEST PAIN 09-24-2015 UNSPECIFIED [facility] PHYSICIANS R609 EDEMA 09-24-2015 UNSPECIFIED [facility] PH[facility]ICIANS R51 HEADACHE 09-04-2015 . [facility] JULIO K8050 CALCULUS BD 07-23-2015 ST W/O [facility] CHOLANGITIS PHYSICIANS /CHOLECYST W/O OBST 79708 DIAB W/O 01-01-2015 [facility] COMP TYPE MEDICAL II/UNS TYPE UNCNTRL 2518 OTH SPEC 01-01-2015 [facility] INTERNAL SECRETION V5865 LONG-TERM 01-01-2015 [facility] USE OF HOSPITAL STEROIDS MEDICAL V5867 LONG-TERM 01-01-2015 [facility] USE OF HOSPITAL INSULIN MEDICAL 58169 OBSTRUCTIVE 12-22-2014 [facility] APNEA ASSOCIAT 47080 ASTHMA 12-22-2014 [facility] UNSPECIFIED PULMONARY WITH ASSOCIAT EXACERBATIO N 19212 HYPOXEMIA 12-22-2014 [facility] 3813 OTHER&UNSPE 11-13-2014 ANA C CHRONIC GULSHAN NONSUPPURAT RACHEL OTITIS MEDIA 93789 UNSPECIFIED 11-13-2014 ANA GULSHAN TEMPOROMAND IBULAR JOINT DISORDERS 3829 UNSPECIFIED 09-26-2014 OTITIS [facility] MEDIA HEALTHCARE EDGE 73721 HYPERTROPHY 09-26-2014 OF DEXTER ADENOIDS HEALTHCARE ALONE EDGE 4760 CHRONIC 09-26-2014 ST LARYNGITIS DEXTER HEALTHCARE EDGE 4785 OTHER 09-26-2014 DISEASES OF DEXTER VOCAL HEALTHCARE CORDS EDGE 490 BRONCHITIS 09-26-2014 NOT DEXTER SPECIFIED HEALTHCARE ACUTE OR EDGE CHRONIC 65419 DYSPHONIA 09-26-2014 [facility] HEALTHCARE EDGE 03552 DYSPHAGIA 09-26-2014 UNSPECIFIED DEXTER HEALTHCARE EDGE 91088 CHRONIC 09-22-2014 ANA ADENOIDITIS GULSHAN 37788 MORBID 08-23-2014 PATIENT OBESITY AIDS INC 14121 CHRONIC 08-23-2014 PATIENT OBSTRUCTIVE AIDS INC ASTHMA UNSPECIFIED 586 UNSPECIFIED 08-23-2014 PATIENT RENAL AIDS INC FAILURE 2550 CUSHINGS 07-04-2014 ST SYNDROME [facility]ICIANS 7259 UNSPECIFIED 07-04-2014 ST VITAMIN D [facility] DEFICIENCY PHYSICIANS 4019 UNSPECIFIED 07-04-2014 ST ESSENTIAL [facility] HYPERTENSIO PHYSICIANS N V5869 LONG-TERM 07-04-2014 ST (CURRENT) [facility] USE OF PHYSICIANS OTHER MEDICATIONS 7038 OTHER 06-13-2014 FOOT SPECIFIED SPECIALISTS DISEASE OF OF GREATER NAIL 7295 PAIN IN 06-13-2014 FOOT SOFT SPECIALISTS TISSUES OF OF GREATER LIMB 76924 OTHER 06-13-2014 FOOT DISORDERS SPECIALISTS OF BONE AND OF GREATER CARTILAGE OTHER 76788 UNSPECIFIED 06-13-2014 FOOT SITE OF SPECIALISTS ANKLE OF GREATER SPRAIN AND STRAIN 59733 DIAB W/O 05-14-2014 ST. COMP TYPE [facility] II/UNS NOT LI STATED UNCNTRL 94927 ESOPHAGEAL 05-14-2014 ST. REFLUX [facility] LI V148 PERSONAL 05-14-2014 ST. HISTORY [facility] ALLERGY OTH LI SPEC MEDICINAL AGTS V1507 PERSONAL 05-14-2014 ST. HISTORY OF [facility] ALLERGY TO LI LATEX V1582 PERS HX 05-14-2014 ST. TOBACCO USE [facility] PRESENTING LI Macromill 91752 DIAB 05-05-2014 FOOT W/NEURO SPECIALISTS MANIFESTS OF GREATER TYPE II/UNS NOT UNCNTRL 82983 UNSPECIFIED 05-05-2014 FOOT CELLULITIS SPECIALISTS AND OF GREATER ABSCESS OF TOE 7068 OTHER 05-05-2014 FOOT SPECIFIED SPECIALISTS DISEASE OF OF GREATER SEBACEOUS GLANDS 81527 ASTHMA, 04-18-2014 ST. UNSPECIFIED [facility] , LI UNSPECIFIED STATUS 89865 UNSPECIFIED 04-18-2014 ST. SLEEP [facility] APNEA LI V8543 BODY MASS 04-18-2014 ST. INDEX [facility] 50.0-59.9 LI ADULT 1120 CANDIDIASIS 04-12-2014 ST OF MOUTH [facility] PHYSICIANS V5889 ENCOUNTER 04-12-2014 ST FOR OTHER [facility] SPECIFIED PHYSICIANS AFTERCARE V8544 BODY MASS 04-12-2014 ST INDEX [facility] 60.0-69.9 PHYSICIANS ADULT 6202 OTHER AND 02-08-2014 RADIOLOGY UNSPECIFIED ASSOCIATES OVARIAN OF NOTH CYST 38637 DEHYDRATION 02-06-2014 [facility] PHYSICIANS 37799 LEUKOCYTOSI 02-06-2014 ST S [facility] UNSPECIFIED PHYSICIANS 5849 ACUTE 02-06-2014 ST KIDNEY [facility] FAILURE PHYSICIANS UNSPECIFIED 5939 UNSPECIFIED 02-06-2014 RADIOLOGY DISORDER ASSOCIATES OF KIDNEY OF [facility] AND URETER 16338 NAUSEA WITH 02-06-2014 ST VOMITING [facility] PHYSICIANS 58335 NAUSEA 02-06-2014 RADIOLOGY ALONE ASSOCIATES OF [facility] 56634 ABDOMINAL 02-06-2014 ST PAIN RIGHT [facility] UPPER PHYSICIANS QUADRANT 7891 HEPATOMEGAL 02-06-2014 RADIOLOGY Y ASSOC[facility]ATES OF [facility] 27181 SHORTNESS 01-16-2014 RADIOLOGY OF BREATH ASSOCIATES OF [facility] E55.9 Vitamin D 01-02-2014 deficiency, unspecified 87944 WHEEZING 01-02-2014 DEBORA ANI 90304 OTHER 01-02-2014 DEBORA ANI DYSPNEA AND RESPIRATORY ABNORMALITI ES 7945 NONSPECIFIC 12-26-2013 ABNORM [facility] RESULTS PHYSICIANS THYROID FUNCT STUDY 5259 UNSPECIFIED 11-27-2013 DISORDER [facility] TEETH&SUPPO PHYSICIANS RTING STRUCTURES 44725 OTHER 11-22-2013 EMERGENCY SPECIFIED CARE PHYS CARDIAC NORTHERN DYSRHYTHMIA S 4779 ALLERGIC 11-17-2013 RHINITIS [facility] CAUSE FT HU UNSPECIFIED 4660 ACUTE 11-13-2013 BRONCHITIS [facility] MED CTR 89799 GENERALIZED 11-10-2013 TANGVALD IV ANXIETY THO DISORDER 0794 HUMAN 11-07-2013 PAPILLOMA [facility] VIRUS IN MED CTR REGISTERED RESPIRATORY TECHNICIAN CCE & UNS ST SITE 39868 MILD 11-07-2013 DYSPLASIA [facility] OF [facility] MED CTR REGISTERED RESPIRATORY TECHNICIAN ST 91196 PAP SMER 11-07-2013 CERV W/LW [facility] GRADE PHYSICIANS SQUAMOUS INTRAEPITH LES 2859 UNSPECIFIED 11-01-2013 ST ANEMIA [facility] MED CTR REGISTERED RESPIRATORY TECHNICIAN ST 7867 ABNORMAL 11-01-2013 RADIOLOGY CHEST ASSOCIATES SOUNDS OF [facility] 5718 OTHER 10-21-2013 RADIOLOGY CHRONIC ASSOCIATES NONALCOHOLI OF [facility] C LIVER DISEASE 04393 ABDOMINAL 10-21-2013 RADIOLOGY PAIN, ASSOCIATES UNSPECIFIED OF [facility] SITE 90875 ABDOMINAL 10-20-2013 EMERGENCY PAIN OTHER CARE PHYS SPECIFIED NORTHERN SITE 1101 DERMATOPHYT 10-06-2013 FOOT OSIS OF SPECIALISTS NAIL OF GREATER 486 PNEUMONIA, 10-05-2013 ORGANISM [facility] UNSPECIFIED PHYSICIANS 17954 CHEST PAIN 09-25-2013 RADIOLOGY UNSPECIFIED ASSOCIATES OF [facility] 93817 DISPLCMT 09-22-2013 [facility] LUMBAR MAR 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 7233 CERVICOBRAC 09-22-2013 [facility] HIAL MAR SYNDROME 8398 CLOSED 09-22-2013 [facility] DISLOCATION MAR MULTIPLE&IL L-DEFINED SITES 8471 THORACIC 09-22-2013 [facility] SPRAIN AND MAR STRAIN 06593 UNSPECIFIED 09-17-2013 EMERGENCY INFECTIVE CARE PHYS OTITIS NORTHERN EXTERNA 462 ACUTE 09-17-2013 EMERGENCY PHARYNGITIS CARE PHYS NORTHERN 4871 INFLUENZA 09-14-2013 ST WITH OTHER [facility] RESPIRATORY PHYSICIANS MANIFESTATI ONS 7232 CERVICOCRAN 09-13-2013 [facility] IAL MAR SYNDROME 3899 UNSPECIFIED 09-07-2013 ST HEARING [facility] LOSS MED CTR REGISTERED RESPIRATORY TECHNICIAN ST 470 DEVIATED 09-07-2013 ST NASAL [facility] SEPTUM MED CTR REGISTERED RESPIRATORY TECHNICIAN ST V140 PERSONAL 09-07-2013 ST HISTORY OF [facility] ALLERGY TO MED CTR REGISTERED RESPIRATORY TECHNICIAN PENICILLIN ST 6261 SCANTY OR 09-03-2013 ST INFREQUENT [facility] MENSTRUATIO FT HU N 7842 SWELLING 08-29-2013 ST. MASS OR [facility] LUMP IN LI HEAD AND NECK V7231 ROUTINE 08-25-2013 ST GYNECOLOGIC [facility] AL PHYSICIANS EXAMINATION 49948 OBESITY 07-17-2013 ST HYPOVENTILA [facility] TION FT HU SYNDROME 86980 ASTHMA 07-17-2013 ST UNSPECIFIED [facility] WITH FT HU STATUS ASTHMATICUS 94595 ACUTE AND 07-17-2013 ST CHRONIC [facility] RESPIRATORY FT HU FAILURE 250.00 250.00 DIAB 01-03-2013 Luis Manuel [facility] COMPL, TYPE Hospital II OR UNSPEC TYPE, NOT UNCNTRLD 401.9 401.9 01-03-2013 Luis Manuel HYPERTENSIO [facility] N NOS Hospital 493.90 493.90 01-03-2013 Luis Manuel ASTHMA, [facility] UNSPECIFIED Hospital 780.39 780.39 01-03-2013 Luis Manuel OTHER [facility] CONVULSIONS Hospital 847.0 847.0 01-03-2013 Luis Manuel SPRAIN OF [facility] NECK [facility] 883.0 883.0 OPEN 01-03-2013 Luis Manuel WOUND OF [facility] E849.0 E849.0 01-03-2013 Luis Manuel ACCIDENT IN [facility] E920.3 E920.3 01-03-2013 Luis [facility] V14.0 V14.0 01-03-2013 Luis Manuel HX-[facility] IN ALLERGY Hospital 250.03 250.03 DIAB 11-28-2012 Luis Manuel [facility] COMPL, TYPE Hospital I [JUVENILE TYPE], UNCONTROLLE D 3671 MYOPIA 07-03-2008 JR JACQUE, LISA Yuan 7862 COUGH 06-29-2008 URGENT MEDICAL CARE 01220 MODERATE 06-21-2008 [facility] [place] 7242 LUMBAGO 06-21-2008 [facility] V7241 06-12-2008 [facility] OR TEST NEGATIVE RESULT A41.9 Sepsis, unspecified organism D63.8 Anemia in other chronic diseases classified elsewhere E11.65 Type 2 diabetes mellitus with hyperglycem ia 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, 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.2 Morbid (severe) obesity with alveolar [...] PT DECISION FOR UNSP REASONS 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 IC 7 [facility] PROPHYLAC LI LI TIC/DX INJECTION SUBQ/[place] [address] [facility] LIPASE [address] [place] [address] [facility] LI LI BASIC 81781 [facility] METABOLIC [address] [place] [address] PANEL LI LI CALCIUM TOTAL BLOOD 70328 [facility]. COUNT [address] [place] [address] COMPLETE LI LI AUTO&AUTO DIFRNTL WBC HEPATIC 90036 [facility]. FUNCTION 7 [facility]NER PANEL LI LI COLLECTIO 37781 [facility]. N VENOUS 7 [facility] BLOOD LI LI VENIPUNCT URE COLLECTIO 53241 [facility] N VENOUS 7 [facility] ISSABETH BLOOD VENIPUNCT HEALTHCAR HEALTHCAR URE E EDGE E EDGE LIPID 36209 [facility] PANEL 7 [facility] HEALTHCAR HEALTHCAR E EDGE E EDGE MRI BRAIN 44818 [facility] BRAIN 7 [facility] STEM W/O W/CONTRAS HEALTHCAR HEALTHCAR [place] [address] [facility] GLYCATED 7 [facility] PROTEIN HEALTHCAR HEALTHCAR E EDGE E EDGE 25 59980 [facility] HYDROXY [facility] INCLUDES FRACTIONS HEALTHCAR HEALTHCAR IF E VAL E VAL PERFORMED THERAPEUT 68365 [facility] IC 7 [facility] PROPHYLAC TIC/DX HEALTHCAR HEALTHCAR INJECTION E EDGE E EDGE SUBQ/IM HEMOGLOBI 00834 [facility] N 7 [facility] H[facility]NER GLYCOSYLA ANDERS A1C HEALTHCAR HEALTHCAR E EDGE E EDGE GONADOTRO 22130 LUIS MANUEL ISSA PIN 7 MEM HOS[facility]OS[facility] [place] [address] LUIS MANUEL ISSA AMYLASE 7 [facility] INC INC THERAPEUT 42135 LUIS MANUEL ISSA IC 7 [facility] PROPHYLAC INC INC TIC/DX INJECTION SUBQ/IM INJECTION J0595 [facility] MANUEL ISSA 7 [facility] BUTORPHAN INC INC OL TARTRATE [address] [place] [address] LUIS MANUEL ISSA LIPASE 7 [place] [address] LU[facility] MANUEL ISSA ABDOMEN & 7 [facility] PELVIS INC INC W/O CONTRAST MATERIAL URNLS DIP 04845 [facility] ISSA 7 [facility] STICK/TAB INC INC LET REAGENT AUTO MICROSCOP Y BLOOD 14175 LUIS MANUEL ISSA COUNT 7 [facility] COMPLETE INC INC AUTO&AUTO DIFRNTL WBC COMPREHEN 50914 LU[facility]UEL ISSA SIVE 7 [facility] METABOLIC INC INC PANEL THERAPEUT [address] IC 7 [facility] ISSABETH PROPHYLAC TIC/DX HEALTHCAR HEALTHCAR INJECTION E EDGE E EDGE SUBQ/IM RADEX [address] ANKLE 7 DEXTER [facility] COMPLETE LI LI MINIMUM [address] FOOT 7 [facility] COMPLETE LI LI MINIMUM 3 VIEWS GONADOTRO 99574 LUIS MANUEL ISSA PIN 7 [facility] CHORIONIC INC INC QUALITATI VE INJECTION J2405 LUIS MANUEL ISSA 7 [facility] ONDANSETR INC INC ON HCL [place] [address] [place] [address] LUIS MANUEL ISSA LACTATE 7 MEM H[facility] INC INC URNLS DIP 25805 LUIS MANUEL ISSA 7 [facility] STICK/TAB INC INC [place] [address] LUIS MANUEL ISSA LIPASE 7 [facility] INC INC THER 54680 LUIS MANUEL ISSA PROPH/DX 7 [facility] NJX EA INC INC SEQL IV PUSH SBST/DRUG FAC BLOOD 40502 LUIS MANUEL ISSA COUNT 7 [facility] COMPLETE INC INC AUTO&[place] [address] LUIS MANUEL ISSA INFUSION 7 [facility] THERAPY/P INC INC ROPHYLAXI S /DX 1ST TO 1 HR THERAPEUT 73976 LUIS MANUEL ISSA IC 7 [facility] INJECTION INC INC IV PUSH EACH NEW DRUG COLLECTIO 61301 LUIS MANUEL ISSA N VENOUS 7 [facility] BLOOD INC INC VENIPUNCT URE COMPREHEN 32727 LU[facility] MANUEL ISSA SIVE 7 [facility] H[facility] METABOLIC INC INC PANEL CULTURE 50069 LUIS MANUEL ISSA BACTERIAL 7 [facility] BLOOD INC INC AEROBIC W/ID ISOLATES PRESSURIZ [address] ED/NONPRE 6 [facility] SSURIZED MED CTR MED CTR INHALATIO REGISTERED RESPIRATORY TECHNICIAN ST REGISTERED RESPIRATORY TECHNICIAN ST N TREATMENT CPAP [address] VENTILATI 6 [facility] ON CPAP MED CTR MED CTR INITIATIO REGISTERED RESPIRATORY TECHNICIAN ST REGISTERED RESPIRATORY TECHNICIAN ST N[facility] G0378 ST ST OBSERVATI 6 [facility] ON MED CTR MED CTR SERVICE REGISTERED RESPIRATORY TECHNICIAN ST REGISTERED RESPIRATORY TECHNICIAN ST PER HOUR THERAPEUT [address] IC 6 [facility] PROPHYLAC MED CTR MED CTR TIC/DX REGISTERED RESPIRATORY TECHNICIAN ST REGISTERED RESPIRATORY TECHNICIAN ST INJECTION SUBQ/IM NONINVASI [address] VE 6 [facility] EAR/PULSE MED CTR MED CTR OXIMETRY REGISTERED RESPIRATORY TECHNICIAN ST REGISTERED RESPIRATORY TECHNICIAN ST MULTIPLE DETER GLUC BLD [address] GLUC MNTR 6 [facility] ISSABETH DEV MED CTR MED CTR CLEARED REGISTERED RESPIRATORY TECHNICIAN ST REGISTERED RESPIRATORY TECHNICIAN ST FDA SPEC HOME USE GLUC BLD [address] GLUC MNTR 6 [facility] DEV MED CTR MED CTR CLEARED REGISTERED RESPIRATORY TECHNICIAN ST REGISTERED RESPIRATORY TECHNICIAN ST FDA SPEC HOME USE NONINVASI [address] VE 6 [facility] EAR/PULSE MED CTR MED CTR OXIMETRY REGISTERED RESPIRATORY TECHNICIAN ST REGISTERED RESPIRATORY TECHNICIAN ST MULTIPLE DETER THERAPEUT [address] IC 6 [facility] PROPHYLAC MED CTR MED CTR TIC/DX REGISTERED RESPIRATORY TECHNICIAN ST REGISTERED RESPIRATORY TECHNICIAN ST INJECTION SUBQ/IM THER [address] PROPH/DX 6 [facility] NJX EA MED CTR MED CTR SEQL IV REGISTERED RESPIRATORY TECHNICIAN ST REGISTERED RESPIRATORY TECHNICIAN ST PUSH SBST/DRUG [facility] G0378 ST ST OBSERVATI 6 [facility] ON MED CTR MED CTR SERVICE REGISTERED RESPIRATORY TECHNICIAN ST REGISTERED RESPIRATORY TECHNICIAN ST PER HOUR CPAP [address] VENTILATI 6 [facility] ON CPAP MED CTR MED CTR INITIATIO REGISTERED RESPIRATORY TECHNICIAN ST REGISTERED RESPIRATORY TECHNICIAN ST N&MGMT PRESSURIZ [address] ST [address] ED/NONPRE 6 [facility] SSURIZED MED CTR MED CTR INHALATIO REGISTERED RESPIRATORY TECHNICIAN ST REGISTERED RESPIRATORY TECHNICIAN ST N TREATMENT CPAP [address] VENTILATI 6 [facility] ON CPAP MED CTR MED CTR INITIATIO REGISTERED RESPIRATORY TECHNICIAN ST REGISTERED RESPIRATORY TECHNICIAN ST N&MGMT PRESSURIZ [address] ED/NONPRE 6 [facility] SSURIZED MED CTR MED CTR INHALATIO REGISTERED RESPIRATORY TECHNICIAN ST REGISTERED RESPIRATORY TECHNICIAN ST N TRE[facility]MENT HOSPITAL G[address] ST ST OBSERVATI 6 [facility] SERVICE REGISTERED RESPIRATORY TECHNICIAN ST REGISTERED RESPIRATORY TECHNICIAN ST PER HOUR THER [id number] PROPH/DX 6 [facility] NJX EA [facility] SEQL IV REGISTERED RESPIRATORY TECHNICIAN ST REGISTERED RESPIRATORY TECHNICIAN ST PUSH SBST/DRUG FAC THERAPEUT [id number] IC 6 [facility] PROPHYLAC [facility] TIC/DX REGISTERED RESPIRATORY TECHNICIAN ST REGISTERED RESPIRATORY TECHNICIAN ST INJECTION SUBQ/IM GLUC BLD [address] [facility] MNTR 6 [facility] DEV [facility] CLEARED REGISTERED RESPIRATORY TECHNICIAN ST REGISTERED RESPIRATORY TECHNICIAN ST FDA SPEC HOME USE [id number] HYDROXY 6 [facility] INCLUDES [facility] FRACTIONS REGISTERED RESPIRATORY TECHNICIAN ST REGISTERED RESPIRATORY TECHNICIAN ST IF PERFORMED NONINVASI [id number] VE 6 [facility] EAR/PULSE [facility] MED CTR OXIMETRY REGISTERED RESPIRATORY TECHNICIAN ST REGISTERED RESPIRATORY TECHNICIAN ST MULTIPLE DETER NONINVASI [address] VE 6 [facility] EAR/PULSE [facility] MED CTR OXIMETRY REGISTERED RESPIRATORY TECHNICIAN ST REGISTERED RESPIRATORY TECHNICIAN ST MULTIPLE DETER THER [address] PROPH/DX 6 [facility] NJ[facility] IV [facility] PUSH REGISTERED RESPIRATORY TECHNICIAN ST REGISTERED RESPIRATORY TECHNICIAN ST SINGLE/1S T SBST/DRUG GONADOTRO [id number] PIN 6 [facility] REGISTERED RESPIRATORY TECHNICIAN ST REGISTERED RESPIRATORY TECHNICIAN ST QUALITATI VE RADIOLOGI [address] C EXAM 6 [facility] CHEST 2 [facility] MED CTR VIEWS REGISTERED RESPIRATORY TECHNICIAN ST REGISTERED RESPIRATORY TECHNICIAN ST FRONTAL&L ATERAL GLUC BLD [address] ST [facility] MNTR 6 [facility] DEV [facility] CLEARED REGISTERED RESPIRATORY TECHNICIAN ST REGISTERED RESPIRATORY TECHNICIAN ST FDA SPEC HOME USE [place] [id number] ROUTINE 6 [facility] ECG [facility] W/LEAST REGISTERED RESPIRATORY TECHNICIAN ST REGISTERED RESPIRATORY TECHNICIAN ST 12 LDS TRCG ONLY W/O I&R THER [id number] PROPH/DX 6 [facility] SEQL IV REGISTERED RESPIRATORY TECHNICIAN ST REGISTERED RESPIRATORY TECHNICIAN ST PUSH SBST/DRUG FAC BASIC [address] METABOLIC 6 [facility] PANEL [facility] CALCIUM REGISTERED RESPIRATORY TECHNICIAN ST REGISTERED RESPIRATORY TECHNICIAN [id number] [facility] ST OBSERVATI 6 [facility] SERVICE REGISTERED RESPIRATORY TECHNICIAN ST REGISTERED RESPIRATORY TECHNICIAN ST PER HOUR THERAPEUT [id number] IC 6 [facility] INJECTION [facility] IV PUSH REGISTERED RESPIRATORY TECHNICIAN ST REGISTERED RESPIRATORY TECHNICIAN ST EACH NEW DRUG PRESSURIZ [id number] ED/NONPRE 6 [facility] SSURIZED [facility] MED CTR INHALATIO REGISTERED RESPIRATORY TECHNICIAN ST REGISTERED RESPIRATORY TECHNICIAN ST N TREATMENT BLOOD [address] COUNT 6 [facility] COMPLETE [facility] MED CTR AUTO&AUTO REGISTERED RESPIRATORY TECHNICIAN ST REGISTERED RESPIRATORY TECHNICIAN ST DIFRNTL WBC COLLECTIO [address] N VENOUS 6 [facility] BLOOD MED CTR MED CTR VENIPUNCT REGISTERED RESPIRATORY TECHNICIAN ST REGISTERED RESPIRATORY TECHNICIAN ST URE DRUG [address] SCREEN 6 [facility] QUANTITAT MED CTR MED CTR RACHEL REGISTERED RESPIRATORY TECHNICIAN ST REGISTERED RESPIRATORY TECHNICIAN ST THEOPHYLL INE OBSERVATI 35011 ST BANKERS ON CARE 6 [facility]ENS BRA DISCHARGE PHYSICIAN MANAGEMEN S T SBSQ [address]671 ST BANKERS OBSERVATI 6 [facility] BRA ON CARE/DAY PHYSICIAN 25 S MINUTES INITIAL [address]86 ST BANKERS OBSERVATI 6 [facility] BRA ON CARE/DAY PHYSIC[place] [address] [place] [address] HEAD/BRAI 6 [facility] N W/O & JULIO KIM W/CONTRAS T MATERIAL CREATININ [address] E BLOOD 6 [facility] JULIO JULIO RADEX [address] FOOT 5 [facility] COMPLETE [facility] MED CTR MINIMUM [address] TECH[address] REGISTERED RESPIRATORY TECHNICIAN ST VIEWS SBSQ 62225 [facility] 5 [facility] 35 MEDICAL MEDICAL MINUTES INITIAL 71285 [facility] INPATIENT 5 CHR CONSULT PULMONARY NEW/ESTAB ASSOCIAT [...] EQUIP REPLCMT FULL FACE MASK EA PRESSURIZ [address] ED/NONPRE 5 EVENSRUBEN HORNER SSURIZED [...] 85%/>02 [place] [address] [facility] INFUSION 4 [facility] HYDRATION LI LI EACH ADDITIONA L HOUR GLUC BLD 09788 [facility]. GLUC MNTR 4 [facility] DEV LI LI CLEARED FDA SPEC HOME USE COLLECTIO [address] [facility] [address] N VENOUS 4 [facility] BLOOD LI LI VENIPUNCT URE COMPREHEN [address] SIVE 4 [facility] METABOLIC LI LI PANEL O2 CONC 1 [id number] PATIENT PATIENT DEL PORT 4 AIDS INC AIDS INC 85%/>02 CONC AT PRSC FLW RATE RADEX 79617 [facility] ANKLE 4 [facility] COMPLETE LI LI MINIMUM 3 VIEWS O2 CONC 1 E1390 PATIENT PATIENT DEL PORT 4 AIDS INC AIDS INC 85%/>02 CONC AT PRSC FLW RATE INITIAL 31997 [facility] INPATIENT 4 [facility] ELIGIO CONSULT NEW/ESTAB PHYSICIAN PT 80 S MIN BASIC 89539 [facility] METABOLIC 4 [facility] PANEL MED CTR MED CTR CALCIUM REGISTERED RESPIRATORY TECHNICIAN ST REGISTERED RESPIRATORY TECHNICIAN [facility] 63616 [place] DISCHARGE 4 [facility] DAY MANAGEMEN PHYSICIAN T 30 S MIN/< HOSPITAL 16954 ST DISCHARGE 4 [facility] DAY MANAGEMEN PHYSICIAN PHYSICIAN T 30 S S MIN/< US PELVIC 38329 RADIOLOGY DEVIN 4 III LADONNA NONOBSTET ASSOCIATE SHAUN [place] [address] RADIOLOGY DEVIN TRANSVAGI 4 III LADONNA NAL ASSOCIATE S OF NOT HEPATOBIL 64141 RADIOLOGY ROBER IARY SYST 4 TONY IMAGING ASSOCIATE [place] [address] RADIOLOGY ADALI ABDOMINAL 4 BRA REAL ASSOCIATE TIME S [place]H W/[place] [address] RADIOLOGY ROBER RETROPERI 4 TONY TONEAL ASSOCIATE REAL TIME S OF NOTH W/IMAGE COMPLETE INITIAL 47101 [facility] INPATIENT 4 [facility] PHI CONSULT NEW/ESTAB PHYSICIAN PT 80 S MIN RADIOLOGI 89130 RADIOLOGY TEMPLETON C EXAM 4 GAR CHEST 2 ASSOCIATE VIEWS S OF NOTH FRONTAL&L ATERAL EXCISION 13230 FOOT TIRONE NAIL 4 SPECIALIS LUIS ANGEL MATRIX TS OF PERMANENT GREATER REMOVAL RADIOLOGI 26458 DEBORA DEBORA C 4 ANI ANI EXAMINATI ON CHEST SINGLE VIEW FRONTAL ECG 13781 ABDALLAH ABDALLAH ROUTINE 4 ELIGIO ELIGIO ECG W/LEAST 12 LDS I&R ONLY GLUC BLD 60208 [facility] GLUC MNTR 4 [facility] GIANNA DEV CLEARED PHYSICIAN FDA SPEC S HOME USE EXCISION 41695 FOOT TIRONE NAIL 4 SPECIALIS LUIS ANGEL MATRIX TS OF PERMANENT GREATER REMOVAL MEDICAL 07053 [facility] NUTRITION 4 [facility] GIANNA THERAPY GRP2/ PHYSICIAN INDIV EA S 30 NM SBSQ [address] CARE/DAY 25 PHYSICIAN MINUTES S INITIAL 50327 [facility] 4 DEXTER CARE/DAY 70 PHYSICIAN MINUTES S RADIOLOGI 98802 RADIOLOGY WALESKA C EXAM 4 SIMEON CHEST 2 ASSOCIATE VIEWS S OF NOT FRONTAL&L ATERAL POLYSOM 93875 RIDDLE 6/>YRS 4 [facility] JAM SLEEP MED CTR W/CPAP 4/> ADDL CHUY ATTND ALLERGEN [address] SPECIFIC 4 [facility] IGE FT FT KARLA/SEMI [facility] KARLA EA ALLERGEN COLLECTIO [address] N VENOUS 4 [facility] BLOOD FT FT VENIPUNCT [facility] URE ANTIBODY [address] REYNALDO 4 [facility] FT FT [facility] COLLECTIO 79120 ONCOLOGY TERESITA CHR N VENOUS 4 HEMATOLOG BLOOD Y CARE VENIPUNCT INC URE BLOOD 59856 ONCOLOGY TERESITA CHR COUNT 4 HEMATOLOG COMPLETE Y CARE AUTO&AUTO INC DIFRNTL WBC RADIOLOGI 55865 RADIOLOGY GARCIA BYR C EXAM 4 CHEST 2 ASSOCIATE VIEWS S OF NOTH FRONTAL&L ATERAL ECG 74125 ST HULLER ROUTINE 4 [facility] RAL ECG MED CTR W/LEAST 12 LDS I&R ONLY COLPOSCOP 71925 ST [place] Y CERVIX 4 [facility] AMA BX CERVIX & [place] [address] [place] BRIDGES SURG 4 [facility] ABHINAV PATHOLOGY MED CTR GROSS&ZAYRA ROSCOPIC EXAM URINE 89443 ST [place] 4 [facility] AMA TEST VISUAL PHYSICIAN COLOR S CMPRSN METHS BONE 95421 RADIOLOGY SCHMITTER MARROW 4 [place] BIOPSY ASSOCIATE NEEDLE/TR S OF NOT OCAR BLOOD 90446 ST KWAME DAKSHA SMEAR 4 [facility] PERIPHERA MED CTR L INTERP PHYS W/WRIT REPORT BONE [address] MARROW 4 [facility] SMEAR MED CTR MED CTR INTERPRET REGISTERED RESPIRATORY TECHNICIAN ST REGISTERED RESPIRATORY TECHNICIAN ST ATION INJECTION J3010 ST ST FENTANYL 4 [facility] CITRATE MED CTR MED CTR 0.1 MG REGISTERED RESPIRATORY TECHNICIAN ST REGISTER[place] [address] RADIOLOGY SCHMITTER GUIDANCE 4 [place] NEEDLE ASSOCIATE PLACEMENT S OF NOTH MODERATE 69966 RADIOLOGY SCHMITTER SEDATJ 4 [place] SAME ASSOCIATE PHYS/QHP S OF NOTH 5/>YRS INIT [address] ANALYZE 4 [facility] MED [facility] MED CTR CELLS REGISTERED RESPIRATORY TECHNICIAN ST REGISTERED RESPIRATORY TECHNICIAN ST BLOOD [address] COUNT 4 [facility] HORNER COMPLETE MED CTR MED CTR AUTO&AUTO REGISTERED RESPIRATORY TECHNICIAN ST REGISTERED RESPIRATORY TECHNICIAN ST DIFRNTL WBC GLUC BLD [address] GLUC MNTR 4 [facility] DEV MED CTR MED CTR CLEARED REGISTERED RESPIRATORY TECHNICIAN ST REGISTERED RESPIRATORY TECHNICIAN ST FDA SPEC HOME USE RADIOLOGI 13622 RADIOLOGY SCHMITTER C EXAM 4 GUL[place]AN CHEST 2 ASSOCIATE VIEWS S OF NOTH FRONTAL&[place] [address] SURG 4 [facility] HORNER PATHOLOGY MED CTR MED CTR REGISTERED RESPIRATORY TECHNICIAN ST REGISTERED RESPIRATORY TECHNICIAN ST GROSS&ZAYRA ROSCOPIC EXAM DECALCIFI [address] CATION 4 [facility] PROCEDURE MED CTR MED CTR REGISTERED RESPIRATORY TECHNICIAN ST REGISTERED RESPIRATORY TECHNICIAN ST IMHISTOCH [address] EM/CYTCHM 4 [facility] 1ST MED CTR MED CTR ANTIBODY REGISTERED RESPIRATORY TECHNICIAN ST REGISTERED RESPIRATORY TECHNICIAN ST STAIN PROCEDURE FLOW [address] CYTOMETRY 4 [facility] CELL MED CTR MED CTR SURF REGISTERED RESPIRATORY TECHNICIAN ST REGISTERED RESPIRATORY TECHNICIAN ST MARKER TECHL ONLY EA BN MARROW G0364 RADIOLOGY SCHMITTER ASPIR 4 GUL[place]AN PRFRM ASSOCIATE W/BX SAME S OF NOTH INCI SAME DOS FLOW [address] CYTOMETRY 4 [facility] CELL MED CTR MED CTR SURF REGISTERED RESPIRATORY TECHNICIAN ST REGISTERED RESPIRATORY TECHNICIAN ST MARKER TECHL ONLY 1ST TISS CUL [address] HAKAN 4 [facility] DISORDERS MED CTR MED CTR BONE REGISTERED RESPIRATORY TECHNICIAN ST REGISTERED RESPIRATORY TECHNICIAN ST MARROW BLOOD CELLS PRESSURIZ [address] ED/NONPRE 4 [facility] SSURIZED MED CTR MED CTR INHALATIO REGISTERED RESPIRATORY TECHNICIAN ST REGISTERED RESPIRATORY TECHNICIAN ST N TREATMENT FLOW 35214 ST KWAME DAKSHA CYTOMETRY 4 [facility] MED CTR INTERPRET ATION 16/> MARKERS SPCL STN [address] 2 I&R 4 [facility] EXCPT MED CTR MED CTR MICROORG/ REGISTERED RESPIRATORY TECHNICIAN ST REGISTERED RESPIRATORY TECHNICIAN ST ENZYME/IM CYT INJECTION J2270 ST ST MORPHINE 4 [facility] SULFATE MED CTR MED CTR UP TO [address]AT[address] TECHNIC[address] REGISTERED RESPIRATORY TECHNICIAN ST MG INJECTION J2250 ST ST 4 [facility] MIDAZOLAM MED CTR MED CTR HCL PER REGISTERED RESPIRATORY TECHNICIAN ST REGISTERED RESPIRATORY TECHNICIAN ST 1 MG BLD GLU A4253 LIBERATOR LIBERATOR TEST/REAG 4 MEDICAL MEDICAL T STRIPS SUPPLY SUPPLY HOME BLD INC INC GLU MON-[address] RIDDLE 6/>YRS 4 [facility]ENS JAM SLEEP 4/> MED CTR ADDL CHUY ATTND BLOOD 32321 ONCOLOGY ONCOLOGY COUNT 4 HEMATOLOG HEMATOLOG COMPLETE Y CARE Y CARE AUTO&[place] [address] RADIOLOGY BRANDSER ABDOMEN & 4 ESTHER PELVIS ASSOCIATE W/O S OF NOTH CONTRAST MATERIAL PURE TONE 90453 RUBINSTEI RUBINSTEI 4 N GULSHAN N GULSHAN AUDIOMETR Y AIR & BONE TYMPANOME 93915 SAWYERTEShun JACQUESTEShun TRY 4 N GULSHAN N GULSHAN EXCISION 38839 FOOT TIRONE NAIL 4 SPECIALIS LUIS ANGEL MATRIX TS OF PERMANENT GREATER REMOVAL SBSQ [address] IRF CARE/DAY 25 PHYSICIAN MINUTES S HOSPITAL [address] MANAGEMEN PHYSICIAN T 30 S MIN/< SBSQ [address] IRF CARE/DAY 35 PHYSICIAN MINUTES S SBSQ [address] CARE/DAY 25 PHYSICIAN MINUTES S SBSQ [address] CARE/DAY 25 PHYSICIAN MINUTES S SBSQ [address] IRF CARE/DAY 35 PHYSICIAN MINUTES S SBSQ [address] IRF CARE/DAY 35 PHYSICIAN MINUTES S SBSQ [address] IRF CARE/DAY 35 PHYSICIAN MINUTES S SBSQ [address] BREANNA CARE/DAY 25 PHYSICIAN MINUTES S SBSQ [address] BREANNA CARE/DAY 25 PHYSICIAN MINUTES S SBSQ [address] SOP CARE/DAY 25 PHYSICIAN MINUTES S INITIAL 12457 [facility] INPATIENT 4 [facility] BREANNA CONSULT NEW/ESTAB PHYSICIAN PT 80 S MIN INITIAL 37181 ONCOLOGY TERESITA CHR INPATIENT 4 HEMATOLOG CONSULT Y CARE NEW/ESTAB INC PT 80 MIN SBSQ [address] SOP CARE/DAY 25 PHYSICIAN MINUTES S INITIAL [address] CARE/DAY 70 PHYSICIAN MINUTES S CRITICAL 48953 EMERGENCY SELWYN CARE 4 CARE CHRIS ILL/INJUR PHYS ED [facility] PATIENT INIT 30-74 MIN RADIOLOGI 76710 RADIOLOGY TEMPLETON C 4 JAM EXAMINATI ASSOCIATE ON CHEST S OF NOT SINGLE VIEW FRONTAL CHIROPRAC 29170 SPERBECK SPERBECK TIC 4 MAR MAR MANIPULAT RACHEL TX SPINAL 3-[address] [facility] [address] DOUGLAS JAYESH DISCHARGE 4 [facility] DAY MANAGEMEN PHYSICIAN T 30 S MIN/< CHIROPRAC 71696 SPERBECK SPERBECK TIC 4 MAR MAR MANIPLTV TX EXTRASPIN AL 1/> REGION SBSQ [address] [facility] 4 [facility]/DAY 25 PHYSICIAN MINUTES S RADIOLOGI 10424 RADIOLOGY GARCIA BYR C EXAM 4 CHEST 2 ASSOCIATE VIEWS S OF NOT FRONTAL&L ATERAL CHIROPRAC 48550 SPERBECK SPERBECK TIC 4 MAR MAR MANIPULAT RACHEL [place] SPINAL 3-4 [facility] CHIROPRAC 71284 SPERBECK SPERBECK TIC 4 MAR MAR MANIPLTV TX EXTRASPIN AL 1/> REGION IAADIADOO 01419 ST DOUGLAS JAYESH 4 [facility]ENS INFLUENZA PHYSICIAN S IAADIADOO 424[address] ST DOUGLAS JAYESH 4 [facility]ENS STREPTOCO CCUS PHYSICIAN GROUP A S CHIROPRAC 67549 SPERBECK SPERBECK TIC 4 MAR MAR MANIPLTV TX EXTRASPIN AL 1/> REGION CHIROPRAC 32543 SPERBECK SPERBECK TIC 4 MAR MAR MANIPULAT RACHEL [place] SPINAL 3-4 [facility] EXCISION 46295 FOOT TIRONE NAIL 4 SPECIALIS LUIS ANGEL MATRIX TS OF PERMANENT GREATER REMOVAL INJECTION J2250 ST ST 4 [facility] MIDAZOLAM MED CTR MED CTR HCL PER REGISTERED RESPIRATORY TECHNICIAN ST REGISTERED RESPIRATORY TECHNICIAN ST [address] 4 [facility] ACETAMINO MED CTR MED CTR PHEN 10 REGISTERED [address]PIRATORY TECHNICIAN ST REGISTERED RESPIRATORY TECHNICIAN ST MG PRESSURIZ [address] ED/NONPRE 4 [facility] SSURIZED MED CTR MED CTR INHALATIO REGISTERED RESPIRATORY TECHNICIAN ST REGISTERED RESPIRATORY TECHNICIAN ST N TREATMENT ANES [address] XTRNL MID 4 [facility] & INNER MED CTR MED CTR EAR W/BX REGISTERED RESPIRATORY TECHNICIAN ST REGISTERED RESPIRATORY TECHNICIAN ST TYMPANOTO MY TYMPANOST [address] ELISHA 4 [facility] GENERAL MED CTR MED CTR ANESTHESI REGISTERED RESPIRATORY TECHNICIAN ST REGISTERED RESPIRATORY TECHNICIAN ST A URINE [address] [facility] MED CTR VISUAL REGISTERED RESPIRATORY TECHNICIAN ST REGISTERED RESPIRATORY TECHNICIAN ST COLOR CMPRSN METHS GLUC BLD [address] [facility] MNTR 4 [facility] MED CTR CLEARED REGISTERED RESPIRATORY TECHNICIAN ST REGISTERED RESPIRATORY TECHNICIAN ST FDA SPEC HOME USE INJECTION J1100 ST [facility] CTR SONE REGISTERED RESPIRATORY TECHNICIAN ST REGISTERED RESPIRATORY TECHNICIAN ST SODIUM PHOSPHATE [address] HYDROCORT 4 [facility] IS[facility] MED CTR SODIUM REGISTERED RESPIRATORY TECHNICIAN ST REGISTERED RESPIRATORY TECHNICIAN ST SUCCINATE TO [address] [facility] ONDAN[facility]R [facility] MED CTR ON HCL REGISTERED RESPIRATORY TECHNICIAN ST REGISTERED RESPIRATORY TECHNICIAN ST [place] 1 [place] [address] PROLACTIN 4 [place] [address] TESTOSTER 4 [facility] ONE TOTAL FT FT HU LUI GONADOTRO [address] PIN 4 [facility] LUTEINIZI FT FT NG HU HU HORMONE GONADOTRO [address] PIN 4 [facility] FOLLICLE FT [place] [address] RADIOLOGY PATRIA TRANSVAGI 4 ATT NAL ASSOCIATE S OF [facility] COLLECTIO [address] N VENOUS 4 [facility] BLOOD FT FT VENIPUNCT HU LUI URE US PELVIC 65856 RADIOLOGY PATRIA 4 ATT NONOBSTET ASSOCIATE SHAUN S OF [facility] REAL-TIME IMAGE COMPLETE CHIROPRAC 87229 SPERBECK SPERBECK TIC 4 MAR MAR MANIPLTV TX EXTRASPIN AL 1/> REGION CHIROPRAC 18971 SPERBECK SPERBECK TIC 4 MAR MAR MANIPULAT RACHEL [place] SPINAL 3-4 [facility] [place] BRAIN [address] BRAIN 4 [facility] CHOUTH STEM W/O LI LI W/CONTRAS T MATERIAL INJ A[address] GADOBENAT 4 [facility] EV[facility] E LI LI DIMEGLUMI NE MULTIHANC E PER ML CHIROPRAC 77687 SPERBECK SPERBECK TIC 4 MAR MAR MANIPLTV TX EXTRASPIN AL 1/> [facility] MEDICAL [address] ST NETO WAE NUTRITION 4 [facility] THERAPY GRP2/ PHYSICIAN INDIV EA S 30 NM CHIROPRAC 31119 SPERBECK SPERBECK TIC 4 MAR MAR MANIPULAT RACHEL [place] SPINAL 3-[address] TION RATE 4 [facility] HORNER RBC LI LI AUTOMATED CREATININ [address] E BLOOD 4 [facility] CHOUTH LI LI HEMOGLOBI [address] N 4 [facility] HORNER GLYCOSYLA LI LI ANDERS A1C CT SOFT 80796 RADIOLOGY GARCIA BYR TISSUE 4 NECK ASSOCIATE W/CONTRAS S OF NOTH T MATERIAL LOCM Q9967 ST. ST. 300-399 4 [facility] HORNER MG/ML LI LI IODINE CONCENTRA TION PER ML BLOOD [address] COUNT 4 [facility] OHRNER COMPLETE LI LI AUTOMATED CYTP 29301 ST [place] DON CERVICAL/ 4 [facility] VAGINAL MED CTR REQ INTERP PHYSICIAN CYTP C/V [address] AUTO THIN 4 [facility] HORNER LYR MED CTR MED CTR PREPJ SCR REGISTERED RESPIRATORY TECHNICIAN ST REGISTERED RESPIRATORY TECHNICIAN ST MNL RESCR PHYS BLD GLU A4253 LIBERATOR LIBERATOR TEST/REAG 4 MEDICAL MEDICAL T STRIPS SUPPLY SUPPLY HOME BLD INC INC GLU MON-50 NORMAL A4256 LIBERATOR LIBERATOR LOW AND 4 MEDICAL MEDICAL HIGH SUPPLY SUPPLY CALIBRATO INC INC R SOLUTION/ CHIPS LANCETS A4259 LIBERATOR LIBERATOR PER BOX 4 MEDICAL MEDICAL OF 100 SUPPLY SUPPLY INC INC [facility] BR[facility]EC 13577 SPERBECK SPERBECK TIC 4 MAR MAR MANIPLTV TX EXTRASPIN AL 1/> [facility] A4258 LIBERATOR LIBERATOR WERED 4 MEDICAL CURATOR OF MANUSCRIPTS SUPPLY SUPPLY FOR INC INC LANCET EACH CHIROPRAC 48650 SPERBECK SPERBECK TIC 4 MAR MAR MANIPULAT RACHEL TX SPINAL 3-[address] [address] NETO WAE &TRAINING 4 [facility]ENS SELF-MGMT PHYSICIAN NONPHYS S 1 PT CHIROPRAC 68932 SPERBECK SPERBECK TIC 4 MAR MAR MANIPLTV TX EXTRASPIN AL 1/> REGION CHIROPRA 28434 SPERBECK SPERBECK TIC 4 MAR MAR MANIPULAT RACHEL [place] SPINAL 3-4 REGIONS TYMPANOME 05319 RUBINSTEI RUBINSTEI TRY 4 N GULSHAN N GULSHAN PURE TONE 59263 RUBINSTEI RUBINSTEI 4 N GULSHAN N GULSHAN AUDIOMETR Y AIR & BONE CHIROPRAC 27563 SPERBECK SPERBECK TIC 4 MAR MAR MANIPULAT RACHEL [place] SPINAL 3-4 REGIONS CHIROPRA 97340 SPERBECK SPERBECK TIC 4 MAR MAR MANIPLTV TX EXTRASPIN AL 1/> REGION CHIROPRAC 70085 SPERBECK SPERBECK TIC 4 MAR MAR MANIPLTV TX EXTRASPIN AL 1/> REGION CHIROPRAC 31694 SPERBECK SPERBECK TIC 4 MAR MAR MANIPULAT RACHEL [place] SPINAL 3-4 REGIONS CHIROPRAC 61726 SPERBECK SPERBECK TIC 4 MAR MAR MANIPULAT RACHEL [place] SPINAL 3-4 REGIONS CHIROPRAC 83799 SPERBECK SPERBECK TIC 4 MAR MAR MANIPLTV TX EXTRASPIN AL 1/> REGION CHIROPRAC 77906 SPERBECK SPERBECK TIC 4 MAR MAR MANIPLTV TX EXTRASPIN AL 1/> REGION CHIROPRA 99045 SPERBECK SPERBECK TIC 4 MAR MAR MANIPULAT RACHEL [place] SPINAL 3-4 REG[facility] CHIROPRA 19777 SPERBECK SPERBECK TIC 4 MAR MAR MANIPULAT RACHEL [place] SPINAL 3-4 REGIONS CHIROPRA 74845 SPERBECK SPERBECK TIC 4 MAR MAR MANIPLTV TX EXTRASPIN AL 1/> REGION CHIROPRA 46791 SPERBECK SPERBECK TIC 4 MAR MAR MANIPLTV TX EXTRASPIN AL 1/> REGION CHIROPRA 66945 SPERBECK SPERBECK TIC 4 MAR MAR MANIPULAT RACHEL [place] SPINAL 3-4 REGIONS SBSQ 50924 [facility] 4 DEXTER BREANNA CARE/DAY 25 PHYSICIAN MINUTES S SBSQ [address] BREANNA CARE/DAY 35 PHYSICIAN MINUTES S SBSQ 01296 [facility] 4 DEXTER FINA CARE/DAY 25 PHYSICIAN MINUTES S CENTRAL 3897 ST VENOUS 4 [facility] CATHETER FT FT PLACEMENT HU LUI [facility] GUID[facility] 79715 [facility] 4 DEXTER YEAR LAT CARE/DAY 35 PHYSICIAN MINUTES S NON-INVAS [address]390 ST RACHEL 4 [facility] MECHANICA FT FT L HU LUI VENTILATI ON INITIAL 32305 [facility] INPATIENT 4 [facility] FINA CONSULT NEW/ESTAB PHYSICIAN PT 80 S MIN RADIOLOGI 24450 RADIOLOGY NEILS ESTHER C EXAM 4 CHEST 2 ASSOCIATE VIEWS S OF NOTH FRONTAL&L ATERAL OPHTH 59526 [facility] 8 JR, JR, XM&EVAL LISA BELLO NEW PT 1/> VST DETERMINA 11610 JACQUE SANTILLAN TION 8 JR, JR, REFRACTIV LISA Yuan [facility] PRESSURIZ 99903 URGENT ANCIRO, ED/NONPRE 8 MEDICAL ZAHRA SSURIZED CARE INHALATIO N TREATMENT RADIOLOGI 79051 [facility] 8 VILLAV, E EXAMINATI RADIOLOGY A ON CHEST ASSOC SINGLE VIEW FRONTAL URNLS DIP 28552 LAB FAZAL LAB FAZAL 8 AMERIC AMERIC STICK/TAB 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 Quang BLANDON & Ingrid BAILEY SUBCUTANE OUS NEC Encounters Encounter Start End Date Code Location Performer Type Date [facility] ST[facility] - 7 7 [facility] INPATIENT [place] OFFICE 37786 [facility] 7 7 [facility] T VISIT 15 PHYSICIAN MINUTES S OFFICE 78276 [facility] 7 7 [facility] T VISIT 15 PHYSICIAN MINUTES [facility] ST 7 7 [facility] OUTPATIEN T [facility] EDGE EMERGENCY 95850 [facility] 7 7 [facility] DEPARTMEN LI T VISIT LOW/MODER [facility] - 7 7 [facility] OUTPATIEN LI T OFFICE 85428 [facility] 7 7 [facility] T NEW 45 MINUTES PHYSICIAN S OFFICE 50301 [facility] 7 7 [facility] YEAR T VISIT 15 PHYSICIAN MINUTES [facility] ST 7 7 [facility] OUTPATIEN T [facility] 37254 [facility] 7 7 [facility] T VISIT 25 PHYSICIAN MINUTES S EMERGENCY 41482 [facility] 7 7 [facility] T VISIT HIGH/URGE NT SEVERITY H[facility]PITAL LUIS MANUEL - 7 7 [facility] - 7 7 [facility] OUTPATIEN T [facility] EDGE EMERGENCY 52239 ST. 7 7 [facility] T VISIT [facility] - 7 7 [facility] ST - 7 7 [facility] INPATIENT [facility]ALTH[facility] EDGE EMERGENCY 41768 [facility] MANUEL 7 7 [facility] T VISIT [facility] LUIS MANUEL - 7 7 [facility] 17290 [facility] OUTPATIEN 6 6 [facility] YEAR LAT T VISIT 15 PHYSICIAN MINUTES [facility] ST - 6 6 [facility] OUTPATIEN MED CTR T REGISTERED RESPIRATORY TECHNICIAN ST EMERGENCY 46271 ST 6 6 [facility] T VISIT REGISTERED RESPIRATORY TECHNICIAN HIGH/URGE NT SEVERITY [facility] ST - 6 6 [facility] INPATIENT MED CTR REGISTERED RESPIRATORY TECHNICIAN ST OFFICE 85829 [facility] 6 6 [facility] GRE T VISIT 15 PHYSICIAN [address] [facility] - 6 6 [facility] REGISTERED RESPIRATORY TECHNICIAN ST OFFICE 23525 [facility] 6 6 [facility] T VISIT [address] - 6 6 [facility] OUT[facility] JULIO T OFFICE 16178 [facility] 6 6 [facility] T VISIT [address] [facility] - 5 5 [facility] T REGISTERED RESPIRATORY TECHNICIAN ST EMERGENCY 17291 ST 5 5 [facility] T VISIT REGISTERED RESPIRATORY TECHNICIAN ST MODERATE SEVERITY OFFICE 79995 [facility] OUTPATIEN 5 5 N [place] N [facility] T VISIT [address] - 5 5 [facility] T [facility]ALTHCAR E EDGE OFFICE 88965 R[facility]INSTEI RUBINSTEI OUTPATIEN 5 5 N [place] N [facility] T VISIT [address] [facility] OUTPATIEN 4 4 [facility] REGAN T VISIT 15 PHYSICIAN MINUTES S OFFICE 71848 FO[facility] TIRONE OUTPATIEN 4 4 SPECIALIS LUIS ANGEL T VISIT TS OF 15 GREATER MINUTES OFFICE 257[address] ST HERMILL[facility] OUTPATIEN 4 4 [facility] GIANNA T VISIT [address] ACCESS 4 4 LI OFFICE 08040 FOOT TIRONE OUTPATIEN 4 4 SPECIALIS LUIS ANGEL T VISIT TS OF 15 GREATER MINUTES EMERGENCY 34132 ST. 4 4 [facility] DEPARTMEN LI T VISIT MODERATE SEVERITY CRITICAL ST. ACCESS [address] [facility] OUTPATIEN 4 4 [facility] YEAR LAT T VISIT 25 PHYSICIAN MINUTES S OFFICE [address] [facility] OUTPATIEN 4 4 [facility] JAM T VISIT MED CTR [address] - OTHER 4 4 [facility] REGISTERED RESPIRATORY TECHNICIAN ST OFFICE 95669 [facility] OUTPATIEN 4 4 [facility] REGAN T VISIT 25 PHYSICIAN MINUTES S OFFICE 69810 ST [facility] CONSULTAT 4 4 [facility] GIANNA ION NEW/ESTAB PHYSICIAN PATIENT S 60 MIN OFFICE 98188 RUBINSTEI RUBINSTEI OUTPATIEN 4 4 N [place]UL[place] N GULSHAN T VISIT 40 MINUTES OFFICE 93721 RUBINSTEI RUBINSTEI OUTPATIEN 4 4 N [place]UL[place] N GULSHAN T VISIT [address] AGUILAR MAR OUTPATIEN 4 4 [facility] T NEW 45 MINUTES PHYSICIAN S EMERGENCY 50660 ST GALLATIN 4 4 [facility] DUSTIN DEPARTMEN T VISIT PHYSICIAN MODERATE S SEVERITY EMERGENCY 56592 EMERGENCY SELWYN DEPT 4 4 CARE CHIRS VISIT PHYS HIGH NORTHERN SEVERITY& THREAT [facility] ST - 4 4 [facility] OUTPATIEN FT T HU OFFICE 92381 ONCOLOGY TERESITA CHR OUTPATIEN 4 4 HEMATOLOG T VISIT Y CARE 15 INC MINUTES EMERGENCY 64879 ST DANN[facility] 4 4 [facility] HOL DEPARTMEN MED CTR T VISIT HIGH/URGE NT SEVERITY OFFICE 218[address] [facility] OUTPATIEN 4 4 [facility] JAM T VISIT MED CTR [address] BUDBRADLEYI OUTPATIEN 4 4 [facility] IRF T VISIT [address] - 4 4 [facility] CTR T REGISTERED RESPIRATORY TECHNICIAN [facility] - 4 4 [facility] T REGISTERED RESPIRATORY TECHNICIAN OFFICE 84282 FOOT TIRONE OUTPATIEN 4 4 SPECIALIS LUIS ANGEL T VISIT TS OF 15 GRE[address] - 4 4 [facility] OUTPATIEN FT T HU OFFICE 50575 ONCOLOGY TERESITA CHR OUTPATIEN 4 4 HEMATOLOG T VISIT Y CARE 25 INC MINUTES OFFICE 92769 RUBINSTEI RUBINSTEI OUTPATIEN 4 4 N GULSHAN N GULSHAN T VISIT 40 MINUTES EMERGENCY 32680 EMERGENCY LE HIE DEPT 4 4 CARE VISIT PHYS HIGH NORTHERN SEVERITY& THREAT FUNCJ EMERGENCY 49132 EMERGENCY SHAE HO DEPT 4 4 CARE VISIT PHYS HIGH NORTHERN SEVERITY& THREAT FUNCJ EMERGENCY 72814 EMERGENCY [facility] JESUS 4 4 CARE DEPARTMEN PHYS T VISIT NORTHERN HIGH/URGE NT SEVERITY OFFICE 43801 ST [facility] JAYESH OUTPATIEN 4 4 [facility] T VISIT 25 PHYSICIAN MINUTES S OFFICE 65507 [facility] CONSULTAT 4 4 [facility] JAM ION [facility] NEW/ESTAB PATIENT [address] - 4 4 [facility]PAT[facility] T [facility] - 4 4 [facility] OUT[facility]IEN [facility] ST. - 4 4 [facility] OUTPATIEN LI T OFFICE 87127 [facility] JAY[facility] OUTPATIEN 4 4 [facility] VISIT [address] - 4 4 [facility] LI T INITIAL [id number] [facility] VIOLET PREVENTIV 4 4 [facility] MEDICINE PHYSICIAN NEW PT S AGE [id number] [facility] - 4 4 [facility] T REGISTERED RESPIRATORY TECHNICIAN OFFICE [id number] FOOT TIRONE OUTPATIEN 4 4 SPECIALIS LUIS ANGEL T NEW 30 TS OF MINUTES GREATER OFFICE 73205 RUBINSTEI RUBINSTEI OUTPATIEN 4 4 N GULSHAN N GULSHAN T NEW [address]ES [address] DOUGLAS JAYESH OUTPATIEN 4 4 [facility] T NEW 45 MINUTES PHYSICIAN S OFFICE 87609 SILVIANO HUNTRBECK OUTPATIEN 4 4 MAR MAR T NEW [address] - 4 4 [facility] EMERGENCY 25812 EMERGENCY DAVREN DEPT 4 4 CARE ESTHER VISIT PHYS HIGH [facility] SEVERITY& THREAT [facility] Emergency JAYSON Quintero MD (ER) 3 18:09 3 23:50 [facility] Emergency JAYSON Quintero MD (ER) 3 22:37 3 22:51 [facility] Emergency JAYSON Quintero MD (ER) 3 20:08 3 22:59 [facility] Emergency JAYSON Quintero MD (ER) 3 03:48 3 05:48 [facility] OFFICE [id number] URGENT ANCIRO, OUTPATIEN 8 8 MEDICAL ZAHRA T NEW 30 CARE MINUTES EMERGENCY 00683 [facility], 8 8 [facility] V[facility] PHYS INC HIGH/URGE NT [facility] - 8 8 CUMBERLAN OUTPATIEN D T [facility] OFFICE 28077 JAMES HINSON OUTPATIEN 8 8 CLINIC , T VISIT [facility] 15 D MINUTES
--- OUTSIDE RECORDS SUMMARY | 2017-05-08 20:37 | External Medical Summary Rpt | CCD ---
Author Author , KENDALL Organization KENDALL Address Unknown Phone [email or web address] Care Team Providers Care Flume Maker Name Role Phone FELIX DEL VALLE, Unavailable Unavailable FELIX DEL VALLE ANCIRO, ZAHRA, Unavailable Unavailable ANCIRO, ZAHRA BANKERS [...] Unavailable Unavailable [facility] BARRETO, ZAHRA R, Unavailable Unavailable BARRETO, ZAHRA R FERTIKH ELIGIO, FERTIKH Unavailable Unavailable ELIGIO DOUGLAS JAYESH, DOUGLAS JAYESH Unavailable Unavailable [facility] Unavailable Unavailable [facility], [facility] DUSTIN, Unavailable Unavailable [facility] HEDRICK-VILLAV, E A, Unavailable Unavailable HEDRICK-VILLAV, E A YOKASTA, YOKASTA Unavailable Unavailable [facility] Un[facility] Un[facility], [facility] NORBERT KATZ, Unavailable Unavailable VENTURA WHEAT Unavailable Unavailable IZABELLA KLANKE JUS, KLANKE Unavailable Unavailable JUS [facility], Unavailable Unavailable [facility] Unavailable Unavailable [facility], [facility] LE HIE, LE HIE Unavailable Unavailable [facility] Unavailable [facility] SANJIV FINA, SANJIV Unavailable Unavailable FINA KWAME DAKSHA, KWAME DAKSHA Unavailable Unavailable GARCIA BYR, GARCIA BYR Unavailable Unavailable RIDDLE JAM, RIDDLE Unavailable Unavailable JAM MEDEYINLO BREANNA, Unavailable Unavailable MEDEYINLO BREANNA MILES PAT, MILES PAT Unavailable Unavailable BRO BRA, BRO Unavailable Unavailable BRA XIMENA TONY, XIMENA Unavailable Unavailable TONY AGUILAR MAR, AGUILAR MAR Unavailable Unavailable ROBER TONY, ROBER Unavailable Unavailable TONY CONKLIN ZAYRA, CONKLIN Unavailable Unavailable ZAYRA MUSSMAN ADA, MUSSMAN Unavailable Unavailable ADA NEILS ESTHER, NEILS ESTHER Unavailable Unavailable [facility] Unavailable Unavailable LAB, [facility], Unavailable Unavailable [facility], Unavailable Unavailable [facility] HUNTER SOP, HUNTER Unavailable Unavailable [facility] Unavailable Unavailable OF [facility], [facility] ANN-MARIE SANTILLAN JR, WILLIAM Unavailable JACQUE Markham JR, LISA Yuan [facility], Unavailable Unavailable [facility] ANA GULSHAN, Unavailable Unavailable ANA GULSHAN ANA GULSHAN, Unavailable Unavailable ANA GULSHAN TERESITA CHR, TERESITA CHR Unavailable Unavailable TEMPLETON CHR, TEMPLETON Unavailable Unavailable CHR TEMPLETON JAM, TEMPLETON Unavailable Unavailable JAM SCHMITTER GULSHAN, Unavailable Unavailable SCHMITTER GULSHAN SILVIA TONY, SILVIA TONY Unavailable Unavailable SHARP JESUS, SHARP JESUS Unavailable Unavailable SELWYN CHRIS, Unavailable Unavailable SELWYN CHRIS [facility], Unavailable Unavailable [facility], Unavailable Unavailable [facility] Unavailable Unavailable [facility] Unavailable Unavailable [facility], Unavailable Unavailable [facility] Unavailable Unavailable EDITOR IN CHIEF NEWSPAPER [facility] EDITOR IN CHIEF NEWSPAPER [facility] Unavailable [facility]available PH[facility]ICIANS, [facility] Un[facility] Un[facility], . [facility] . [facility] Un[facility] PH[facility]ICIANS, [facility] TANGVALD IV THO, Unavailable Unavailable [facility] TH[facility] T[facility] TH[facility], Unavailable Unavailable TANGVALD IV THO [facility] Unavailable Unavailable MEDICAL, [facility] TIRONE LUIS ANGEL, TIRONE Unavailable Unavailable [facility] Unavailable Unavailable [facility], [facility] VON HOENE AMA, VON Unavailable Unavailable HOENE AMA CATIA PHI, Unavailable Unavailable [facility] PHI ELISEO BARDALES, Unavailable Unavailable ELISEO BARDALES WORLEY Unavailable Unavailable FARHEEN CAM, FARHEEN Unavailable Unavailable [facility], LARRY Unavailable Unavailable D, MOEAST, LARRY D SHAE HO, SHAE HO Unavailable Unavailable Purpose Continuity of Care Document - 06-12-2008 through 2016 Problems Code Diagnosis DOS Provider Status D649 ANEMIA 11-24-2016 ST. UNSPECIFIED [facility] JULIO [...] G894 CHRONIC 11-20-2016 PAIN [facility] SYNDROME PHYSICIANS [id number] PAIN IN 11-20-2016 RIGHT FOOT [facility] E1142 TYPE 2 11-18-2016 ST. DIABETES [facility] MELLITUS PHYSICIANS W/DIAB POLYNEUROPA THY E790 HYPERURICEM 11-18-2016 ST. IA W/O [facility] SIGNS IA & PHYSICIANS TOPHACEOUS DISEASE [id number] CHRONIC 11-18-2016 . GOUT [facility] UNSPECIFIED PHYSICIANS WITH TOPHUS J4550 SEVERE 10-23-2016 PERSISTENT [facility] UNCOMPLICAT EDGE ED E1140 TYPE 2 DM 09-20-2016 . WITH [facility] DIABETIC LI NEUROPATHY UNSPECIFIED G8929 OTHER 09-20-2016 . CHRONIC [facility] PAIN LI J449 CHRONIC 09-20-2016 . OBSTRUCTIVE [facility] PULMONARY LI DISEASE UNS Z18692 UNSPECIFIED 09-20-2016 ST. ASTHMA [facility] UNCOMPLICAT LI ED K219 GASTRO-ESOP 09-20-2016 ST. H REFLUX [facility] DISEASE LI WITHOUT ESOPHAGITIS R1084 GENERALIZED 09-20-2016 ST. ABDOMINAL [facility] PAIN LI R112 NAUSEA WITH 09-20-2016 ST. VOMITING [facility] UNSPECIFIED LI R197 DIARRHEA 09-20-2016 ST. UNSPECIFIED [facility] LI D90984 PAIN IN 09-18-2016 LEFT FOOT [facility] PH[facility]ICIANS R1011 RIGHT UPPER 09-18-2016 QUADRANT [facility] PAIN PHYSICIANS Z6844 BODY MASS 09-18-2016 ST INDEX BMI [facility] 60.0-69.9 PHYSICIANS ADULT L98505 OTHER LONG 09-18-2016 TERM [facility] CURRENT PHYSICIANS DRUG THERAPY E669 OBESITY 09-17-2016 UNSPECIFIED [facility] PHYSICIANS G4733 OBSTRUCTIVE 09-17-2016 SLEEP [facility] APNEA ADULT PHYSICIANS PEDIATRIC E1169 TYPE 2 09-09-2016 DIABETES [facility] MELLITUS [facility]CARE W/OTH SPEC EDGE COMPLICATIO N E229 HYPERFUNCTI 09-09-2016 ST ON OF [facility] GLAND EDGE UNSPECIFIED E785 HYPERLIPIDE 09-09-2016 TIFFANIE [facility] UNSPECIFIED HEALTHCARE EDGE Z794 CERTIFIED TECHNICIAN 09-09-2016 CURRENT USE [facility] OF INSULIN HEALTHCARE EDGE E242 DRUG-INDUCE 08-21-2016 D CUSHINGS [facility] SYNDROME PHYSICIANS E1165 TYPE 2 08-15-2016 [facility] MELLITUS INC WITH HYPERGLYCEM IA R1111 VOMITING 08-15-2016 [facility] WITHOUT [facility] NAUSEA INC R162 HEPATOMEGAL 08-15-2016 [facility] Y WITH [facility] SPLENOMEGAL INC Y NEC [id number] UNSPECIFIED 08-04-2016 . SPRAIN [facility] RIGHT FOOT LI INITIAL ENCOUNTER Z6843 BODY MASS 08-04-2016 ST. INDEX BMI [facility] 50-59.9 LI ADULT Z7984 CERTIFIED TECHNICIAN 08-04-2016 ST. USE OF ORAL [facility] LI HYPOGLYCEMI C DRUGS F29798 PERSONAL 08-04-2016 ST. HISTORY OF [facility] NICOTINE LI DEPENDENCE J4551 SEVERE 07-23-2016 ST PERSISTENT [facility]MA WITH HEALTHCARE ACUTE EDGE EXACERBATIO N J9601 ACUTE 07-23-2016 RESPIRATORY [facility] FAILURE HEALTHCARE WITH EDGE HYPOXIA K7581 NONALCOHOLI 07-23-2016 C [facility] STEATOHEPAT HEALTHCARE ITIS EDGE A68441 UNSPECIFIED 05-29-2016 ASTHMA [facility] WITH ACUTE PHYSICIANS EXACERBATIO N J9691 RESPIRATORY 11-25-2015 FAILURE [facility] UNSPECIFIED MED CTR EDITOR IN CHIEF NEWSPAPER WITH ST HYPOXIA Z9981 DEPENDENCE 10-09-2015 ST ON [facility] SUPPLEMENTA MED CTR EDITOR IN CHIEF NEWSPAPER L OXYGEN ST W56870 OTHER 09-24-2015 ASTHMA [facility] PHYSICIANS R079 CHEST PAIN 09-24-2015 ST UNSPECIFIED [facility] PHYSICIANS R609 EDEMA 09-24-2015 UNSPECIFIED [facility] PH[facility]IANS R51 HEADACHE 09-04-2015 . [facility] JULIO K8050 CALCULUS BD 07-23-2015 W/O [facility] CHOLANGITIS PHYSICIANS /CHOLECYST W/O OBST 46723 DIAB W/O 01-01-2015 [facility] COMP TYPE MEDICAL II/UNS TYPE UNCNTRL 2518 OTH SPEC 01-01-2015 [facility] PANCREATIC MEDICAL INTERNAL SECRETION V5865 LONG-TERM 01-01-2015 [facility] USE OF HOSPITAL STEROIDS MEDICAL V5867 LONG-TERM 01-01-2015 [facility] USE OF HOSPITAL INSULIN MEDICAL 81737 OBSTRUCTIVE 12-22-2014 [facility] APNEA ASSOCIAT 46456 ASTHMA 12-22-2014 [facility] UNSPECIFIED PULMONARY WITH ASSOCIAT EXACERBATIO N 40794 HYPOXEMIA 12-22-2014 [facility] 3813 OTHER&UNSPE 11-13-2014 ANA C CHRONIC GULSHAN NONSUPPURAT RACHEL OTITIS MEDIA 77102 UNSPECIFIED 11-13-2014 ANA GULSHAN TEMPOROMAND IBULAR JOINT DISORDERS 3829 UNSPECIFIED 09-26-2014 ST OTITIS [facility] MEDIA HEALTHCARE EDGE 60728 HYPERTROPHY 09-26-2014 ST OF [facility] ADENOIDS HEALTHCARE ALONE EDGE 4760 CHRONIC 09-26-2014 ST LARYNGITIS [facility] EDGE 4785 OTHER 09-26-2014 ST DISEASES OF [facility] VOCAL HEALTHCARE CORDS EDGE 490 BRONCHITIS 09-26-2014 NOT [facility] SPECIFIED HEALTHCARE ACUTE OR EDGE CHRONIC 06664 DYSPHONIA 09-26-[address] [facility] [facility] EDGE 53428 DYSPHAGIA 09-26-2014 ST UNSPECIFIED [facility] EDGE 73084 CHRONIC 09-22-2014 ANA ADENOIDITIS GULSHAN 74542 MORBID 08-23-2014 PATIENT [facility] 20995 CHRONIC 08-23-2014 PATIENT OBSTRUCTIVE AIDS INC [facility]MA UNSPECIFIED 586 UNSPECIFIED 08-23-2014 PATIENT RENAL [facility] FAILURE 2550 CUSHINGS 07-04-2014 SYNDROME [facility] PHYSICIANS 4629 UNSPECIFIED 07-04-2014 VITAMIN D [facility] DEFICIENCY PHYSICIANS 4019 UNSPECIFIED 07-04-2014 ESSENTIAL [facility] HYPERTENSIO PHYSICIANS N V5869 LONG-TERM 07-04-2014 (CURRENT) [facility] USE OF PHYSICIANS OTHER MEDICATIONS 7038 OTHER 06-13-2014 FOOT SPECIFIED SPECIALISTS DISEASE OF OF GREATER NAIL 7295 PAIN IN 06-13-2014 FOOT SOFT SPECIALISTS TISSUES OF OF GREATER LIMB 45100 OTHER 06-13-2014 FOOT DISORDERS SPECIALISTS OF BONE AND OF GREATER CARTILAGE OTHER 96969 UNSPECIFIED 06-13-2014 FOOT SITE OF SPECIALISTS ANKLE OF GREATER SPRAIN AND STRAIN 11800 DIAB W/O 05-14-2014 ST. COMP TYPE [facility] II/UNS NOT LI STATED UNCNTRL 98061 ESOPHAGEAL 05-14-2014 ST. REFLUX [facility] LI V148 PERSONAL 05-14-2014 ST. HISTORY [facility] ALLERGY OTH LI SPEC MEDICINAL AGTS V1507 PERSONAL 05-14-2014 ST. HISTORY OF [facility] ALLERGY TO LI LATEX V1582 PERS HX 05-14-2014 ST. TOBACCO USE [facility] PRESENTING LI [facility] [employer] 01813 DIAB 05-05-2014 FOOT W/NEURO SPECIALISTS MANIFESTS OF GREATER TYPE II/UNS NOT UNCNTRL 21790 UNSPECIFIED 05-05-2014 FOOT CELLULITIS SPECIALISTS AND OF GREATER ABSCESS OF TOE 7068 OTHER 05-05-2014 FOOT SPECIFIED SPECIALISTS DISEASE OF OF GREATER SEBACEOUS GLANDS 75294 ASTHMA, 04-18-2014 ST. UNSPECIFIED [facility] , LI UNSPECIFIED STATUS 07217 UNSPECIFIED 04-18-2014 ST. SLEEP [facility] APNEA LI V8543 BODY MASS 04-18-2014 ST. INDEX [facility] 50.0-59.9 LI ADULT 1120 CANDIDIASIS 04-12-2014 ST OF MOUTH [facility] PHYSICIANS V5889 ENCOUNTER 04-12-2014 ST FOR OTHER [facility] SPECIFIED PHYSICIANS AFTERCARE V8544 BODY MASS 04-12-2014 INDEX [facility] 60.0-69.9 PHYSICIANS ADULT 6202 OTHER AND 02-08-2014 RADIOLOGY UNSPECIFIED ASSOCIATES OVARIAN OF [facility] CYST 50471 DEHYDRATION 02-06-2014 ST [facility] PHYSICIANS 76767 LEUKOCYTOSI 02-06-2014 S [facility] UNSPECIFIED PHYSICIANS 5849 ACUTE 02-06-2014 KIDNEY [facility] FAILURE PHYSICIANS UNSPECIFIED 5939 UNSPECIFIED 02-06-2014 RADIOLOGY DISORDER ASSOCIATES OF KIDNEY OF [facility] AND URETER 02590 NAUSEA WITH 02-06-2014 VOMITING [facility] PHYSICIANS 08424 NAUSEA 02-06-2014 RADIOLOGY ALONE ASSOCIATES OF [facility] 62641 ABDOMINAL 02-06-2014 PAIN RIGHT [facility] UPPER PHYSICIANS QUADRANT 7891 HEPATOMEGAL 02-06-2014 RADIOLOGY Y ASSOC[facility]ATES OF [facility] 68796 SHORTNESS 01-16-2014 RADIOLOGY OF BREATH ASSOCIATES OF [facility] 17317 WHEEZING 01-02-2014 [facility] ANI 83093 OTHER 01-02-2014 [facility] ANI DYSPNEA AND RESPIRATORY ABNORMALITI ES 7945 NONSPECIFIC 12-26-2013 ABNORM [facility] RESULTS PHYSICIANS THYROID FUNCT STUDY 5259 UNSPECIFIED 11-27-2013 DISORDER [facility] TEETH&SUPPO PHYSICIANS RTING STRUCTURES 60968 OTHER 11-22-2013 EMERGENCY SPECIFIED CARE PHYS CARDIAC [facility] DYSRHYTHMIA S 4779 ALLERGIC 11-17-2013 RHINITIS [facility] CAUSE FT HU UNSPECIFIED 4660 ACUTE 11-13-2013 BRONCHITIS [facility] MED CTR 49837 GENERALIZED 11-10-2013 TANGVALD IV ANXIETY THO DISORDER 0794 HUMAN 11-07-2013 PAPILLOMA [facility] VIRUS IN MED CTR EDITOR IN CHIEF NEWSPAPER CCE & UNS ST SITE 15470 MILD 11-07-2013 DYSPLASIA [facility] OF [facility] MED CTR EDITOR IN CHIEF NEWSPAPER ST 16173 PAP SMER 11-07-2013 CERV W/LW [facility] GRADE PHYSICIANS SQUAMOUS INTRAEPITH LES 6769 UNSPECIFIED 11-01-2013 ANEMIA [facility] MED CTR EDITOR IN CHIEF NEWSPAPER ST 7867 ABNORMAL 11-01-2013 RADIOLOGY CHEST ASSOCIATES SOUNDS OF [facility] 5718 OTHER 10-21-2013 RADIOLOGY CHRONIC ASSOCIATES NONALCOHOLI OF [facility] C LIVER DISEASE 99117 ABDOMINAL 10-21-2013 RADIOLOGY PAIN, ASSOCIATES UNSPECIFIED OF [facility] SITE 01550 ABDOMINAL 10-20-2013 EMERGENCY PAIN OTHER CARE PHYS SPECIFIED [facility] SITE 1101 DERMATOPHYT 10-06-2013 FOOT OSIS OF SPECIALISTS NAIL OF GREATER 486 PNEUMONIA, 10-05-2013 ST ORGANISM [facility] UNSPECIFIED PHYSICIANS 15307 CHEST PAIN 09-25-2013 RADIOLOGY UNSPECIFIED ASSOCIATES OF [facility] 69707 DISPLCMT 09-22-2013 [facility] LUMBAR MAR 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 7233 CERVICOBRAC 09-22-2013 [facility] HIAL MAR SYNDROME 8398 CLOSED 09-22-2013 [facility] DISLOCATION MAR MULTIPLE&IL L-DEFINED SITES 8471 THORACIC 09-22-2013 [facility] SPRAIN AND MAR STRAIN 66529 UNSPECIFIED 09-17-2013 EMERGENCY INFECTIVE CARE PHYS OTITIS [facility] EXTERNA 462 ACUTE 09-17-2013 EMERGENCY PHARYNGITIS CARE PHYS [facility] 4871 INFLUENZA 09-14-2013 ST WITH OTHER [facility] RESPIRATORY PHYSICIANS MANIFESTATI ONS 7232 CERVICOCRAN 09-13-2013 [facility] IAL MAR SYNDROME 3899 UNSPECIFIED 09-07-2013 ST HEARING [facility] LOSS MED CTR EDITOR IN CHIEF NEWSPAPER ST 470 DEVIATED 09-07-2013 ST NASAL [facility] SEPTUM MED CTR EDITOR IN CHIEF NEWSPAPER ST V140 PERSONAL 09-07-2013 ST HISTORY OF [facility] ALLERGY TO MED CTR EDITOR IN CHIEF NEWSPAPER PENICILLIN ST 6261 SCANTY OR 09-03-2013 ST INFREQUENT [facility] MENSTRUATIO FT HU N 7842 SWELLING 08-29-2013 ST. MASS OR [facility] LUMP IN LI HEAD AND NECK V7231 ROUTINE 08-25-2013 ST GYNECOLOGIC [facility] AL PHYSICIANS EXAMINATION 74944 OBESITY 07-17-2013 ST HYPOVENTILA [facility] TION FT HU SYNDROME 53588 ASTHMA 07-17-2013 ST UNSPECIFIED [facility] WITH FT HU STATUS ASTHMATICUS 29775 ACUTE AND 07-17-2013 ST CHRONIC [facility] RESPIRATORY FT HU FAILURE 3671 MYOPIA 07-03-2008 JR JACQUE, LISA Yuan 7862 COUGH 06-29-2008 [facility]RGENT MEDICAL [facility]ARE 39248 MODERATE 06-21-2008 [facility] 7242 LUMBAGO 06-21-2008 [facility] V7241 06-12-2008 [facility] EX[facility] OR TEST NEGATIVE RESULT Medications Na ND Rx Da Fi Fi Am Da Di Ph RX Ph St me C No te ll ll ou ys ag ar # ys at rm s nt no ma ic us Or Da si cy ia de te s n re d 00 12 01 00 12 3 KR [...] 34 0 5 MG TA BL ET CI 55 12 12 00 14 7 KR 63 FA Ac NV 11 -0 -1 .0 OG 70 UL ti OF 10 1- 8- 00 ER 77 KN ve LO 12 20 20 7 ER XA 70 08 08 PH CI 1 AR DE N M NN HC L- IS L 34 R 50 5 0 MG TA B 00 12 12 00 12 3 KR 45 FA Ac 40 -0 -1 .0 OG 19 UL ti 61 1- 8- 00 ER 94 KN ve 72 20 20 4 ER 10 08 08 PH 5 AR DE M NN L- IS 34 R 5 Procedures Procedure DOS Code Location Performer Comment INSERTION [id number] [facility] INFUSION 7 [facility] JULIO JULIO SUPERIOR VENA CAVA PERQ THERAPEUT 98361 [facility] IC 7 [facility]NER PROPHYLAC TIC/DX [facility]ALTH[facility] HEALTHCAR INJECTION E EDGE E EDGE SUBQ/IM THERAPEUT 52827 [facility] IC 7 [facility]NER PROPHYLAC LI LI TIC/DX INJECTION SUBQ/IM BLOOD 85123 [facility]. COUNT 7 [facility] CHOUTH COMPLETE LI LI AUTO&[place] [address] [facility]. LIPASE 7 [facility] ISSABETH LI LI BASIC 73011 [facility]. METABOLIC 7 [facility] PANEL LI LI CALCIUM TOTAL COLLECTIO 75363 [facility]. N VENOUS 7 [facility] BLOOD LI LI VENIPUNCT URE HEPATIC 14845 [facility]. FUNCTION 7 [facility] ISSABETH PANEL LI LI LIPID 49659 [facility] PANEL 7 [facility] H[facility]NER HE[place] [address] [facility] GLYCATED 7 [facility] PROTEIN HEALTHCAR HEALTHCAR E EDGE E EDGE COLLECTIO 83152 [facility] N VENOUS 7 [facility] BLOOD VENIPUNCT HEALTHCAR HEALTHCAR URE E EDGE E EDGE 25 51569 [facility] HYDROXY 7 [facility]NER INCLUDES FRACTIONS HEALTHCAR HEALTHCAR IF E EDGE E EDGE PERFORMED THERAPEUT 87914 [facility] IC 7 [facility] PROPHYLAC TIC/DX HEALTHCAR HEALTHCAR INJECTION E EDGE E EDGE SUBQ/IM MRI BRAIN 68261 [facility] BRAIN 7 [facility]ORNER STEM W/O W/CONTRAS HEALTHCAR HEALTHCAR T E EDGE E EDGE MATERIAL HEMOGLOBI 51749 [facility] N 7 [facility] HORNER GLYCOSYLA ANDERS A1C HEALTHCAR HEALTHCAR E EDGE E EDGE GONADOTRO 49685 [facility] ISS[facility] PIN 7 MEM HOS[facility]OS[facility] CHORIONIC INC INC QUALITATI VE BLOOD 63471 [facility] ISSA COUNT 7 [facility] COMPLETE INC INC AUTO&AUTO DIFRNTL WBC URNLS DIP 82929 [facility] ISSA 7 [facility] STICK/TAB INC INC LET REAGENT AUTO MICROSCOP Y THERAPEUT 69336 [facility] ISS[facility] IC 7 [facility] PROPHYLAC INC INC TIC/DX INJECTION SUBQ/[place] [address] [facility] ISSA AMYLASE 7 [facility] H[facility] INC INC INJECTION J0595 [facility] ISSA 7 [facility] BUTORPHAN INC INC [place] TARTR[place] [address] [place] [address] [facility] LIPASE 7 [facility] [place] [address] [facility] ABDOMEN & 7 [facility] PELVIS INC INC W/O CONTRAST MATERIAL COMPREHEN 29040 [facility] SIVE 7 [facility] METABOLIC INC INC PANEL THERAPEUT [address] IC 7 [facility] PROPHYLAC TIC/DX HEALTHCAR HEALTHCAR INJECTION E EDGE E EDGE SUBQ/IM RADEX [address] ANKLE 7 [facility] COMPLETE LI LI MINIMUM [address] FOOT 7 [facility] COMPLETE LI LI MINIMUM 3 VIEWS INJECTION J2405 [facility] ISSA 7 [facility] ONDANSETR INC INC ON HCL PER [address] [place] [address] [facility] ISS[facility] LACTATE 7 [facility] [place] [address] [facility] ISSA LIPASE 7 [facility] INC INC URNLS DIP 78296 [facility] ISSA 7 [facility] STICK/TAB INC [place] [address] [facility] ISSA INFUSION 7 [facility] THERAPY/P INC INC ROPHYLAXI S /DX 1ST TO 1 HR THERAPEUT 14805 [facility] ISSA IC 7 [facility] INJECTION INC INC IV PUSH EACH NEW DRUG CULTURE 68515 [facility] ISSA BACTERIAL 7 [facility] BLOOD INC INC AEROBIC W/ID ISOLATES GONADOTRO 90961 [facility] ISSA PIN 7 [facility] CHORIONIC INC INC QUALITATI VE BLOOD 56077 [facility] ISSA COUNT 7 [facility]OS[facility] COMPLETE INC INC AUTO&AUTO DIFRNTL WBC COMPREHEN 24883 [facility] ISS[facility] SIVE 7 [facility] METABOLIC INC INC PANEL COLLECTIO 37224 [facility] ISSA N VENOUS 7 [facility] BLOOD INC INC VENIPUNCT URE THER 13817 [facility] ISSA PROPH/DX 7 [facility]OS[facility] NJX EA INC INC SEQL IV PUSH SBST/DRUG FAC NONINVASI [address] VE 6 [facility] EAR/PULSE MED CTR MED CTR OXIMETRY EDITOR IN CHIEF NEWSPAPER ST EDITOR IN CHIEF NEWSPAPER [facility] [address] ST ST OBSERVATI 6 [facility] ON MED CTR MED CTR SERVICE EDITOR IN CHIEF NEWSPAPER ST EDITOR IN CHIEF NEWSPAPER ST PER HOUR THERAPEUT [address] IC 6 [facility] PROPHYLAC MED CTR MED CTR TIC/DX EDITOR IN CHIEF NEWSPAPER ST EDITOR IN CHIEF NEWSPAPER ST INJECTION SUBQ/IM PRESSURIZ [address] ED/NONPRE 6 [facility] SSURIZED MED CTR MED CTR INHALATIO EDITOR IN CHIEF NEWSPAPER ST EDITOR IN CHIEF NEWSPAPER ST N TREATMENT CPAP [address] VENTILATI 6 [facility] ON CPAP MED CTR MED CTR INITIATIO EDITOR IN CHIEF NEWSPAPER ST EDITOR IN CHIEF NEWSPAPER ST N&MGMT GLUC BLD [address] GLUC MNTR 6 [facility] DEV MED CTR MED CTR CLEARED EDITOR IN CHIEF NEWSPAPER ST EDITOR IN CHIEF NEWSPAPER ST FDA SPEC HOME USE CPAP [address] ST VENTILATI 6 [facility] ON CPAP MED CTR MED CTR INITIATIO EDITOR IN CHIEF NEWSPAPER ST EDITOR IN CHIEF NEWSPAPER ST N&MGMT PRESSURIZ [address] ED/NONPRE 6 [facility] SSURIZED MED CTR MED CTR INHALATIO EDITOR IN CHIEF NEWSPAPER ST EDITOR IN CHIEF NEWSPAPER ST N TREATMENT THERAPEUT [address] IC 6 [facility] PROPHYLAC MED CTR MED CTR TIC/DX EDITOR IN CHIEF NEWSPAPER ST EDITOR IN CHIEF NEWSPAPER ST INJECTION SUBQ/IM GLUC BLD [address] GLUC MNTR 6 [facility] DEV MED CTR MED CTR CLEARED EDITOR IN CHIEF NEWSPAPER ST EDITOR IN CHIEF NEWSPAPER ST FDA SPEC HOME USE NONINVASI [address] VE 6 [facility] EAR/PULSE MED CTR MED CTR OXIMETRY EDITOR IN CHIEF NEWSPAPER ST EDITOR IN CHIEF NEWSPAPER [facility] [id number] OBSERVATI 6 [facility] ON [facility] MED [facility] SERVICE EDITOR IN CHIEF NEWSPAPER ST EDITOR IN CHIEF NEWSPAPER ST PER HOUR THER [address] PROPH/DX 6 [facility] NJX EA [facility] MED CTR SEQL IV EDITOR IN CHIEF NEWSPAPER ST EDITOR IN CHIEF NEWSPAPER ST PUSH SBST/DRUG FAC THER [address] PROPH/DX 6 [facility] NJ[facility] EA [facility] SEQL IV EDITOR IN CHIEF NEWSPAPER ST EDITOR IN CHIEF NEWSPAPER ST PUSH SBST/DRUG [facility] G[address] [facility] OBSERVATI 6 [facility] ON [facility] MED [facility] SERVICE EDITOR IN CHIEF NEWSPAPER ST EDITOR IN CHIEF NEWSPAPER ST PER HOUR NONINVASI [address] VE 6 [facility] EAR/PULSE MED CTR MED CTR OXIMETRY EDITOR IN CHIEF NEWSPAPER ST EDITOR IN CHIEF NEWSPAPER ST MULTIPLE DETER PRESSURIZ [address] ED/NONPRE 6 [facility] SSURIZED MED [facility] MED CTR INHALATIO EDITOR IN CHIEF NEWSPAPER ST EDITOR IN CHIEF NEWSPAPER ST N TREATMENT THERAPEUT [address] IC 6 [facility] PROPHYLAC [facility] MED CTR TIC/DX EDITOR IN CHIEF NEWSPAPER ST EDITOR IN CHIEF NEWSPAPER ST INJECTION SUBQ/IM CPAP [address] VENTILATI 6 [facility] ON CPAP [facility] MED CTR INITIATIO EDITOR IN CHIEF NEWSPAPER ST EDITOR IN CHIEF NEWSPAPER ST N&MGMT GLUC BLD [address] [facility]UC MNTR 6 [facility] DEV [facility] MED CTR CLEARED EDITOR IN CHIEF NEWSPAPER ST EDITOR IN CHIEF NEWSPAPER ST FDA SPEC HOME USE [id number] HYDROXY 6 [facility] INCLUDES [facility] MED CTR FRACTIONS EDITOR IN CHIEF NEWSPAPER ST EDITOR IN CHIEF NEWSPAPER ST IF PERFORMED RADIOLOGI [address] ST C EXAM 6 [facility] CHEST 2 MED CTR MED CTR VIEWS EDITOR IN CHIEF NEWSPAPER ST EDITOR IN CHIEF NEWSPAPER ST FRONTAL&L ATERAL GLUC BLD [address] GLUC MNTR 6 [facility] DEV [facility] MED CTR CLEARED EDITOR IN CHIEF NEWSPAPER ST EDITOR IN CHIEF NEWSPAPER ST FDA SPEC HOME USE PRESSURIZ [address] ST ED/NONPRE 6 [facility] SSURIZED [facility] MED CTR INHALATIO EDITOR IN CHIEF NEWSPAPER ST EDITOR IN CHIEF NEWSPAPER ST N TREATMENT THERAPEUT [address] IC 6 [facility] INJECTION MED [facility] MED CTR IV PUSH EDITOR IN CHIEF NEWSPAPER ST EDITOR IN CHIEF NEWSPAPER ST EACH NEW DRUG THER [address] PROPH/DX 6 [facility] NJX IV MED CTR MED CTR PUSH EDITOR IN CHIEF NEWSPAPER ST EDITOR IN CHIEF NEWSPAPER ST SINGLE/1S T SBST/DRUG ECG [address] ROUTINE 6 [facility] ECG MED [facility] MED CTR W/LEAST EDITOR IN CHIEF NEWSPAPER ST EDITOR IN CHIEF NEWSPAPER ST 12 LDS TRCG ONLY W/O I&R GONADOTRO [address] PIN 6 [facility] CHORIONIC MED [facility] MED CTR EDITOR IN CHIEF NEWSPAPER ST EDITOR IN CHIEF NEWSPAPER ST QUALITATI VE BLOOD [address] COUNT 6 [facility] COMPLETE [facility] MED CTR AUTO&AUTO EDITOR IN CHIEF NEWSPAPER ST EDITOR IN CHIEF NEWSPAPER ST DIFRNTL WBC DRUG [address] SCREEN 6 [facility] QUANTITAT MED CTR MED CTR RACHEL EDITOR IN CHIEF NEWSPAPER ST EDITOR IN CHIEF NEWSPAPER ST THEOPHYLL INE NONINVASI [address] VE 6 [facility] EAR/PULSE MED CTR MED CTR OXIMETRY EDITOR IN CHIEF NEWSPAPER ST EDITOR IN CHIEF NEWSPAPER ST [facility] [address] OBSERVATI 6 [facility] ON MED CTR MED CTR SERVICE EDITOR IN CHIEF NEWSPAPER ST EDITOR IN CHIEF NEWSPAPER ST PER HOUR COLLECTIO [address] N VENOUS 6 [facility] BLOOD MED CTR MED CTR VENIPUNCT EDITOR IN CHIEF NEWSPAPER ST EDITOR IN CHIEF NEWSPAPER ST URE THER [address] PROPH/DX 6 [facility] NJX EA MED CTR MED CTR SEQL IV EDITOR IN CHIEF NEWSPAPER ST EDITOR IN CHIEF NEWSPAPER ST PUSH SBST/DRUG FAC BASIC [address] METABOLIC 6 [facility] PANEL MED CTR MED CTR CALCIUM EDITOR IN CHIEF NEWSPAPER ST EDITOR IN CHIEF NEWSPAPER ST TOTAL OBSERVATI 48512 ST BANKERS ON CARE 6 [facility] BRA DISCHARGE PHYSICIAN MANAGEMEN S T SBSQ [address]98 ST BANKERS OBSERVATI 6 [facility] BRA ON CARE/DAY PHYSICIAN 25 S MINUTES INITIAL [address] ST BANKERS OBSERVATI 6 [facility] BRA ON CARE/DAY PHYSIC[place] [address] [place] [address] HEAD/BRAI 6 [facility] HORNER N W/O & [facility] W/CONTRAS T MATERIAL CREATININ 10090 [facility]. E BLOOD 6 [facility] SAMAYOAENCE JULIO RADEX [address] FOOT 5 [facility] HORNER COMPLETE MED CTR MED CTR MINIMUM 3 EDITOR IN CHIEF NEWSPAPER ST EDITOR IN CHIEF NEWSPAPER ST VIEWS SBSQ 73256 [facility] 5 [facility] 35 MEDICAL MEDICAL MINUTES INITIAL 31215 [facility] INPATIENT 5 CHR CONSULT PULMONARY NEW/ESTAB ASSOCIAT PT 80 MIN FULL FACE A7030 [facility] ROTHERTS MASK 5 HOSP HOSP USED EQUIP EQUIP W/POS ARWAY PRESS DEVICE EA FILTER A7038 [facility] ELLER DISPBL 5 HOSP HOSP USED EQUIP EQUIP W/POS ARWAY PRESSURE DEVICE FACE MASK A7031 [facility] ROTHERTS 5 HOSP HOSP INTERFACE EQUIP EQUIP REPLCMT FULL FACE MASK EA TUBING A7037 RAFITA ELLER USED WITH 5 HOSP HOSP POSITIVE EQUIP EQUIP AIRWAY PRESSURE DEVICE PRESSURIZ 63886 [facility] ED/NONPRE 5 [facility] HORNER SSURIZED INHALATIO HEALTHCAR HEALTHCAR N E EDGE E EDGE TREATMENT O2 CONC 1 E1390 PATIENT PATIENT DEL PORT 5 AIDS INC AIDS INC 85%/>02 CONC AT PRSC FLW RATE O2 CONC 1 E1390 PATIENT PATIENT DEL PORT 5 AIDS INC AIDS INC 85%/>02 CONC AT PRSC FLW RATE FILTER A7039 [facility]ITA ROTHSEGUN NON 4 HOSP HOSP DISPBL EQUIP EQUIP USED W/POS ARWAY PRESS DEVICE FULL FACE A7030 RAF[facility] ROTHERTS MASK 4 HOSP HOSP USED EQUIP EQUIP W/POS ARWAY PRESS DEVICE EA FACE MASK A7031 RAF[facility] ROTHERTS 4 HOSP HOSP INTERFACE EQUIP EQUIP REPLCMT FULL FACE MASK EA FILTER A7038 [facility] ROTHSEGUN DISPBL 4 HOSP HOSP USED EQUIP EQUIP W/POS ARWAY PRESSURE DEVICE TUBING A7037 RAFITA ROTHERTS USED WITH 4 HOSP HOSP POSITIVE EQUIP EQUIP AIRWAY PRESSURE DEVICE HEADGEAR A7035 RAFITA ELLER USED 4 HOSP HOSP W/POSITIV EQUIP EQUIP E AIRWAY PRESSURE DEVICE O2 CONC 1 E1390 PATIENT PATIENT DEL PORT 4 AIDS INC AIDS INC 85%/>02 CONC AT PRSC FLW RATE O2 CONC 1 E1390 PATIENT PATIENT DEL PORT 4 AIDS INC AIDS INC 85%/>02 CONC AT PRSC FLW RATE COLLECTIO [address] N VENOUS 4 [facility] BLOOD LI LI VENIPUNCT URE COMPREHEN [address] SIVE 4 [facility] [place] [address] [facility] INFUSION 4 [facility] HYDRATION LI LI EACH ADDITIONA L HOUR GLUC BLD 81401 [facility] GLUC MNTR 4 [facility] DEV LI LI CLEARED FDA SPEC HOME USE O2 CONC 1 E1390 PATIENT PATIENT DEL PORT 4 AIDS INC AIDS INC 85%/>02 CONC AT PRSC FLW RATE RADEX [address] ANKLE 4 [facility] COMPLETE LI LI MINIMUM 3 VIEWS O2 CONC 1 E1390 PATIENT PATIENT DEL PORT 4 AIDS INC AIDS INC 85%/>02 CONC AT PRSC FLW RATE INITIAL 78834 [facility] INPATIENT 4 [place] ELIGIO CONSULT NEW/ESTAB PHYSICIAN PT 80 S MIN BASIC 14067 [facility] METABOLIC 4 [facility] PANEL MED CTR MED CTR CALCIUM EDITOR IN CHIEF NEWSPAPER ST EDITOR IN CHIEF NEWSPAPER [facility] 17749 [place] DISCHARGE 4 [facility] DAY MANAGEMEN PHYSICIAN T 30 S MIN/< HOSPITAL [address] DISCHARGE 4 [facility] DAY MANAGEMEN PHYSICIAN PHYSICIAN T 30 S S [place]/< [place] [address] RADIOLOGY DEVIN TRANSVAGI 4 III LADONNA NAL ASSOCIATE S OF [facility] US PELVIC 14642 RADIOLOGY DEVIN 4 III LADONNA NONOBSTET ASSOCIATE SHAUN S OF [facility] REAL-TIME IMAGE COMPLETE HEPATOBIL 53475 RADIOLOGY ROBER IAKRYSTEN SYST 4 TONY IMAGING ASSOCIATE INCLUDING S OF [facility] [place] [address] RADIOLOGY BRO ABDOMINAL 4 BRA REAL ASSOCIATE TIME S [place] W/[place] [address] RADIOLOGY ROBER RETROPERI 4 TONY TONEAL ASSOCIATE REAL TIME S OF NOT W/IMAGE COMPLETE INITIAL 92061 [facility] INPATIENT 4 [facility] PHI CONSULT NEW/ESTAB PHYSICIAN PT 80 S MIN RADIOLOGI 54671 PROFESSIO MUSSMAN C EXAM 4 NAL ADA CHEST 2 RADIOLOGY VIEWS INC. FRONTAL&L ATERAL EXCISION 41828 FOOT TIRONE NAIL 4 SPECIALIS LUIS ANGEL MATRIX TS OF PERMANENT GREATER REMOVAL ECG 26553 ABDALLAH ABDALLAH ROUTINE 4 ELIGIO ELIGIO ECG W/LEAST 12 LDS I&R ONLY RADIOLOGI 23584 DEBORA DEBORA C 4 ANI ANI EXAMINATI ON CHEST SINGLE VIEW FRONTAL GLUC BLD 27327 ST HERMILLER GLUC MNTR 4 [facility] GIANNA DEV CLEARED PHYSICIAN FDA SPEC S HOME USE EXCISION 20523 FOOT TIRONE NAIL 4 SPECIALIS LUIS ANGEL MATRIX TS OF PERMANENT GREATER REMOVAL MEDICAL 51145 ST HERMILLER NUTRITION 4 [facility] GIANNA THERAPY GRP2/ PHYSICIAN INDIV EA S 30 [place] SBSQ 16575 [facility] 4 [facility] SOP CARE/DAY 25 PHYSICIAN MINUTES S INITIAL 03324 [facility] 4 [facility] CARE/DAY 70 PHYSICIAN MINUTES S RADIOLOGI 62693 RADIOLOGY [place] C EXAM 4 SIMEON CHEST 2 ASSOCIATE VIEWS S OF NOT FRONTAL&L ATERAL POLYSOM 04152 ST RIDDLE 6/>YRS 4 [facility] JAM SLEEP MED CTR W/CPAP 4/> ADDL CHUY ATTND ALLERGEN [address] SPECIFIC 4 [facility] CH[facility]TH IGE FT FT KARLA/SEMI HU LUI KARLA EA ALLERGEN ANTIBODY [address] REYNALDO 4 [facility] CHOUTH FT FT HU LUI COLLECTIO [address] N VENOUS 4 [facility] HORNER BLOOD FT FT VENIPUNCT HU LUI URE COLLECTIO 78914 ONCOLOGY TERESITA CHR N VENOUS 4 HEMATOLOG BLOOD Y CARE VENIPUNCT INC URE BLOOD 06674 ONCOLOGY TERESITA CHR COUNT 4 HEMATOLOG COMPLETE Y CARE AUTO&AUTO INC DIFRNTL WBC RADIOLOGI 63520 RADIOLOGY GARCIA BYR C EXAM 4 CHEST 2 ASSOCIATE VIEWS S OF NOTH FRONTAL&L ATERAL ECG 52543 ST HULLER ROUTINE 4 [facility] RAL ECG MED CTR W/LEAST 12 LDS I&R ONLY URINE 07366 ST [place] 4 [facility] AMA TEST VISUAL PHYSICIAN [place] [address] SURG 4 [facility] PATHOLOGY MED CTR MED CTR EDITOR IN CHIEF NEWSPAPER ST EDITOR IN CHIEF NEWSPAPER ST GROSS&ZAYRA ROSCOPIC EXAM COLPOSCOP 44360 ST [place] Y CERVIX 4 [facility] AMA BX CERVIX & PHYSICIAN ENDOCRV S CURRETAGE FLOW [address] CYTOMETRY 4 [facility] CELL MED CTR MED CTR SURF EDITOR IN CHIEF NEWSPAPER ST EDITOR IN CHIEF NEWSPAPER ST MARKER TECHL ONLY 1ST TISS CUL [address] HAKAN 4 [facility] DISORDERS MED CTR MED CTR BONE EDITOR IN CHIEF NEWSPAPER ST EDITOR IN CHIEF NEWSPAPER ST MARROW BLOOD CELLS GLUC BLD [address] GLUC MNTR 4 [facility] DEV MED CTR MED CTR CLEARED EDITOR IN CHIEF NEWSPAPER ST EDITOR IN CHIEF NEWSPAPER ST FDA SPEC HOME USE BLOOD [address] COUNT 4 [facility] COMPLETE MED CTR MED CTR AUTO&AUTO EDITOR IN CHIEF NEWSPAPER ST EDITOR IN CHIEF NEWSPAPER ST DIFRNTL WBC INJECTION J2250 ST ST 4 [facility] MIDAZOLAM MED CTR MED CTR HCL PER EDITOR IN CHIEF NEWSPAPER ST EDITOR IN CHIEF NEWSPAPER ST [address] MORPHINE 4 [facility] SULFATE MED CTR MED CTR UP TO 10 EDITOR IN CHIEF NEWSPAPER ST EDITOR IN CHIEF NEWSPAPER ST MG BN MARROW G0364 RADIOLOGY SCHMITTER ASPIR 4 GULSHAN PRFRM ASSOCIATE W/BX SAME S OF NOTH INCI SAME DOS RADIOLOGI [address] C EXAM 4 [facility] CHEST 2 MED CTR MED CTR VIEWS EDITOR IN CHIEF NEWSPAPER ST EDITOR IN CHIEF NEWSPAPER ST FRONTAL&L ATERAL FLOW 12545 ST KWAME DAKSHA CYTOMETRY 4 [facility] MED CTR INTERPRET ATION 16/> MARKERS SPCL STN 32509 ST KWAME DAKSHA 2 I&R 4 [facility] EXCPT MED CTR MICROORG/ ENZYME/IM CYT DECALCIFI 60727 ST KWAME DAKSHA CATION 4 [facility] PROCEDURE MED CTR IMHISTOCH 22134 ST KWAME DAKSHA EM/CYTCHM 4 [facility] 1ST MED CTR ANTIBODY STAIN PROCEDURE BLOOD 19270 ST KWAME DAKSHA SMEAR 4 [facility] PERIPHERA MED CTR L INTERP PHYS W/WRIT REPORT BONE 46487 ST KWAME DAKSHA MARROW 4 [facility] SMEAR MED CTR INTERPRET ATION INJECTION J3010 ST ST FENTANYL 4 [facility] CITRATE MED CTR MED CTR 0.1 MG EDITOR IN CHIEF NEWSPAPER ST EDITOR IN CHIEF NEWSPAPER ST PRESSURIZ [address] ED/NONPRE 4 [facility] SSURIZED MED CTR MED CTR INHALATIO EDITOR IN CHIEF NEWSPAPER ST EDITOR IN CHIEF NEWSPAPER ST N TREATMENT FLOW [address] CYTOMETRY 4 [facility] CELL MED CTR MED CTR SURF EDITOR IN CHIEF NEWSPAPER ST EDITOR IN CHIEF NEWSPAPER [place] [address] ST KWAME DAKSHA SURG 4 [facility] PATHOLOGY MED CTR GROSS&[place] [address] GUIDANCE 4 [facility] NEEDLE MED CTR MED CTR PLACEMENT EDITOR IN CHIEF NEWSPAPER ST EDITOR IN CHIEF NEWSPAPER ST BONE [address] MARROW 4 [facility] BIOPSY MED CTR MED CTR NEEDLE/TR EDITOR IN CHIEF NEWSPAPER ST EDITOR IN CHIEF NEWSPAPER ST OCAR CHRMSM [address] ANALYZE 4 [facility] - MED CTR MED CTR CELLS EDITOR IN CHIEF NEWSPAPER ST EDITOR IN CHIEF NEWSPAPER ST MODERATE 54302 [facility] 4 GUL[place]AN SAME ASSOCIATE PHYS/QHP S OF NOTH 5/>YRS INIT 30 MIN BLD GLU A4253 LIBERATOR LIBERATOR TEST/REAG 4 MEDICAL MEDICAL T STRIPS SUPPLY SUPPLY HOME BLD INC INC GLU MON-[address] 6/>YRS 4 [facility] SLEEP 4/> FT FT ADDL HU LUI CHUY ATTND BLOOD 95325 ONCOLOGY ONCOLOGY COUNT 4 HEMATOLOG HEMATOLOG COMPLETE Y CARE Y CARE AUTO&[place] [address] RADIOLOGY BRANDSER ABDOMEN & 4 ESTHER PELVIS ASSOCIATE W/O S OF NOTH CONTRAST MATERIAL TYMPANOME 20730 RUBINSTEI RUBINSTEI TRY 4 N GULSHAN N GULSHAN PURE TONE 85808 RUBINSTEI RUBINSTEI 4 N GULSHAN N GULSHAN AUDIOMETR Y AIR & BONE EXCISION 26894 FOOT TIRONE NAIL 4 SPECIALIS LUIS ANGEL MATRIX TS OF PERMANENT GREATER REMOVAL SBSQ [address] IRF CARE/DAY 25 PHYSICIAN MINUTES [facility] 25896 [facility] MANAGEMEN PHYSICIAN T 30 S MIN/< SBSQ [address] CARE/DAY 25 PHYSICIAN MINUTES S SBSQ [address] IRF CARE/DAY 35 PHYSICIAN MINUTES S SBSQ [address] IRF CARE/DAY 35 PHYSICIAN MINUTES S SBSQ [address] CARE/DAY 25 PHYSICIAN MINUTES S SBSQ [address] IRF CARE/DAY 35 PHYSICIAN MINUTES S SBSQ [address] IRF CARE/DAY 35 PHYSICIAN MINUTES S SBSQ [address] BREANNA CARE/DAY 25 PHYSICIAN MINUTES S SBSQ [address] SOP CARE/DAY 25 PHYSICIAN MINUTES S SBSQ [address] SOP CARE/DAY 25 PHYSICIAN MINUTES S INITIAL 34746 [facility] INPATIENT 4 [facility] BREANNA CONSULT NEW/ESTAB PHYSICIAN PT 80 S MIN INITIAL 45821 ONCOLOGY TERESITA CHR INPATIENT 4 HEMATOLOG CONSULT Y CARE NEW/ESTAB INC PT 80 MIN SBSQ [address] CARE/DAY 25 PHYSICIAN MINUTES S INITIAL [address] CARE/DAY 70 PHYSICIAN MINUTES S RADIOLOGI 54236 RADIOLOGY [place] C 4 JAM EXAMINATI ASSOCIATE ON CHEST S OF [facility] SINGLE VIEW FRONTAL CRITICAL 24130 EMERGENCY SELWYN CARE 4 CARE CHRIS ILL/INJUR PHYS ED [facility] PATIENT INIT 30-74 MIN CHIROPRAC 57850 SPERBECK SPERBECK TIC 4 MAR MAR MANIPLTV TX EXTRASPIN AL 1/> REGION CHIROPRAC 33501 SPERBECK SPERBECK TIC 4 MAR MAR MANIPULAT RACHEL [place] SPINAL 3-4 [facility] [address] [facility] DISCHARGE 4 DAY MANAGEMEN PHYSICIAN T 30 S MIN/< SBSQ [address] CARE/DAY 25 PHYSICIAN MINUTES S RADIOLOGI 23825 RADIOLOGY GARCIA BYR C EXAM 4 CHEST 2 ASSOCIATE VIEWS S OF NOTH FRONTAL&L ATERAL CHIROPRA 45981 SPERBECK SPERBECK TIC 4 MAR MAR MANIPULAT RACHEL [place] SPINAL 3-4 REGIONS CHIROPRAC 84254 SPERBECK SPERBECK TIC 4 MAR MAR MANIPLTV TX EXTRASPIN AL 1/> REGION IAADIADOO 85[address] ST DOUGLAS JAYESH 4 [facility] INFLUENZA PHYSICIAN S [facility] [address] D[facility] JAYESH 4 EVENS STREPTOCO CCUS PHYSICIAN GROUP A S CHIROPRAC 71553 SPERBECK SPERBECK TIC 4 MAR MAR MANIPLTV TX EXTRASPIN AL 1/> REGION CHIROPRAC 24322 SPERBECK SPERBECK TIC 4 MAR MAR MANIPULAT RACHEL [place] SPINAL 3-4 REGIONS EXCISION 86209 FOOT TIRONE NAIL 4 SPECIALIS LUIS ANGEL MATRIX TS OF PERMANENT GREATER REMOVAL URINE [address] 4 [facility] TEST MED CTR MED CTR VISUAL EDITOR IN CHIEF NEWSPAPER ST EDITOR IN CHIEF NEWSPAPER ST COLOR CMPRSN METHS PRESSURIZ [address] ED/NONPRE 4 EVENSARI HORNER SSURIZED MED CTR MED CTR INHALATIO EDITOR IN CHIEF NEWSPAPER ST EDITOR IN CHIEF NEWSPAPER ST N TREATMENT GLUC BLD [address] GLUC MNTR 4 EV[facility]ARI CHOUTH DEV MED CTR MED CTR CLEARED EDITOR IN CHIEF NEWSPAPER ST EDITOR IN CHIEF NEWSPAPER ST FDA SPEC HOME USE INJECTION J0131 ST ST 4 [facility]AR[facility] CH[facility]TH ACETAMINO MED CTR MED CTR PHEN 10 EDITOR IN CHIEF NEWSPAPER ST EDITOR IN CHIEF NEWSPAPER ST MG INJECTION J2250 ST ST 4 [facility]AR[facility] CHOUTH MIDAZOLAM MED CTR MED CTR HCL PER EDITOR IN CHIEF NEWSPAPER ST EDITOR IN CHIEF NEWSPAPER ST 1 MG ANES 80579 INDEPENDE KLANKE XTRNL MID 4 NT JUS & INNER ANESTHESI EAR W/BX OLOGIST TYMPANOTO MY TYMPANOST [address] ELISHA 4 [facility] HORNER GENERAL MED CTR MED CTR ANESTHESI EDITOR IN CHIEF NEWSPAPER ST EDITOR IN CHIEF NEWSPAPER ST A INJ J1720 ST ST HYDROCORT 4 [facility] ISONE MED CTR MED CTR SODIUM EDITOR IN CHIEF NEWSPAPER ST EDITOR IN CHIEF NEWSPAPER ST SUCCINATE TO [address] 4 EV[facility]ARI HORNER ONDANSETR MED CTR MED CTR ON HCL EDITOR IN CHIEF NEWSPAPER ST EDITOR IN CHIEF NEWSPAPER ST PER [address] IN[address] 4 [facility] H[facility]NER DEXAMETHO MED CTR MED CTR SONE EDITOR IN CHIEF NEWSPAPER ST EDITOR IN CHIEF NEWSPAPER ST SODIUM PHOSPHATE [address] PIN 4 [facility] HORNER [place] [address] TRANSVAGI 4 [facility] [place] [address] PROLACTIN 4 [place] [address] TESTOSTER 4 [facility] HORNER ONE TOTAL FT FT HU LUI GONADOTRO [address] PIN 4 [facility]ORNER FOLLICLE FT FT STIMULATI HU LUI NG HORMONE US PELVIC [address] 4 [facility] NONOBSTET FT FT SHAUN HU LUI REAL-TIME IMAGE COMPLETE COLLECTIO [address] N VENOUS 4 [facility] HORNER BLOOD FT FT VENIPUNCT HU LUI URE CHIROPRAC 13503 SPERBECK SPERBECK TIC 4 MAR MAR MANIPULAT RACHEL [place] SPINAL 3-4 REGIONS CHIROPRAC 92450 SPERBECK SPERBECK TIC 4 MAR MAR MANIPLTV TX EXTRASPIN AL 1/> REGION INJ A[address] GADOBENAT 4 [facility] HORNER E LI LI DIMEGLUMI NE MULTIHANC E PER ML MRI BRAIN 00898 RADIOLOGY XIMENA BRAIN 4 TONY STEM W/O ASSOCIATE W/CONTRAS S OF NOT T MATERIAL MEDICAL 54254 ST NETO WAE NUTRITION 4 [facility] THERAPY GRP2/ PHYSICIAN INDIV EA S 30 AZ CHIROPRAC 87722 SPERBECK SPERBECK TIC 4 MAR MAR MANIPLTV TX EXTRASPIN AL 1/> REGION CHIROPRAC 54142 SPERBECK SPERBECK TIC 4 MAR MAR MANIPULAT RACHEL [place] SPINAL 3-[address] TION RATE 4 [facility] HORNER RBC LI LI AUTOMATED LOCM Q9967 ST. [address]. 300-399 4 [facility] HORNER MG/ML LI LI IODINE CONCENTRA TION PER ML CT SOFT [address] TISSUE 4 [facility] HORNER NECK LI LI W/CONTRAS T MATERIAL CREATININ [address] E BLOOD 4 [facility] CHOUTH LI LI BLOOD [address] COUNT 4 [facility] HORNER COMPLETE LI LI AUTOMATED HEMOGLOBI [address] N 4 [facility] HORNER GLYCOSYLA LI LI ANDERS A1C NORMAL A4256 LIBERATOR LIBERATOR LOW AND 4 MEDICAL MEDICAL HIGH SUPPLY SUPPLY [employer] INC R SOLUTION/ CHIPS LANCETS A4259 LIBERATOR LIBERATOR PER BOX 4 MEDICAL MEDICAL OF 100 SUPPLY SUPPLY INC INC BLD GLU A4253 LIBERATOR LIBERATOR TEST/REAG 4 MEDICAL MEDICAL T STRIPS SUPPLY SUPPLY HOME BLD INC INC GLU MON-50 SPRING-PO A4258 LIBERATOR LIBERATOR WERED 4 MEDICAL SAFETY TECH SUPPLY SUPPLY FOR INC INC LANCET EACH CYTP 65246 ST [place] DON CERVICAL/ 4 [facility] VAGINAL MED CTR REQ INTERP PHYSICIAN CYTP C/V [address] AUTO THIN 4 [facility] EVENS LYR MED CTR MED CTR PREPJ SCR EDITOR IN CHIEF NEWSPAPER ST EDITOR IN CHIEF NEWSPAPER ST MNL RESCR PHYS CHIROPRAC 03078 SPERBECK SPERBECK TIC 4 MAR MAR MANIPULAT RACHEL TX SPINAL 3-4 REGIONS CHIROPRAC 74045 SPERBECK SPERBECK TIC 4 MAR MAR MANIPLTV TX EXTRASPIN AL 1/> REGION EDUCATION 75961 ST NETO WAE &TRAINING 4 EVENS SELF-MGMT PHYSICIAN NONPHYS S 1 PT CHIROPRAC 86654 SPERBECK SPERBECK TIC 4 MAR MAR MANIPLTV TX EXTRASPIN AL 1/> REGION CHIROPRAC 71281 SPERBECK SPERBECK TIC 4 MAR MAR MANIPULAT RACHEL TX SPINAL 3-4 REGIONS TYMPANOME 67573 RUBINSTEI RUBINSTEI TRY 4 N GULSHAN N GULSHAN PURE TONE 67662 RUBINSTEI RUBINSTEI 4 N GULSHAN N GULSHAN AUDIOMETR Y AIR & BONE CHIROPRAC 03984 SPERBECK SPERBECK TIC 4 MAR MAR MANIPULAT RACHEL [place] SPINAL 3-4 REGIONS CHIROPRAC 99068 SPERBECK SPERBECK TIC 4 MAR MAR MANIPLTV TX EXTRASPIN AL 1/> REGION CHIROPRAC 45688 SPERBECK SPERBECK TIC 4 MAR MAR MANIPLTV TX EXTRASPIN AL 1/> REGION CHIROPRAC 59210 SPERBECK SPERBECK TIC 4 MAR MAR MANIPULAT RACHEL [place] SPINAL 3-4 REGIONS CHIROPRAC 24889 SPERBECK SPERBECK TIC 4 MAR MAR MANIPULAT RACHEL TX SPINAL 3-4 REGIONS CHIROPRA 82867 SPERBECK SPERBECK TIC 4 MAR MAR MANIPLTV TX EXTRASPIN AL 1/> REGION CHIROPRAC 86777 SPERBECK SPERBECK TIC 4 MAR MAR MANIPLTV TX EXTRASPIN AL 1/> REGION CHIROPRA 20955 SPERBECK SPERBECK TIC 4 MAR MAR MANIPULAT RACHEL TX SPINAL 3-4 REGIONS CHIROPRA 77997 SPERBECK SPERBECK TIC 4 MAR MAR MANIPULAT RACHEL TX SPINAL 3-4 REGIONS CHIROPRA 11612 SPERBECK SPERBECK TIC 4 MAR MAR MANIPLTV TX EXTRASPIN AL 1/> REGION CHIROPRA 69738 SPERBECK SPERBECK TIC 4 MAR MAR MANIPLTV TX EXTRASPIN AL 1/> REGION CHIROPRA 10406 SPERBECK SPERBECK TIC 4 MAR MAR MANIPULAT RACHEL [place] SPINAL 3-4 REGIONS SBSQ [address] CARE/DAY 25 PHYSICIAN MINUTES S SBSQ [address] CARE/DAY 35 PHYSICIAN MINUTES S SBSQ [address] CARE/DAY 25 PHYSICIAN MINUTES S CENTRAL 3897 ST VENOUS 4 [facility] CATHETER FT FT PLACEMENT HU LUI WITH GUIDANCE SBSQ [address] YEAR LAT CARE/DAY 35 PHYSICIAN MINUTES S NON-INVAS [address]390 ST RACHEL 4 EVENSANDRES HORNER MECHANICA FT FT L HU LUI VENTILATI ON INITIAL 46987 [facility] INPATIENT 4 [facility] FINA CONSULT NEW/ESTAB PHYSICIAN PT 80 S MIN RADIOLOGI 73197 RADIOLOGY NEILS ESTHER C EXAM 4 CHEST 2 ASSOCIATE VIEWS S OF NOTH FRONTAL&L ATERAL OPHTH 78365 [facility] 8 JR, JR, XM&EVAL LISA BELLO NEW PT 1/> VST DETERMINA 24000 JACQUE SANTILLAN TION 8 JR, JR, REFRACTIV [facility] PRESSURI 10268 URGENT ANCIRO, ED/NONPRE 8 MEDICAL ZAHRA SSURIZED CARE INHALATIO N TREATMENT RADIOLOGI 83214 [facility] 8 VILLLissy KUMAR EXAMINATI RADIOLOGY A ON CHEST ASSOC SINGLE VIEW FRONTAL BLOOD 39318 LAB FAZAL LAB FAZAL COUNT 8 [employer] COMPLETE HOLDING HOLDING AUTO&AUTO DIFRNTL WBC URNLS DIP 93352 LAB FAZAL LAB FAZAL 8 AMERIC AMERIC STICK/TAB HOLDING 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 - 7 7 [facility] INPATIENT TREGO OFFICE 42474 [facility] 7 7 [facility] T VISIT 15 PHYSICIAN MINUTES S OFFICE 98064 [facility] 7 7 [facility] T VISIT [address] 7 7 [facility] OUTPATI T [facility] [address]75 [facility] 7 7 [facility] LI T VISIT LOW/MODER SEVERITY OFFICE 23854 [facility] 7 7 [facility] T NEW 45 MINUTES PHYSICIAN S OFFICE 60222 [facility] 7 7 [facility] YEAR T VISIT 15 PHYSICIAN [facility] 7 7 [facility] OFF[facility] 79959 [facility] 7 [facility] T VISIT 25 PHYSICIAN [facility] LUIS MANUEL - 7 7 [facility] OUTPATIEN INC T EMERGENCY 59558 [place] 7 7 [facility] DEPARTMEN INC T VISIT HIGH/URGE NT SEVERITY [facility] - 7 [facility] 27196 ST. 7 7 [facility] LI T VISIT MODERATE SEVERITY [facility]OSP[facility] ST - 7 7 [facility] INPATIENT [facility] LU[facility] - 7 7 [facility] OUTPATIEN INC T EMERGENCY 20308 [place] 7 7 [facility] DEPARTMEN INC T VISIT MODERATE SEVERITY OFFICE 49147 [facility] OUT[facility] 6 6 [facility] LAT T VISIT 15 [facility] - 6 6 [facility] T EDITOR IN CHIEF NEWSPAPER ST EMERGENCY 90623 ST 6 6 [facility] DEPART[facility] T VISIT EDITOR IN CHIEF NEWSPAPER HIGH/URGE NT SEVERITY HOSPITAL ST - 6 6 [facility] EDITOR IN CHIEF NEWSPAPER ST OFFICE 79012 [facility] OUTPATI[facility] 6 6 [facility] GRE T VISIT 15 PHYSICIAN [facility] ST - 6 6 [facility] EDITOR IN CHIEF NEWSPAPER ST OFFICE 63374 [facility] 6 6 [facility] T VISIT 25 PHYSICIAN [facility] ST. - 6 6 [facility] OUT[facility] JULIO T OFFICE 19246 [facility] JEFF ANAYA OUTPATIEN 6 6 [facility] T VISIT 25 PHYSICIAN MINUTES S [facility]PITAL ST - 5 5 [facility] T EDITOR IN CHIEF NEWSPAPER EMERGENCY 56155 ST 5 5 [facility] T VISIT EDITOR IN CHIEF NEWSPAPER MODERATE SEVERITY OFFICE 38821 RUB[facility]EI RUBINSTEI OUTPATIEN 5 5 N [facility] N GULSHAN T VISIT [address] - 5 5 [facility] OFFICE 57677 RUBINSTEI RUBINSTEI OUTPATIEN 5 5 N GULSHAN N GULSHAN T VISIT [address] [facility] OUTPATIEN 4 4 [facility] REG[facility] T VISIT 15 PHYSICIAN MINUTES S OFFICE 79991 [facility] OUTPATIEN 4 4 SPECIALIS LUIS ANGEL T VISIT TS OF 15 GREATER MINUTES OFFICE 89277 [facility] 4 4 [facility] GIANNA T VISIT [address] ACCESS 4 4 [facility] LI OFFICE 99806 FOOT TIRONE OUTPATIEN 4 4 SPECIALIS LUIS ANGEL T VISIT TS OF [address] ACCESS 4 4 [facility] LI EMERGENCY 37354 ST. 4 4 [facility] DEPARTMEN LI T VISIT MODERATE SEVERITY OFFICE 29544 ST [facility] OUTPATIEN 4 4 [facility] YEAR LAT T VISIT 25 PHYSICIAN MINUTES S OFFICE [address] ST RIDDLE OUTPATIEN 4 4 [facility] JAM T VISIT MED CTR [address] - OTHER 4 4 [facility] EDITOR IN CHIEF NEWSPAPER ST OFFICE 49413 [facility] OUTPATIEN 4 4 [facility] REGAN T VISIT 25 PHYSICIAN MINUTES S OFFICE 61820 ST DONNAILLER CONSULTAT 4 4 [facility] GIANNA ION NEW/ESTAB PHYSICIAN PATIENT S 60 MIN OFFICE 86422 RUBINSTEI RUBINSTEI OUTPATIEN 4 4 N GULSHAN N GULSHAN T VISIT 40 MINUTES OFFICE 09442 RUBINSTEI RUBINSTEI OUTPATIEN 4 4 N GULSHAN N GULSHAN T VISIT [address] AGUILAR MAR OUTPATIEN 4 4 [facility] T NEW 45 MINUTES PHYSICIAN S EMERGENCY 93249 ST GALLATIN 4 4 [facility] DUSTIN DEPARTMEN T VISIT PHYSICIAN MODERATE S SEVERITY EMERGENCY 12150 EMERGENCY SELWYN DEPT 4 4 CARE CHRIS VISIT PHYS HIGH NORTHERN SEVERITY& THREAT [facility] ST - 4 4 [facility] OUT[facility] FT T HU OFFICE 61359 ONCOLOGY TERESITA CHR OUTPATIEN 4 4 HEMATOLOG T VISIT Y CARE 15 INC MINUTES EMERGENCY 14146 ST DANRONEYAN 4 4 [facility] H[facility] DEPARTMEN MED CTR T VISIT HIGH/URGE NT SEVERITY OFFICE 03953 [facility] TANGVALD OUTPATIEN 4 4 IV THO IV THO T VISIT [address] BUDHANI OUTPATIEN 4 4 [facility] IRF T VISIT 25 PHYSICIAN [address] S [facility] - 4 4 [facility] T [facility] ST - 4 4 [facility] T EDITOR IN CHIEF NEWSPAPER OFFICE 85088 FOOT TIRONE OUTPATIEN 4 4 SPECIALIS LUIS ANGEL T VISIT TS OF 15 GRE[address] - 4 4 [facility] OFFICE 85468 ONCOLOGY TERESITA CHR OUTPATIEN 4 4 HEMATOLOG T VISIT Y CARE 25 INC MINUTES OFFICE 74153 RUBINSTEI RUBINSTEI OUTPATIEN 4 4 N GULSHAN N GULSHAN T VISIT 40 MINUTES EMERGENCY 43115 EMERGENCY LE HIE DEPT 4 4 CARE VISIT PHYS HIGH NORTHERN SEVERITY& THREAT FUNCJ EMERGENCY 66999 EMERGENCY SHAE HO DEPT 4 4 CARE VISIT PHYS HIGH NORTHERN SEVERITY& THREAT FUNCJ EMERGENCY [id number] EMERGENCY [place] JESUS 4 4 CARE DEPARTMEN PHYS T VISIT [facility] NT SEVERITY OFFICE [address] ST DOUGLAS JAYESH OUTPATIEN 4 4 [place] T VISIT 25 PHYSICIAN MINUTES OFFICE 88958 [facility] CONSULTAT 4 4 [place] [facility] NEW/ESTAB PATIENT [address] - 4 4 [place] OUTPATIEN MED CTR T [facility] ST - 4 4 [place] OUTPATIEN [facility] ST. - 4 4 [place] OUTPATIEN [facility] OFFICE [address] ST DOUGLAS JAYESH OUTPATIEN 4 4 [place] T VISIT 25 PHYSICIAN MINUTES [facility] - 4 4 [place] OUTPATIEN LI T INITIAL [id number] ST VIOLET PREVENTIV 4 4 EVENSANDRES Yuan MEDICINE PHYSICIAN NEW PT S AGE [id number] [facility] ST - 4 4 [place] OUTPATIEN MED CTR T [facility] OFFICE 91577 FOOT TIRONE OUTPATIEN 4 4 SPECIALIS LUIS ANGEL T NEW 30 TS OF MINUTES [facility] OFFICE 06599 RUBINSTEI RUBINSTEI OUTPATIEN 4 4 N GULSHAN N GULSHAN T NEW 60 MINUTES OFFICE 30264 [facility] OUTPATIEN 4 4 MAR SEP T NEW [address]ES [address] DOUGLAS JAYESH OUTPATIEN 4 4 [place] T NEW 45 MINUTES [facility] - 4 4 [facility] EMERGENCY 72136 EMERGENCY DAVREN DEPT 4 4 CARE ESTHER VISIT PHYS HIGH [facility] SEVERITY& THREAT [facility] OFFICE 88003 URGENT ANCIRO, OUTPATIEN 8 8 MEDICAL ZAHRA T NEW 30 CARE MINUTES EMERGENCY 64814 [facility], 8 8 [facility] EMERGENCY C T VISIT PHYS INC HIGH/URGE [facility] [place] - 8 8 [facility] OUTPATIEN D T [facility] OFFICE 81820 JAMES HINSON OUTPATIEN [address], T VISIT [facility] 15 D MINUTES
--- OUTSIDE RECORDS SUMMARY | 2017-05-08 20:37 | External Medical Summary Rpt | CCD ---
Author Author , KENDALL Organization KENDALL Address Unknown Phone [email or web address] Care Team Providers Care Frame Welder Cargo Utility Trailers Name Role Phone FELIX DEL VALLE, Unavailable [...] Unavailable Unavailable [facility] Unavailable Unavailable [facility] DUSTIN, Unavailable Unavailable [facility] HEDRICK-VILLAV, E A, Unavailable Unavailable HEDRICK-VILLAV, E [...] BYR, GARCIA BYR Unavailable Unavailable RIDDLE JAM, RIDLDE Unavailable Unavailable JAM MEDEYINLO BREANNA, Unavailable Unavailable [...] EQUIP ANA GULSHAN, Unavailable Unavailable ANA GULSHAN AAN GULSHAN, Unavailable Unavailable ANA GULSHAN TERESITA CHR, TERESITA CHR Unavailable Unavailable TEMPLETON CHR, TEMPLETON Unavailable Unavailable CHR TEMPLETON JAM, TEMPLETON Unavailable Unavailable JAM SCHMITTER GULSHAN, Unavailable Unavailable SCHMITTER GULSHAN SILVIA TONY, SILVIA TONY Unavailable Unavailable SHARP JESUS, SHARP JESUS Unavailable Unavailable SELWYN CHRIS, Unavailable Unavailable SELWYN CHRIS SPERBECK MAR, Unavailable Unavailable SPERBECK MAR SPERBECK MAR, Unavailable Unavailable SPERBECK MAR [facility] Unavailable Unavailable [facility] Unavailable Unavailable [facility], Unavailable Unavailable [facility] Unavailable Unavailable REACTOR SERVICE OPERATOR [facility] REACTOR SERVICE OPERATOR [facility] Un[facility]ANS[facility] Un[facility] Unavailable [facility], . [facility] Un[facility]ANS[facility] TANGVALD IV THO, Unavailable Unavailable TANGVALD IV THO TANGVALD IV THO, Unavailable Unavailable TANGVALD IV THO [facility] Unavailable Unavailable MEDICAL, [facility] MEDICAL TIRONE LUIS ANGEL, TIRONE Unavailable Unavailable LUIS ANGEL [facility] Unavailable Unavailable [facility], [facility] VON HOENE AMA, VON Unavailable Unavailable HOENE AMA CATIA PHI, Unavailable Unavailable CATIA PHI ELISEO BARDALES, Unavailable Unavailable ELISEO BARDALES WORLEY Unavailable Unavailable FARHEEN CAM, FARHEEN Unavailable Unavailable [facility], LARRY Unavailable Unavailable D, MOEAST, LARRY D [...] G894 CHRONIC 11-20-2016 PAIN [facility] SYNDROME PHYSICIANS [id number] PAIN IN 11-20-2016 RIGHT FOOT [facility] E1142 TYPE 2 11-18-2016 ST. DIABETES [facility] MELLITUS PHYSICIANS W/DIAB POLYNEUROPA THY E790 HYPERURICEM 11-18-2016 ST. IA W/O [facility] SIGNS IA & PHYSICIANS TOPHACEOUS DISEASE [id number] CHRONIC 11-18-2016 . GOUT [facility] UNSPECIFIED PHYSICIANS WITH TOPHUS J4550 SEVERE 10-23-2016 PERSISTENT [facility] UNCOMPLICAT EDGE ED E1140 TYPE 2 DM 09-20-2016 . WITH [facility] DIABETIC LI NEUROPATHY UNSPECIFIED G8929 OTHER 09-20-2016 . CHRONIC [facility] PAIN LI J449 CHRONIC 09-20-2016 . OBSTRUCTIVE [facility] PULMONARY LI DISEASE UNS G47292 UNSPECIFIED 09-20-2016 ST. ASTHMA [facility] UNCOMPLICAT LI ED K219 GASTRO-ESOP 09-20-2016 ST. H REFLUX [facility] DISEASE LI WITHOUT ESOPHAGITIS R1084 GENERALIZED 09-20-2016 ST. ABDOMINAL [facility] PAIN LI R112 NAUSEA WITH 09-20-2016 ST. VOMITING [facility] UNSPECIFIED LI R197 DIARRHEA 09-20-2016 ST. UNSPECIFIED [facility] LI D86711 PAIN IN 09-18-2016 LEFT FOOT [facility] R1011 RIGHT UPPER 09-18-2016 QUADRANT [facility] PAIN PHYSICIANS Z6844 BODY MASS 09-18-2016 ST INDEX BMI [facility] 60.0-69.9 PHYSICIANS ADULT D16355 OTHER LONG 09-18-2016 TERM [facility] CURRENT PHYSICIANS DRUG THERAPY E669 OBESITY 09-17-2016 UNSPECIFIED [facility] G4733 OBSTRUCTIVE 09-17-2016 SLEEP [facility] APNEA ADULT PHYSICIANS PEDIATRIC E1169 TYPE 2 09-09-2016 DIABETES [facility] MELLITUS HEALTHCARE W/OTH SPEC EDGE COMPLICATIO N E229 HYPERFUNCTI 09-09-2016 ST ON OF [facility] PITUITARY [facility]CARE GLAND EDGE UNSPECIFIED E785 HYPERLIPIDE 09-09-2016 TIFFANIE [facility] UNSPECIFIED HEALTHCARE EDGE Z794 CLINICAL IMPLEMENTATION SPECIALIST 09-09-2016 CURRENT USE [facility] OF INSULIN HEALTHCARE EDGE E242 DRUG-INDUCE 08-21-2016 D CUSHINGS [facility] SYNDROME PHYSICIANS E1165 TYPE 2 08-15-2016 LUIS MAN[facility]EL DIABETES [facility] MELLITUS INC WITH HYPERGLYCEM IA R1111 VOMITING 08-15-2016 LUIS MANUEL WITHOUT [facility] NAUSEA INC R162 HEPATOMEGAL 08-15-2016 LUIS MANUEL Y WITH [facility] SPLENOMEGAL INC Y NEC [id number] UNSPECIFIED 08-04-2016 . SPRAIN [facility] RIGHT FOOT LI INITIAL ENCOUNTER Z6843 BODY MASS 08-04-2016 ST. INDEX BMI [facility] 50-59.9 LI ADULT Z7984 CLINICAL IMPLEMENTATION SPECIALIST 08-04-2016 ST. USE OF ORAL [facility] LI HYPOGLYCEMI C DRUGS T86397 PERSONAL 08-04-2016 ST. HISTORY OF [facility] NICOTINE LI DEPENDENCE J4551 SEVERE 07-23-2016 ST PERSISTENT [facility]HMA WITH HEALTHCARE ACUTE EDGE EXACERBATIO N J9601 ACUTE 07-23-2016 RESPIRATORY [facility] FAILURE HEALTHCARE WITH EDGE HYPOXIA K7581 NONALCOHOLI 07-23-2016 C [facility] STEATOHEPAT HEALTHCARE ITIS EDGE X81430 UNSPECIFIED 05-29-2016 ASTHMA [facility] WITH ACUTE PHYSICIANS EXACERBATIO N J9691 RESPIRATORY 11-25-2015 FAILURE [facility] UNSPECIFIED MED CTR REACTOR SERVICE OPERATOR WITH ST HYPOXIA Z9981 DEPENDENCE 10-09-2015 ST ON [facility] SUPPLEMENTA MED CTR REACTOR SERVICE OPERATOR L OXYGEN ST D31969 OTHER 09-24-2015 ASTHMA [facility] PH[facility]IANS R079 CHEST PAIN 09-24-2015 ST UNSPECIFIED [facility] R609 EDEMA 09-24-2015 UNSPECIFIED [facility] R51 HEADACHE 09-04-2015 . [facility] JULIO K8050 CALCULUS BD 07-23-2015 W/O [facility] CHOLANGITIS PHYSICIANS /CHOLECYST W/O OBST 34427 DIAB W/O 01-01-2015 [facility] COMP TYPE MEDICAL II/UNS TYPE UNCNTRL 2518 OTH SPEC 01-01-2015 [facility] PANCREATIC MEDICAL INTERNAL SECRETION V5865 LONG-TERM 01-01-2015 [facility] USE OF HOSPITAL STEROIDS MEDICAL V5867 LONG-TERM 01-01-2015 [facility] USE OF HOSPITAL INSULIN MEDICAL 35659 OBSTRUCTIVE 12-22-2014 [facility] SLEEP [facility] APNEA ASSOCIAT 12036 ASTHMA 12-22-2014 [facility] UNSPECIFIED PULMONARY WITH ASSOCIAT EXACERBATIO N 10320 HYPOXEMIA 12-22-2014 [facility] 3813 OTHER&UNSPE 11-13-2014 ANA C CHRONIC GULSHAN NONSUPPURAT RACHEL OTITIS MEDIA 78054 UNSPECIFIED 11-13-2014 ANA GULSHAN TEMPOROMAND IBULAR JOINT DISORDERS 3829 UNSPECIFIED 09-26-2014 ST OTITIS [facility] MEDIA HEALTHCARE EDGE 29048 HYPERTROPHY 09-26-2014 ST OF [facility] ADENOIDS HEALTHCARE ALONE EDGE 4760 CHRONIC 09-26-2014 ST LARYNGITIS [facility] HEALTHCARE EDGE 4785 OTHER 09-26-2014 ST DISEASES OF [facility] VOCAL HEALTHCARE CORDS EDGE 490 BRONCHITIS 09-26-2014 NOT [facility] SPECIFIED HEALTHCARE ACUTE OR EDGE CHRONIC 11325 DYSPHONIA 09-26-2014 [facility] ED[facility] 09809 DYSPHAGIA 09-26-2014 ST [facility]PECIFIED [facility] 51121 CHRONIC 09-22-2014 ANA ADENOIDITIS GULSHAN 10694 MORBID 08-23-2014 PATIENT OBESITY AIDS INC 71157 CHRONIC 08-23-2014 PATIENT OBSTRUCTIVE AIDS INC [facility] UNSPECIFIED 586 UNSPECIFIED 08-23-2014 PATIENT RENAL AIDS INC FAILURE 2550 CUSHINGS 07-04-2014 SYNDROME [facility] PH[facility]ICIANS 0089 UNSPECIFIED 07-04-2014 VITAMIN D [facility] DEFICIENCY PHYSICIANS 4019 UNSPECIFIED 07-04-2014 ESSENTIAL [facility] HYPERTENSIO PHYSICIANS N V5869 LONG-TERM 07-04-2014 (CURRENT) [facility] USE OF PHYSICIANS OTHER MEDICATIONS 7038 OTHER 06-13-2014 FOOT SPECIFIED SPECIALISTS DISEASE OF OF GREATER NAIL 7295 PAIN IN 06-13-2014 FOOT SOFT SPECIALISTS TISSUES OF OF GREATER LIMB 86676 OTHER 06-13-2014 FOOT DISORDERS SPECIALISTS OF BONE AND OF GREATER CARTILAGE OTHER 46835 UNSPECIFIED 06-13-2014 FOOT SITE OF SPECIALISTS ANKLE OF GREATER SPRAIN AND STRAIN 60944 DIAB W/O 05-14-2014 ST. COMP TYPE [facility] II/UNS NOT LI STATED UNCNTRL 14553 ESOPHAGEAL 05-14-2014 ST. REFLUX [facility] LI V148 PERSONAL 05-14-2014 ST. HISTORY [facility] ALLERGY OTH LI SPEC MEDICINAL AGTS V1507 PERSONAL 05-14-2014 ST. HISTORY OF [facility] ALLERGY TO LI LATEX V1582 PERS HX 05-14-2014 ST. TOBACCO USE [facility] PRESENTING LI [facility] AgBiome 66109 DIAB 05-05-2014 FOOT W/NEURO SPECIALISTS MANIFESTS OF GREATER TYPE II/UNS NOT UNCNTRL 36236 UNSPECIFIED 05-05-2014 FOOT CELLULITIS SPECIALISTS AND OF GREATER ABSCESS OF TOE 7068 OTHER 05-05-2014 FOOT SPECIFIED SPECIALISTS DISEASE OF OF GREATER SEBACEOUS GLANDS 53003 ASTHMA, 04-18-2014 ST. UNSPECIFIED [facility] , LI UNSPECIFIED STATUS 71404 UNSPECIFIED 04-18-2014 ST. SLEEP [facility] APNEA LI V8543 BODY MASS 04-18-2014 ST. INDEX [facility] 50.0-59.9 LI ADULT 1120 CANDIDIASIS 04-12-2014 ST OF MOUTH [facility] PHYSICIANS V5889 ENCOUNTER 04-12-2014 ST FOR OTHER [facility] SPECIFIED PHYSICIANS AFTERCARE V8544 BODY MASS 04-12-2014 INDEX [facility] 60.0-69.9 PHYSICIANS ADULT 6202 OTHER AND 02-08-2014 RADIOLOGY UNSPECIFIED ASSOCIATES OVARIAN [facility] CYST 95085 DEHYDRATION 02-06-2014 ST [facility] 43141 LEUKOCYTOSI 02-06-2014 S [facility] UNSPECIFIED PHYSICIANS 5849 ACUTE 02-06-2014 KIDNEY [facility] FAILURE PHYSICIANS UNSPECIFIED 5939 UNSPECIFIED 02-06-2014 RADIOLOGY DISORDER ASSOCIATES OF KIDNEY OF [facility] AND URETER 43871 NAUSEA WITH 02-06-2014 VOMITING [facility] PH[facility]ANS 59938 NAUSEA 02-06-2014 RADIOLOGY ALONE [facility]OC[facility]ATES [facility] 69940 ABDOMINAL 02-06-2014 PAIN RIGHT [facility] UPPER PHYSICIANS QUADRANT 7891 HEPATOMEGAL 02-06-2014 RADIOLOGY Y [facility] 69092 SHORTNESS 01-16-2014 RADIOLOGY OF BREATH ASSOCIATES OF [facility] 67108 WHEEZING 01-02-2014 DEBORA ANI 54978 OTHER 01-02-2014 DEBORA ANI DYSPNEA AND RESPIRATORY ABNORMALITI ES 7945 NONSPECIFIC 12-26-2013 ABNORM [facility] RESULTS PHYSICIANS THYROID FUNCT STUDY 5259 UNSPECIFIED 11-27-2013 DISORDER [facility] TEETH&SUPPO PHYSICIANS RTING STRUCTURES 78787 OTHER 11-22-2013 EMERGENCY SPECIFIED CARE PHYS CARDIAC [facility] DYSRHYTHMIA S 4779 ALLERGIC 11-17-2013 RHINITIS [facility] CAUSE FT HU UNSPECIFIED 4660 ACUTE 11-13-2013 BRONCHITIS [facility] MED CTR 12173 GENERALIZED 11-10-2013 TANGVALD IV ANXIETY THO DISORDER 0794 HUMAN 11-07-2013 PAPILLOMA [facility] VIRUS IN MED CTR REACTOR SERVICE OPERATOR CCE & UNS ST SITE 82740 MILD 11-07-2013 DYSPLASIA [facility] OF CERVIX MED CTR REACTOR SERVICE OPERATOR ST 62043 PAP SMER 11-07-2013 CERV W/LW [facility] GRADE PHYSICIANS SQUAMOUS INTRAEPITH LES 3149 UNSPECIFIED 11-01-2013 ANEMIA [facility] MED CTR REACTOR SERVICE OPERATOR ST 7867 ABNORMAL 11-01-2013 RADIOLOGY CHEST ASSOCIATES SOUNDS [facility] 5718 OTHER 10-21-2013 RADIOLOGY CHRONIC ASSOCIATES NONALCOHOLI OF [facility] C LIVER DISEASE 07478 ABDOMINAL 10-21-2013 RADIOLOGY PAIN, ASSOCIATES UNSPECIFIED OF [facility] SITE 49494 ABDOMINAL 10-20-2013 EMERGENCY PAIN OTHER CARE PHYS SPECIFIED NORTHERN SITE 1101 DERMATOPHYT 10-06-2013 FOOT OSIS OF SPECIALISTS NAIL OF GREATER 486 PNEUMONIA, 10-05-2013 ST ORGANISM [facility] UNSPECIFIED PHYSICIANS 73483 CHEST PAIN 09-25-2013 RADIOLOGY UNSPECIFIED [facility] 20403 DISPLCMT 09-22-2013 [facility] LUMBAR MAR 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 7233 CERVICOBRAC 09-22-2013 [facility] HIAL MAR SYNDROME 8398 CLOSED 09-22-2013 [facility] DISLOCATION MAR MULTIPLE&IL L-DEFINED SITES 8471 THORACIC 09-22-2013 [facility] SPRAIN AND MAR STRAIN 90999 UNSPECIFIED 09-17-2013 EMERGENCY INFECTIVE CARE PHYS OTITIS [facility] EXTERNA 462 ACUTE 09-17-2013 EMERGENCY PHARYNGITIS CARE PHYS [facility] 4871 INFLUENZA 09-14-2013 ST WITH OTHER [facility] RESPIRATORY PHYSICIANS MANIFESTATI ONS 7232 CERVICOCRAN 09-13-2013 [facility] IAL MAR SYNDROME 3899 UNSPECIFIED 09-07-2013 ST HEARING [facility] LOSS MED CTR REACTOR SERVICE OPERATOR ST 470 DEVIATED 09-07-2013 ST NASAL [facility] SEPTUM MED CTR REACTOR SERVICE OPERATOR ST V140 PERSONAL 09-07-2013 ST HISTORY OF [facility] ALLERGY TO MED CTR REACTOR SERVICE OPERATOR PENICILLIN ST 6261 SCANTY OR 09-03-2013 ST INFREQUENT [facility] MENSTRUATIO FT HU N 7842 SWELLING 08-29-2013 ST. MASS OR [facility] LUMP IN LI HEAD AND NECK V7231 ROUTINE 08-25-2013 ST GYNECOLOGIC [facility] AL PHYSICIANS EXAMINATION 53470 OBESITY 07-17-2013 ST HYPOVENTILA [facility] TION FT HU SYNDROME 84225 ASTHMA 07-17-2013 ST UNSPECIFIED [facility] WITH FT HU STATUS ASTHMATICUS 22174 ACUTE AND 07-17-2013 ST CHRONIC [facility] RESPIRATORY FT HU FAILURE 3671 MYOPIA 07-03-2008 JR JACQUE, LISA Yuan 7862 COUGH 06-29-2008 URGENT MEDICAL CARE 98969 MODERATE 06-21-2008 [facility] OF [...] 00 14 7 KR 63 FA Ac RI 11 -0 -1 .0 OG 70 UL [...] Procedure DOS Code Location Performer Comment INSERTION [id number] [facility] INFUSION 7 [facility] JULIO JULIO SUPERIOR VENA CAVA PERQ THERAPEUT 24245 [facility] IC 7 [facility] PROPHYLAC TIC/DX HEALTHCAR HEALTHCAR INJECTION E EDGE E EDGE SUBQ/IM THERAPEUT 55242 [facility] IC 7 [facility] PROPHYLAC LI LI TIC/DX INJECTION SUBQ/IM BLOOD 00283 [facility] COUNT 7 [facility] CHOUTH COMPLETE LI LI AUTO&[place] [address] [facility]. LIPASE 7 [facility] ISSABETH LI LI BASIC 72242 [facility]. METABOLIC 7 [facility] PANEL LI LI CALCIUM TOTAL COLLECTIO 68686 [facility]. N VENOUS 7 [facility] BLOOD LI LI VENIPUNCT URE HEPATIC 47640 [facility]. FUNCTION 7 [facility] ISSABETH PANEL LI LI LIPID 23737 [facility] PANEL 7 [facility] HE[place] [address] [facility] GLYCATED 7 [facility] PROTEIN HEALTHCAR HEALTHCAR E EDGE E EDGE COLLECTIO 58328 [facility] N VENOUS 7 [facility] BLOOD VENIPUNCT HEALTHCAR HEALTHCAR URE E EDGE E EDGE 25 00568 [facility] HYDROXY 7 [facility] INCLUDES FRACTIONS HEALTHCAR HEALTHCAR IF E EDGE E EDGE PERFORMED THERAPEUT 15212 [facility] IC 7 [facility] PROPHYLAC TIC/DX HEALTHCAR HEALTHCAR INJECTION E EDGE E EDGE SUBQ/IM MRI BRAIN 65411 [facility] BRAIN 7 [facility] STEM W/O W/CONTRAS HEALTHCAR HEALTHCAR T E EDGE E EDGE MATERIAL HEMOGLOBI 27716 [facility] N 7 [facility] GLYCOSYLA ANDERS A1C HEALTHCAR HEALTHCAR E EDGE E EDGE GONADOTRO 62843 LU[facility] MAN[facility]EL ISSA PIN 7 [facility] CHORIONIC INC INC QUALITATI VE BLOOD 91459 [facility] MAN[facility]EL ISSA COUNT 7 [facility] COMPLETE INC INC AUTO&AUTO DIFRNTL WBC URNLS DIP 88982 [facility] ISSA 7 [facility] STICK/TAB INC INC LET REAGENT AUTO MICROSCOP Y THERAPEUT 98489 [facility] ISSA IC 7 [facility] PROPHYLAC INC INC TIC/DX INJECTION SUBQ/[place] [address] LU[facility] MAN[facility]EL ISSA AMYLASE 7 [facility] INC INC INJECTION J0595 [facility] MAN[facility]EL ISSA 7 [facility] BUTORPHAN INC INC OL TARTRATE [address] [place] [address] LUIS MANUEL LUIS MANUEL LIPASE 7 [facility] [place] [address] LUIS MANUEL LUIS MANUEL ABDOMEN & 7 [facility] PELVIS INC INC W/O CONTRAST MATERIAL COMPREHEN 34775 LUIS MANUEL LUIS MANUEL SIVE 7 [facility] METABOLIC INC INC PANEL THERAPEUT [address] IC 7 [facility] PROPHYLAC TIC/DX HEALTHCAR HEALTHCAR INJECTION E EDGE E EDGE SUBQ/IM RADEX [address] ANKLE 7 [facility] COMPLETE LI LI MINIMUM [address] FOOT 7 [facility] COMPLETE LI LI MINIMUM 3 VIEWS INJECTION J2405 LU[facility] MANUEL ISSA 7 [facility] ONDANSETR INC INC ON HCL PER [address] [place] [address] LUIS MANUEL ISSA LACTATE 7 [facility] [place] [address] LUIS MANUEL ISSA LIPASE 7 [facility] INC INC URNLS DIP 25746 LU[facility] MANUEL ISSA 7 [facility] STICK/TAB INC [place] [address] LUIS MANUEL ISSA INFUSION 7 [facility] THERAPY/P INC INC ROPHYLAXI S /DX 1ST TO 1 HR THERAPEUT 54267 LUIS MANUEL ISSA IC 7 [facility] INJECTION INC INC IV PUSH EACH NEW DRUG CULTURE 61388 LU[facility]UEL ISSA BACTERIAL 7 [facility] BLOOD INC INC AEROBIC W/ID ISOLATES GONADOTRO 65840 LUIS MANUEL ISSA PIN 7 [facility] CHORIONIC INC INC QUALITATI VE BLOOD 92817 LUIS MANUEL ISSA COUNT 7 [facility] COMPLETE INC INC AUTO&AUTO DIFRNTL WBC COMPREHEN 21779 LUIS MANUEL ISSA SIVE 7 [facility] METABOLIC INC INC PANEL COLLECTIO 81712 LUIS MANUEL ISSA N VENOUS 7 [facility] BLOOD INC INC VENIPUNCT URE THER 85618 LUIS MANUEL ISSA PROPH/DX 7 [facility]OS[facility] NJX EA INC INC SEQL IV PUSH SBST/DRUG FAC NONINVASI [address] VE 6 [facility] EAR/PULSE MED CTR MED CTR OXIMETRY REACTOR SERVICE OPERATOR ST REACTOR SERVICE OPERATOR [facility] OBSERVATI 6 [facility] ON MED CTR MED CTR SERVICE REACTOR SERVICE OPERATOR ST REACTOR SERVICE OPERATOR ST PER HOUR THERAPEUT [address] IC 6 [facility] PROPHYLAC MED CTR MED CTR TIC/DX REACTOR SERVICE OPERATOR ST REACTOR SERVICE OPERATOR ST INJECTION SUBQ/IM PRESSURIZ [address] ED/NONPRE 6 [facility] SSURIZED MED CTR MED CTR INHALATIO REACTOR SERVICE OPERATOR ST REACTOR SERVICE OPERATOR ST N TREATMENT CPAP [address] VENTILATI 6 [facility] ON CPAP MED CTR MED CTR INITIATIO REACTOR SERVICE OPERATOR ST REACTOR SERVICE OPERATOR ST N&MGMT GLUC BLD [address] GLUC MNTR 6 [facility] DEV MED CTR MED CTR CLEARED REACTOR SERVICE OPERATOR ST REACTOR SERVICE OPERATOR ST FDA SPEC HOME USE CPAP [address] VENTILATI 6 [facility] ON CPAP MED CTR MED CTR INITIATIO REACTOR SERVICE OPERATOR ST REACTOR SERVICE OPERATOR ST N&MGMT PRESSURIZ [address] ED/NONPRE 6 [facility] SSURIZED MED CTR MED CTR INHALATIO REACTOR SERVICE OPERATOR ST REACTOR SERVICE OPERATOR ST N TREATMENT THERAPEUT [address] IC 6 [facility] PROPHYLAC MED CTR MED CTR TIC/DX REACTOR SERVICE OPERATOR ST REACTOR SERVICE OPERATOR ST INJECTION SUBQ/IM GLUC BLD [address] GLUC MNTR 6 [facility] EEVNS DEV MED CTR MED CTR CLEARED REACTOR SERVICE OPERATOR ST REACTOR SERVICE OPERATOR ST FDA SPEC HOME USE NONINVASI [address]9424 ST ST VE 6 [facility] EAR/PULSE MED CTR MED CTR OXIMETRY REACTOR SERVICE OPERATOR ST REACTOR SERVICE OPERATOR [facility] [address] OBSERVATI 6 [facility] ON MED CTR MED CTR SERVICE REACTOR SERVICE OPERATOR ST REACTOR SERVICE OPERATOR ST PER HOUR THER [address] ST [address] PROPH/DX 6 [facility] NJX EA MED CTR MED CTR SEQL IV REACTOR SERVICE OPERATOR ST REACTOR SERVICE OPERATOR ST PUSH SBST/DRUG FAC THER [address] ST [address] PROPH/DX 6 [facility] NJX EA MED CTR MED CTR SEQL IV REACTOR SERVICE OPERATOR ST REACTOR SERVICE OPERATOR ST PUSH SBST/DRUG FAC [facility]OSPITAL G0378 ST ST OBSERVATI 6 [facility] ON MED CTR MED CTR SERVICE REACTOR SERVICE OPERATOR ST REACTOR SERVICE OPERATOR ST PER HOUR NONINVASI [address] VE 6 [facility] EAR/PULSE MED CTR MED CTR OXIMETRY REACTOR SERVICE OPERATOR ST REACTOR SERVICE OPERATOR ST MULTIPLE DETER PRESSURIZ [address] ED/NONPRE 6 [facility] SSURIZED MED CTR MED CTR INHALATIO REACTOR SERVICE OPERATOR ST REACTOR SERVICE OPERATOR ST N TREATMENT THERAPEUT [address] IC 6 [facility] PROPHYLAC MED CTR MED CTR TIC/DX REACTOR SERVICE OPERATOR ST REACTOR SERVICE OPERATOR ST INJECTION SUBQ/IM CPAP [address] VENTILATI 6 [facility] ON CPAP MED CTR MED CTR INITIATIO REACTOR SERVICE OPERATOR ST REACTOR SERVICE OPERATOR ST N&MGMT GLUC BLD [address] GLUC MNTR 6 [facility] DEV MED CTR MED CTR CLEARED REACTOR SERVICE OPERATOR ST REACTOR SERVICE OPERATOR ST FDA SPEC HOME USE [address] HYDROXY 6 [facility] INCLUDES MED CTR MED CTR FRACTIONS REACTOR SERVICE OPERATOR ST REACTOR SERVICE OPERATOR ST IF PERFORMED RADIOLOGI [address] ST ST C EXAM 6 [facility] CHEST 2 MED CTR MED CTR VIEWS REACTOR SERVICE OPERATOR ST REACTOR SERVICE OPERATOR ST FRONTAL&L ATERAL GLUC BLD [address] GLUC MNTR 6 [facility] DEV MED CTR MED CTR CLEARED REACTOR SERVICE OPERATOR ST REACTOR SERVICE OPERATOR ST FDA SPEC HOME USE PRESSURIZ [address] ED/NONPRE 6 [facility] SSURIZED MED CTR MED CTR INHALATIO REACTOR SERVICE OPERATOR ST REACTOR SERVICE OPERATOR ST N TREATMENT THERAPEUT [address] IC 6 [facility] INJECTION MED CTR MED CTR IV PUSH REACTOR SERVICE OPERATOR ST REACTOR SERVICE OPERATOR ST EACH NEW DRUG THER [address] ST [address] PROPH/DX 6 [facility] NJX IV MED CTR MED CTR PUSH REACTOR SERVICE OPERATOR ST REACTOR SERVICE OPERATOR ST SINGLE/1S T SBST/DRUG ECG [address] ROUTINE 6 [facility] ECG MED CTR MED CTR W/LEAST REACTOR SERVICE OPERATOR ST REACTOR SERVICE OPERATOR ST 12 LDS TRCG ONLY W/O I&R GONADOTRO [address] PIN 6 [facility] CHORIONIC MED CTR MED CTR REACTOR SERVICE OPERATOR ST REACTOR SERVICE OPERATOR ST QUALITATI VE BLOOD [address] COUNT 6 [facility] COMPLETE MED CTR MED CTR AUTO&AUTO REACTOR SERVICE OPERATOR ST REACTOR SERVICE OPERATOR ST DIFRNTL WBC DRUG [address] SCREEN 6 [facility] QUANTIT[facility] RACHEL REACTOR SERVICE OPERATOR ST REACTOR SERVICE OPERATOR ST THEOPHYLL INE NONINVASI [address] VE 6 [facility]/P[facility]SE [facility] MED CTR OXIMETRY REACTOR SERVICE OPERATOR ST REACTOR SERVICE OPERATOR ST [facility] [id number] OBSERVATI 6 [facility] SERVICE REACTOR SERVICE OPERATOR ST REACTOR SERVICE OPERATOR ST PER HOUR COLLECTIO [address] ST [address] N VENOUS 6 [facility] CTR VENIPUNCT REACTOR SERVICE OPERATOR ST REACTOR SERVICE OPERATOR ST URE THER [address] PROPH/DX 6 [facility] SEQL IV REACTOR SERVICE OPERATOR ST REACTOR SERVICE OPERATOR ST PUSH SBST/DRUG FAC BASIC [address] METABOLIC 6 [facility] PANEL [facility] CALCIUM REACTOR SERVICE OPERATOR ST REACTOR SERVICE OPERATOR ST TOTAL OBSERVATI 80475 ST [facility] ON CARE 6 [facility] DISCHARGE PHYSICIAN MANAGEMEN S T SBSQ 60054 [facility] OBSERVATI 6 [facility]/DAY PHYSICIAN 25 S MINUTES INITIAL [address] [facility] OBSERVATI 6 [facility]/DAY PHYSIC[place] [address] [place] [address] HEAD/BRAI 6 [facility] N W/O & [facility]IN [facility] W/CONTRAS T MATERIAL CREATININ [address] [facility]. E BLOOD 6 [facility] [place] JULIO RADEX [address] FOOT 5 [facility] COMPLE[facility] MED CTR MINIMUM [address] REACTOR SERVICE OPERATOR ST VIEWS SBSQ [address] [facility] 5 [facility] 35 MEDICAL MEDICAL MINUTES INITIAL 98107 [facility] INPATIENT 5 [facility] CONSULT PULMONARY [...] POSITIVE EQUIP EQUIP AIRWAY PRESSURE DEVICE PRESSURIZ 42470 [facility] ED/NONPRE 5 [facility] SSURIZED INHALATIO HEALTHCAR [...] 85%/>02 CON[facility] AT PRSC FLW RATE COLLECTIO [address] N VENOUS 4 [facility] BLOOD LI LI VENIPUNCT URE COMPREHEN [address] [facility] [address] SIVE 4 [facility] [place] [address] [facility] INFUSION 4 [facility] HYDRATION LI LI EACH ADDITIONA L HOUR GLUC BLD 87177 [facility] GLUC MNTR 4 [facility] DEV LI LI CLEARED FDA SPEC HOME USE O2 CONC 1 [id number] PATIENT PATIENT DEL PORT 4 AIDS INC AIDS INC 85%/>02 [facility] AT PRSC FLW RATE RADEX [address] 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 [facility] [address] [place] [facility]GE 4 [facility] DAY MANAGEMEN PHYSICIAN T 30 S MIN/< HOSPITAL [address] DISCHARGE 4 [facility] DAY MANAGEMEN PHYSICIAN PHYSICIAN T 30 S S MIN/< [place] [address] RADIOLOGY DEVIN TRANSVAGI 4 III LADONNA NAL ASSOCIATE S OF [facility] US PELVIC 86301 RADIOLOGY DEVIN 4 III LADONNA NONOBSTET ASSOCIATE SHAUN S OF [facility] REAL-TIME IMAGE COMPLETE HEPATOBIL 33090 RADIOLOGY ROBER IAKRYSTEN SYST 4 TONY IMAGING ASSOCIATE INCLUDING S OF [facility] [place] [address] RADIOLOGY BRO ABDOMINAL 4 BRA REAL ASSOCIATE TIME S OF [place] W/[place] [address] RADIOLOGY ROBER RETROPERI 4 TONY TONEAL ASSOCIATE REAL TIME S OF NOT W/IMAGE COMPLETE INITIAL 56872 [facility] INPATIENT 4 [facility] PHI CONSULT NEW/ESTAB PHYSICIAN PT 80 S MIN RADIOLOGI 46014 PROFESSIO MUSSMAN C EXAM 4 NAL ADA CHEST 2 RADIOLOGY VIEWS INC. FRONTAL&L ATERAL EXCISION 17546 FOOT TIRONE NAIL 4 SPECIALIS LUIS ANGEL MATRIX TS OF PERMANENT GREATER REMOVAL ECG 87399 ABDALLAH ABDALLAH ROUTINE 4 ELIGIO ELIGIO ECG W/LEAST 12 LDS I&R ONLY RADIOLOGI 87832 DEBORA DEBORA C 4 ANI ANI EXAMINATI ON CHEST SINGLE VIEW FRONTAL GLUC BLD 76956 ST HERMILLER GLUC MNTR 4 [facility] GIANNA DEV CLEARED PHYSICIAN FDA SPEC S HOME USE EXCISION 02650 FOOT TIRONE NAIL 4 SPECIALIS LUIS ANGEL MATRIX TS OF PERMANENT GREATER REMOVAL MEDICAL [address]8611 ST HER[facility]ER NUTRITION 4 [facility] GIANNA THERAPY GRP2/ PHYSICIAN INDIV EA S 30 DC SBSQ 17396 [facility] 4 [facility] SOP CARE/DAY 25 PHYSICIAN MINUTES S INITIAL 16003 [facility] 4 [facility] CARE/DAY 70 PHYSICIAN MINUTES S RADIOLOGI 61714 RADIOLOGY WALESKA C EXAM 4 SIMEON CHEST 2 ASSOCIATE VIEWS S OF NOT FRONTAL&L ATERAL POLYSOM 21590 ST RIDDLE 6/>YRS 4 [facility] JAM SLEEP MED CTR W/CPAP 4/> ADDL CHUY ATTND ALLERGEN [address] SPECIFIC 4 [facility] CHOUTH IGE FT FT KARLA/SEMI HU LUI KARLA EA ALLERGEN ANTIBODY [address] REYNALDO 4 [facility] CHOUTH FT FT HU LUI COLLECTIO [address] N VENOUS 4 [facility] HORNER BLOOD FT FT VENIPUNCT HU LUI URE COLLECTIO 71715 ONCOLOGY TERESITA CHR N VENOUS 4 HEMATOLOG BLOOD Y CARE VENIPUNCT INC URE BLOOD 93249 ONCOLOGY TERESITA CHR COUNT 4 HEMATOLOG COMPLETE Y CARE AUTO&AUTO INC DIFRNTL WBC RADIOLOGI 49520 RADIOLOGY GARCIA BYR C EXAM 4 CHEST 2 ASSOCIATE VIEWS S OF NOTH FRONTAL&L ATERAL ECG [address]80 ST HULLER ROUTINE 4 [facility] RAL ECG MED CTR W/LEAST 12 LDS I&R ONLY URINE 35918 ST VON [place] 4 [facility] AMA TEST VISUAL PHYSICIAN [place] [address] SURG 4 [facility] EVENS PATHOLOGY MED CTR MED CTR REACTOR SERVICE OPERATOR ST REACTOR SERVICE OPERATOR ST GROSS&ZAYRA ROSCOPIC EXAM COLPOSCOP 45433 ST VON [place] Y CERVIX 4 [facility]ENS AMA BX CERVIX & PHYSICIAN ENDOCRV S CURRETAGE FLOW [address] CYTOMETRY 4 [facility] EVENS CELL MED CTR MED CTR SURF REACTOR SERVICE OPERATOR ST REACTOR SERVICE OPERATOR ST MARKER TECHL ONLY 1ST TISS CUL [address] HAKAN 4 [facility]ENS EVENS DISORDERS MED CTR MED CTR BONE REACTOR SERVICE OPERATOR ST REACTOR SERVICE OPERATOR ST MARROW BLOOD CELLS GLUC BLD [address] GLUC MNTR 4 [facility] EVENS DEV MED CTR MED CTR CLEARED REACTOR SERVICE OPERATOR ST REACTOR SERVICE OPERATOR ST FDA SPEC HOME USE BLOOD [address] COUNT 4 [facility] EVENS COMPLETE MED CTR MED CTR AUTO&AUTO REACTOR SERVICE OPERATOR ST REACTOR SERVICE OPERATOR ST DIFRNTL WBC INJECTION J2250 ST ST 4 EVENS EVENS MIDAZOLAM MED CTR MED CTR HCL PER REACTOR SERVICE OPERATOR ST REACTOR SERVICE OPERATOR ST [address] MORPHINE 4 [facility] EVENS SULFATE MED CTR MED CTR UP TO [address] REACTOR SERVICE OPERATOR ST MG BN MARROW G0364 RADIOLOGY SCHMITTER ASPIR 4 GULSHAN PRFRM ASSOCIATE W/BX SAME S OF NOTH INCI SAME DOS RADIOLOGI [address] C EXAM 4 EVENS EVENS CHEST 2 MED CTR MED CTR VIEWS REACTOR SERVICE OPERATOR ST REACTOR SERVICE OPERATOR ST FRONTAL&L ATERAL FLOW 11557 ST KWAME DAKSHA CYTOMETRY 4 [facility] MED CTR INTERPRET ATION 16/> MARKERS SPCL STN 20370 ST KWAME DAKSHA 2 I&R 4 [facility] EXCPT MED CTR MICROORG/ ENZYME/IM CYT DECALCIFI 33642 ST KWAME DAKSHA CATION 4 [facility] PROCEDURE MED CTR IMHISTOCH 48186 ST KWAME DAKSHA EM/CYTCHM 4 [facility] 1ST MED CTR ANTIBODY STAIN PROCEDURE BLOOD 01646 ST KWAME DAKSHA SMEAR 4 [facility] PERIPHERA MED CTR L INTERP PHYS W/WRIT REPORT BONE 01210 ST KWAME DAKSHA MARROW 4 [facility] SMEAR MED CTR INTERPRET ATION INJECTION J3010 ST ST FENTANYL 4 [facility]ENS EVENS CITRATE MED CTR MED CTR 0.1 MG REACTOR SERVICE OPERATOR ST REACTOR SERVICE OPERATOR ST PRESSURIZ [address] ED/NONPRE 4 [facility]ENS SSURIZED MED CTR MED CTR INHALATIO REACTOR SERVICE OPERATOR ST REACTOR SERVICE OPERATOR ST N TREATMENT FLOW [address] CYTOMETRY 4 [facility] EVENS CELL MED CTR MED CTR SURF REACTOR SERVICE OPERATOR ST REACTOR SERVICE OPERATOR ST [place] [address] [address] KWAME DAKSHA SURG 4 EVENS PATHOLOGY MED CTR GROSS&[place] [address] GUIDANCE 4 EVENS EVENS NEEDLE MED CTR MED CTR PLACEMENT REACTOR SERVICE OPERATOR ST REACTOR SERVICE OPERATOR ST BONE [address] MARROW 4 [facility] BIOPSY MED CTR MED CTR NEEDLE/TR REACTOR SERVICE OPERATOR ST REACTOR SERVICE OPERATOR ST OCAR CHRMSM [address] ANALYZE 4 [facility]ENS EVENS - MED CTR MED CTR CELLS REACTOR SERVICE OPERATOR ST REACTOR SERVICE OPERATOR ST MODERATE 30345 [facility] G[place]AN SAME ASSOCIATE PHYS/QHP S OF NOTH 5/>YRS INIT 30 MIN BLD GLU A4253 LIBERATOR LIBERATOR TEST/REAG 4 MEDICAL MEDICAL T STRIPS SUPPLY SUPPLY HOME BLD INC INC GLU MON-[address] 6/>YRS 4 EVENS EVENS SLEEP 4/> FT FT ADDL HU LUI CHUY ATTND BLOOD 03595 ONCOLOGY ONCOLOGY COUNT 4 HEMATOLOG HEMATOLOG COMPLETE Y CARE Y CARE AUTO&[place] [address] RADIOLOGY BRANDSER ABDOMEN & 4 ESTHER PELVIS ASSOCIATE W/O S OF NOTH CONTRAST MATERIAL TYMPANOME 31722 RUBINSTEI RUBINSTEI TRY 4 N GULSHAN N GULSHAN PURE TONE 08275 RUBINSTEI RUBINSTEI 4 N GULSHAN N GULSHAN AUDIOMETR Y AIR & BONE EXCISION 64304 FOOT TIRONE NAIL 4 SPECIALIS LUIS ANGEL MATRIX TS OF PERMANENT GREATER REMOVAL SBSQ [address] IRF CARE/DAY 25 PHYSICIAN MINUTES [facility] 49818 [facility] 4 [facility] MANAGEMEN PHYSICIAN T 30 S MIN/< SBSQ [address] CARE/DAY 25 PHYSICIAN MINUTES S SBSQ [address] IRF CARE/DAY 35 PHYSICIAN MINUTES S SBSQ [address] IRF CARE/DAY 35 PHYSICIAN MINUTES S SBSQ [address] CARE/DAY 25 PHYSICIAN MINUTES S SBSQ [address] IRF CARE/DAY 35 PHYSICIAN MINUTES S SBSQ [address] IRF CARE/DAY 35 PHYSICIAN MINUTES S SBSQ [address] BREANNA CARE/DAY 25 PHYSICIAN MINUTES S SBSQ [address] SOP CARE/DAY 25 PHYSICIAN MINUTES S SBSQ [address] SOP CARE/DAY 25 PHYSICIAN MINUTES S INITIAL 07724 [facility] INPATIENT 4 [facility] BREANNA CONSULT NEW/ESTAB PHYSICIAN PT 80 S MIN INITIAL 79742 ONCOLOGY TERESITA CHR INPATIENT 4 HEMATOLOG CONSULT Y CARE NEW/ESTAB INC PT 80 MIN SBSQ [address] CARE/DAY 25 PHYSICIAN MINUTES S INITIAL [address] CARE/DAY 70 PHYSICIAN MINUTES S RADIOLOGI 40664 RADIOLOGY TEMPLETON C 4 JAM EXAMINATI ASSOCIATE ON CHEST S OF [facility] SINGLE VIEW FRONTAL CRITICAL 49174 EMERGENCY SELWYN CARE 4 CARE CHRIS ILL/INJUR PHYS ED [facility] PATIENT INIT 30-74 MIN CHIROPRAC 64355 SPERBECK SPERBECK TIC 4 MAR MAR MANIPLTV TX EXTRASPIN AL 1/> REGION CHIROPRAC 28647 SPERBECK SPERBECK TIC 4 MAR MAR MANIPULAT RACHEL TX SPINAL 3-4 [facility] [address] [facility] DISCHARGE 4 DAY MANAGEMEN PHYSICIAN T 30 S MIN/< SBSQ [address] CARE/DAY 25 PHYSICIAN MINUTES S RADIOLOGI 32957 RADIOLOGY GARCIA BYR C EXAM 4 CHEST 2 ASSOCIATE VIEWS S OF NOTH FRONTAL&L ATERAL CHIROPRA 08639 SPERBECK SPERBECK TIC 4 MAR MAR MANIPULAT RACHEL [place] SPINAL 3-4 REGIONS CHIROPRAC 88419 SPERBECK SPERBECK TIC 4 MAR MAR MANIPLTV TX EXTRASPIN AL 1/> REGION IAADIADOO [address] ST DOUGLAS JAYESH 4 EVENS INFLUENZA PHYSICIAN S [facility] [address] [facility] DOU[facility]AS JAYESH 4 EVENS STREPTOCO CCUS PHYSICIAN GROUP A S CHIROPRAC 23249 SPERBECK SPERBECK TIC 4 MAR MAR MANIPLTV TX EXTRASPIN AL 1/> REGION CHIROPRAC 71298 SPERBECK SPERBECK TIC 4 MAR MAR MANIPULAT RACHEL TX SPINAL 3-4 REGIONS EXCISION 00107 FOOT TIRONE NAIL 4 SPECIALIS LUIS ANGEL MATRIX TS OF PERMANENT GREATER REMOVAL URINE [address] 4 EVENS EVENS TEST MED CTR MED CTR VISUAL REACTOR SERVICE OPERATOR ST REACTOR SERVICE OPERATOR ST COLOR CMPRSN METHS PRESSURIZ [address] ED/NONPRE 4 EVENSARI HORNER SSURIZED MED CTR MED CTR INHALATIO REACTOR SERVICE OPERATOR ST REACTOR SERVICE OPERATOR ST N TREATMENT GLUC BLD [address] GLUC MNTR 4 EVENSARI CHOUTH DEV MED CTR MED CTR CLEARED REACTOR SERVICE OPERATOR ST REACTOR SERVICE OPERATOR ST FDA SPEC HOME USE INJECTION J0131 ST ST 4 EVENSARI CHOUTH ACETAMINO MED CTR MED CTR PHEN 10 REACT[address] SERVICE OPERATOR ST REACTOR SERVICE OPERATOR ST MG INJECTION J2250 ST ST 4 EVENSARI CHOUTH MIDAZOLAM MED CTR MED CTR HCL PER REACTOR SERVICE OPERATOR ST REACTOR SERVICE OPERATOR ST 1 MG ANES 16994 INDEPENDE KLANKE XTRNL MID 4 NT JUS & INNER ANESTHESI EAR W/BX OLOGIST TYMPANOTO MY TYMPANOST [address] ELISHA 4 [facility] HORNER GENERAL MED CTR MED CTR ANESTHESI REACTOR SERVICE OPERATOR ST REACTOR SERVICE OPERATOR ST A INJ J1720 ST ST HYDROCORT 4 EVENS HORNER ISONE MED CTR MED CTR SODIUM REACTOR SERVICE OPERATOR ST REACTOR SERVICE OPERATOR ST SUCCINATE TO [address] 4 EVESNARI HORNER ONDANSETR MED CTR MED CTR ON HCL REACTOR SERVICE OPERATOR ST REACTOR SERVICE OPERATOR ST PER [address] IN[address] 4 [facility]ENS HORNER DEXAMETHO MED CTR MED CTR SONE REACTOR SERVICE OPERATOR ST REACTOR SERVICE OPERATOR ST SODIUM PHOSPHATE [address] PIN 4 [facility]ENS HORNER [place] [address] TRANSVAGI 4 [place] [address] PROLACTIN 4 [place] [address] TESTOSTER 4 EVENS HORNER ONE TOTAL FT FT HU LUI GONADOTRO [address] PIN 4 EVENS HORNER FOLLICLE FT FT STIMULATI HU LUI NG HORMONE US PELVIC [address] 4 EVENS EVENS NONOBSTET FT FT SHAUN HU LUI REAL-TIME IMAGE COMPLETE COLLECTIO [address] N VENOUS 4 [facility] HORNER BLOOD FT FT VENIPUNCT HU LUI URE CHIROPRAC 99396 SPERBECK SPERBECK TIC 4 MAR MAR MANIPULAT RACHEL [place] SPINAL 3-4 REGIONS CHIROPRAC 79653 SPERBECK SPERBECK TIC 4 MAR MAR MANIPLTV TX EXTRASPIN AL 1/> REGION INJ A[address] GADOBENAT 4 [facility]ENS HORNER E LI LI DIMEGLUMI NE MULTIHANC E PER ML MRI BRAIN 33777 RADIOLOGY XIMENA BRAIN 4 TONY STEM W/O ASSOCIATE W/CONTRAS S OF NOT T MATERIAL MEDICAL 91560 ST NETO WAE NUTRITION 4 [facility]ENS THERAPY GRP2/ PHYSICIAN INDIV EA S 30 DC CHIROPRAC 77717 SPERBECK SPERBECK TIC 4 MAR MAR MANIPLTV TX EXTRASPIN AL 1/> REGION CHIROPRAC 51156 SPERBECK SPERBECK TIC 4 MAR MAR MANIPULAT RACHEL [place] SPINAL 3-[address] TION RATE 4 [facility] HORNER RBC LI LI AUTOMATED LOCM Q9967 ST. ST. 300-399 4 [facility] HORNER MG/ML LI LI IODINE CONCENTRA TION PER ML CT SOFT [address] TISSUE 4 [facility] HORNER NECK LI LI W/CONTRAS T MATERIAL CREATININ [address] E BLOOD 4 [facility] CHOUTH LI LI BLOOD [address] COUNT 4 [facility] HORNER COMPLETE LI LI AUTOMATED HEMOGLOBI [address] N 4 [facility] HORNER GLYCOSYLA LI LI ANDERS A1C NORMAL A4256 LIBERATOR LIBERATOR LOW AND 4 MEDICAL MEDICAL HIGH SUPPLY SUPPLY Epicrisis INC R SOLUTION/ CHIPS LANCETS A4259 LIBERATOR LIBERATOR PER BOX 4 MEDICAL MEDICAL OF 100 SUPPLY SUPPLY INC INC BLD GLU A4253 LIBERATOR LIBERATOR TEST/REAG 4 MEDICAL MEDICAL T STRIPS SUPPLY SUPPLY HOME BLD INC INC GLU MON-50 SPRING-PO A4258 LIBERATOR LIBERATOR WERED 4 MEDICAL UNIT EDUCATOR SUPPLY SUPPLY FOR INC INC LANCET EACH CYTP 13605 ST [facility] DON CERVICAL/ 4 [facility] VAGINAL MED CTR REQ INTERP PHYSICIAN CYTP C/V [address] AUTO THIN 4 [facility] EVENS LYR MED CTR MED CTR PREPJ SCR REACTOR SERVICE OPERATOR ST REACTOR SERVICE OPERATOR ST MNL RESCR PHYS CHIROPRAC 69262 SPERBECK SPERBECK TIC 4 MAR MAR MANIPULAT RACHEL TX SPINAL 3-4 REGIONS CHIROPRAC 31519 SPERBECK SPERBECK TIC 4 MAR MAR MANIPLTV TX EXTRASPIN AL 1/> REGION EDUCATION 88119 ST NETO WAE &TRAINING 4 EVENS SELF-MGMT PHYSICIAN NONPHYS S 1 PT CHIROPRAC 07045 SPERBECK SPERBECK TIC 4 MAR MAR MANIPLTV TX EXTRASPIN AL 1/> REGION CHIROPRAC 29558 SPERBECK SPERBECK TIC 4 MAR MAR MANIPULAT RACHEL [place] SPINAL 3-4 REGIONS TYMPANOME 86980 RUBINSTEI RUBINSTEI TRY 4 N GULSHAN N GULSHAN PURE TONE 38327 RUBINSTEI RUBINSTEI 4 N GULSHAN N GULSHAN AUDIOMETR Y AIR & BONE CHIROPRAC 80426 SPERBECK SPERBECK TIC 4 MAR MAR MANIPULAT RACHEL TX SPINAL 3-4 REGIONS CHIROPRAC 73081 SPERBECK SPERBECK TIC 4 MAR MAR MANIPLTV TX EXTRASPIN AL 1/> REGION CHIROPRAC 21688 SPERBECK SPERBECK TIC 4 MAR MAR MANIPLTV TX EXTRASPIN AL 1/> REGION CHIROPRAC 04538 SPERBECK SPERBECK TIC 4 MAR MAR MANIPULAT RACHEL TX SPINAL 3-4 REGIONS CHIROPRAC 59004 SPERBECK SPERBECK TIC 4 MAR MAR MANIPULAT RACHEL TX SPINAL 3-4 REGIONS CHIROPRA 16321 SPERBECK SPERBECK TIC 4 MAR MAR MANIPLTV TX EXTRASPIN AL 1/> REGION CHIROPRAC 88763 SPERBECK SPERBECK TIC 4 MAR MAR MANIPLTV TX EXTRASPIN AL 1/> REGION CHIROPRA 42237 SPERBECK SPERBECK TIC 4 MAR MAR MANIPULAT RACHEL TX SPINAL 3-4 REGIONS CHIROPRA 50911 SPERBECK SPERBECK TIC 4 MAR MAR MANIPULAT RACHEL TX SPINAL 3-4 REGIONS CHIROPRA 32161 SPERBECK SPERBECK TIC 4 MAR MAR MANIPLTV TX EXTRASPIN AL 1/> REGION CHIROPRA 48141 SPERBECK SPERBECK TIC 4 MAR MAR MANIPLTV TX EXTRASPIN AL 1/> REGION CHIROPRA 74429 SPERBECK SPERBECK TIC 4 MAR MAR MANIPULAT RACHEL TX SPINAL 3-4 REGIONS SBSQ [address] CARE/DAY 25 PHYSICIAN MINUTES S SBSQ [address] CARE/DAY 35 PHYSICIAN MINUTES S SBSQ [address] CARE/DAY 25 PHYSICIAN MINUTES S CENTRAL 3897 ST VENOUS 4 [facility] CHOUTH CATHETER FT FT PLACEMENT HU LUI WITH GUIDANCE SBSQ [address] YEAR LAT CARE/DAY 35 PHYSICIAN MINUTES S NON-INVAS [address] ST RACHEL 4 EVENSANDRES HORNER MECHANICA FT FT L HU LUI VENTILATI ON INITIAL 54990 [facility] INPATIENT 4 [facility] FINA CONSULT NEW/ESTAB PHYSICIAN PT 80 S MIN RADIOLOGI 99450 RADIOLOGY NEILS ESTHER C EXAM 4 CHEST 2 ASSOCIATE VIEWS S OF NOTH FRONTAL&L ATERAL OPHTH 42144 [facility] SANT[facility] 8 JR, JR, XM&EVAL LISA BELLO NEW PT 1/> VST DETERMINA 23153 JACQUE SANTILLAN TION 8 JR, JR, REFRACTIV LISA Yuan [facility] PRESSURI 68621 URGENT ANCIRO, ED/NONPRE 8 MEDICAL ZAHRA SSURIZED CARE INHALATIO N TREATMENT RADIOLOGI 28692 [facility] 8 VILLLissy KUMAR EXAMINATI RADIOLOGY A ON CHEST ASSOC SINGLE VIEW FRONTAL BLOOD 09823 LAB FAZAL LAB FAZAL COUNT 8 AMERIC AMER[employer] 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 - 7 7 [facility] INPATIENT [facility] OFFICE 42177 [facility] 7 7 [facility] T VISIT 15 PHYSICIAN MINUTES S OFFICE 63479 [facility] 7 7 [facility] T VISIT [address] 7 7 [facility] OUTPATI T [facility] ST[facility] - [facility] 7 7 [facility] LI T VISIT LOW/MODER SEVERITY OFFICE 68951 [facility] 7 7 [facility] T NEW 45 MINUTES PHYSICIAN S OFFICE 03646 [facility] 7 7 [facility] YEAR T VISIT 15 PHYSICIAN [facility] ST - 7 7 [facility] OFFICE 27535 [facility] 7 [facility] T VISIT 25 PHYSICIAN [facility] LUIS MANUEL - 7 7 [facility] OUTPATIEN INC T EMERGENCY 33940 [facility] 7 7 [facility] DEPARTMEN INC T VISIT HIGH/URGE NT SEVERITY [facility] - 7 7 [facility] - 7 7 [facility] 76465 [facility]. 7 7 [facility] T VISIT MODERATE SEVERITY HOSPITAL ST - 7 7 [facility] INPATIENT [facility] LUIS MANUEL - 7 7 [facility] OUTPATIEN INC T EMERGENCY 18654 [facility] 7 7 [facility] DEPARTMEN INC T VISIT MODERATE SEVERITY OFFICE 87871 [facility] OUTPATIEN 6 6 [facility] YEAR LAT T VISIT 15 [facility] ST - 6 6 [facility] OUTPATIEN MED CTR T REACTOR SERVICE OPERATOR ST EMERGENCY 59481 ST 6 6 [facility] DEPARTMEN MED CTR T VISIT REACTOR SERVICE OPERATOR HIGH/URGE NT SEVERITY HOSPITAL ST - 6 6 [facility] INPATIENT MED CTR REACTOR SERVICE OPERATOR ST OFFICE 72194 [facility] OUTPATIEN 6 6 [facility] GRE T VISIT 15 PHYSICIAN [facility] ST - 6 6 [facility] INPATIENT MED CTR REACTOR SERVICE OPERATOR ST OFFICE 56740 [facility] 6 6 [facility] T VISIT 25 PHYSICIAN [facility] ST. - 6 6 [facility] OUTPATIEN JULIO T OFFICE 20358 ST JEFF ANAYA OUTPATIEN 6 6 [facility] T VISIT 25 PHYSICIAN MIN[address]ES S [facility] [address] - 5 5 [facility] OUTPATIEN MED CTR T REACTOR SERVICE OPERATOR EMERGENCY 16460 ST 5 5 [facility] MED CTR T VISIT REACTOR SERVICE OPERATOR MODERATE SEVERITY OFFICE 46602 RUBINSTEI RUBINSTEI OUTPATIEN 5 5 N GULSHAN N GULSHAN T VISIT [address] - 5 5 [facility] OUTPATIEN [facility] OFFICE 17721 RUBINSTEI RUBINSTEI OUTPATIEN 5 5 N GULSHAN N GULSHAN T VISIT [address] [facility] OUTPATIEN 4 4 EVENS REGAN T VISIT 15 PHYSICIAN MINUTES S OFFICE 59940 FOOT TIRONE OUTPATIEN 4 4 SPECIALIS LUIS ANGEL T VISIT TS OF 15 GREATER MINUTES OFFICE 07319 [facility] 4 [facility] GIANNA T VISIT [address] ACCESS 4 4 [facility] LI OFFICE 62620 FOOT TIRONE OUTPATIEN 4 4 SPECIALIS LUIS ANGEL T VISIT TS OF [address] ACCESS 4 4 [facility] LI EMERGENCY 28737 ST. 4 4 [facility] DEPARTMEN LI T VISIT MODERATE SEVERITY OFFICE 77540 [facility] 4 4 [facility] YEAR LAT T VISIT 25 PHYSICIAN MINUTES S OFFICE 00845 ST R[facility] OUTPATIEN 4 4 [facility] JAM T VISIT MED CTR [address] - OTHER 4 4 [facility] MED CTR REACTOR SERVICE OPERATOR ST OFFICE 45584 [facility] OUTPATIEN 4 4 [facility] REGAN T VISIT 25 PHYSICIAN MINUTES S OFFICE 92374 ST DONNAILLER CONSULTAT 4 4 [facility] GIANNA ION NEW/ESTAB PHYSICIAN PATIENT S 60 MIN OFFICE 70666 RUBINSTEI RUBINSTEI OUTPATIEN 4 4 N GULSHAN N GULSHAN T VISIT 40 MINUTES OFFICE 12342 RUBINSTEI RUBINSTEI OUTPATIEN 4 4 N GULSHAN N GULSHAN T VISIT [address] AGUILAR MAR OUTPATIEN 4 4 [facility] T NEW 45 MINUTES PHYSICIAN S EMERGENCY 13807 ST GALLATIN 4 4 [facility] DUSTIN DEPARTMEN T VISIT PHYSICIAN MODERATE S SEVERITY EMERGENCY 23857 EMERGENCY SELWYN DEPT 4 4 CARE CHRIS VISIT PHYS HIGH NORTHERN SEVERITY& THREAT [facility] ST - 4 4 [facility] OUTPATIEN FT T HU OFFICE 03903 ONCOLOGY TERESITA CHR OUTPATIEN 4 4 HEMATOLOG T VISIT Y CARE 15 INC MINUTES EMERGENCY [address] ST DANRONEYAN 4 4 [facility] HOL DEPARTMEN MED CTR T VISIT HIGH/URGE NT SEVERITY OFFICE 62327 TANGVALD TANGVALD OUTPATIEN 4 4 IV THO IV THO T VISIT [address] BUDHANI OUTPATIEN 4 4 [facility] IRF T VISIT 25 PHYSICIAN MINUTES S HOSP[facility] ST - 4 4 [facility] OUTPATIEN MED CTR T [facility] ST - 4 4 [facility] OUTPATIEN MED CTR T REACTOR SERVICE OPERATOR OFFICE 42825 FOOT TIRONE OUTPATIEN 4 4 SPECIALIS LUIS ANGEL T VISIT TS OF 15 [address] - 4 4 [facility] OUTPATIEN [facility] OFFICE 11439 ONCOLOGY TERESITA CHR OUTPATIEN 4 4 HEMATOLOG T VISIT Y CARE 25 INC MINUTES OFFICE 52677 RUBINSTEI RUBINSTEI OUTPATIEN 4 4 N GULSHAN N GULSHAN T VISIT 40 MINUTES EMERGENCY 29760 EMERGENCY LE HIE DEPT 4 4 CARE VISIT PHYS HIGH NORTHERN SEVERITY& THREAT FUNCJ EMERGENCY 88649 EMERGENCY SHAE HO DEPT 4 4 CARE VISIT PHYS HIGH NORTHERN SEVERITY& THREAT FUNCJ EMERGENCY 39183 EMERGENCY [facility] JESUS 4 4 CARE DEPARTMEN PHYS T VISIT NORTHERN HIGH/URGE NT SEVERITY OFFICE 57195 ST DOUGLAS JAYESH OUTPATIEN 4 4 [facility] T VISIT 25 PHYSICIAN MINUTES OFFICE 89347 [facility] CONSULTAT 4 4 [facility] JAM ION MED CTR NEW/ESTAB PATIENT [address] - 4 4 [facility] OUTPATIEN MED CTR T [facility] ST - 4 4 [facility] OUTPATIEN [facility] ST. - 4 4 [facility] OUTPATIEN [facility] OFFICE [address] DOUGLAS JAYESH OUTPATIEN 4 4 [place] T VISIT 25 PHYSICIAN MINUTES [facility] - 4 4 [place] OUTPATIEN LI T INITIAL [address] VIOLET PREVENTIV 4 4 EVENSANDRES Yuan MEDICINE PHYSICIAN NEW PT S AGE 18-39YRS [facility] ST - 4 4 [place] OUTPATIEN [facility] T [facility] OFFICE 15690 FOOT TIRONE OUTPATIEN 4 4 SPECIALIS LUIS ANGEL T NEW 30 TS OF MINUTES [facility] OFFICE 22561 RUBINSTEI RUBINSTEI OUTPATIEN 4 4 N GULSHAN N GULSHAN T NEW 60 MINUTES OFFICE 34841 [facility] OUTPATIEN 4 4 MAR SEP T NEW [address] DOUGLAS JAYESH OUTPATIEN 4 4 [place] T NEW 45 MINUTES [facility] ST - 4 4 [facility] EMERGENCY 57345 EMERGENCY DAVREN DEPT 4 4 CARE ESTHER VISIT PHYS [facility] OFF[facility] 56558 [facility]ENT [facility], OUTPATIEN 8 8 MEDICAL ZAHRA T NEW 30 CARE MINUTES EMERGENCY 38051 [facility], 8 8 VALERIA GOMES [facility] EMERGENCY C T VISIT PHYS INC HIGH/URGE [facility] - 8 8 BETH OUTPATIEN D T [facility] OFFICE 87272 JAMES HINSON OUTPATIEN [address], T VISIT [facility] LARRY 15 D MINUTES
--- OUTSIDE RECORDS SUMMARY | 2017-05-08 20:38 | External Medical Summary Rpt ---
Author Author KENDALL Kang, [employer] Organization [employer] Address Unknown Phone Unavailable
--- OUTSIDE RECORDS SUMMARY | 2017-05-08 20:38 | External Medical Summary Rpt | CCD ---
Author Author , KENDALL ARGUETA Address Unknown Phone [email or web address] Support Name Relationship Address Phone ICE, Next Of Kin Unknown Unavailable DAHIANA Immunization Name Date Rout CVX Reac Dose Comm Prov Is Faci e tion ent ider Refu lity Give sed n Infl 10-0 0.5 Hist D202 No D202 uenz 5-20 mL oric 52 52 a 17 al Quad Info rmat W/Pr ion es - Sour ce Unsp ecif ied PCV1 09-2 Intr 133 999 Hist STEP No STEP 3 8-20 amus oric PULM PULM 16 cula al JARVIS JARVIS r Info rmat ion - Sour ce Unsp ecif ied Infl 09-0 Intr 999 Hist D202 No D202 uenz 1-20 amus oric 52 52 a 16 cula al Quad r Info rmat W/Pr ion es - Sour ce Unsp ecif ied PPV2 01-0 Intr 33 999 Hist 1005 No 1005 3 6-20 amus oric 00 00 15 cula al r Info rmat ion - Sour ce Unsp ecif ied PPV2 12-3 Intr 33 999 Hist 1005 No 1005 3 0-20 amus oric 00 00 14 cula al r Info rmat ion - Sour ce Unsp ecif ied Infl 09-2 Intr 88 999 Hist STEP No STEP uenz 4-20 amus oric PULM PULM a, 14 cula al JARVIS JARVIS UF r Info rmat ion - Sour ce Unsp ecif ied
--- OUTSIDE RECORDS SUMMARY | 2017-05-08 20:38 | External Medical Summary Rpt | CCD ---
Author Author , KENDALL ARGUETA Address Unknown Phone [email or web address] Support Name Relationship Address Phone ICE, Next [...]
[2017-05-08 20:43] VITALS: BP 155/94
== END 2017-05-08 20:45 | disposition home or self-care (01) ==
LOC: ER 19:01
DX: R51 Headache (principal); Z91.040 Latex allergy status; Z88.0 Allergy status to penicillin; I10 Essential (primary) hypertension; J45.909 Unspecified asthma, uncomplicated; E11.9 Type 2 diabetes mellitus without complications; Z79.4 Long term (current) use of insulin; F41.8 Other specified anxiety disorders
CPT/HCPCS: J0595